=== PATIENT | male | born 1955 | race Caucasian/White ===

== ENCOUNTER 2020-03-11 09:17 | Emergency (ER) | payer BC ==
[~2020-03-11] VITALS: Ht 177.8 cm; Wt 127.3 kg
[2020-03-11 09:44] VITALS: Ht 177.8 cm; Wt 127.3 kg
[2020-03-11 10:59] LABS: BASOPHILS 0.1 % (0-2); EOSINOPHILS 0 % (0-7); HEMATOCRIT 41.7 % (42.0-54.0); HEMOGLOBIN 13.4 g/dL (13.5-17.5); IMMATURE GRANULOCYTES 0.3 % (0-5); LYMPHOCYTES 4.1 % (15-50); MCH 26.8 pg (26.0-34.0); MCHC 32.1 g/dL (31.0-37.0); MCV 83.4 fL (80.0-100.0); MEAN PLATELET VOLUME 9.3 fL (7.4-10.4); MONOCYTES 2.6 % (2-11); NEUTROPHILS 92.9 % (40-80); PLATELET COUNT 146 10x3/uL (130-400); RDW 14.4 % (11.5-14.5); WBC 13.6 10x3/uL (4.8-10.8)
[2020-03-11 11:09] LABS: CALC OSMOLALITY 263 mosm/kg (275-300); CALCIUM 8.7 mg/dL (8.5-10.1); CHLORIDE - SERUM 93 mmol/L (98-107); CREATININE - SERUM 0.8 mg/dL (0.6-1.3); GLUCOSE 125 mg/dL (74-106); POTASSIUM - SERUM 3.8 mmol/L (3.5-5.1); SODIUM 130 mmol/L (136-145); UREA NITROGEN 19 mg/dL (7-18); eGFR NON AFRICAN AMERICAN > 90 mL/min (90-120)
[2020-03-11 11:17] LABS: ALBUMIN 3.4 g/dL (3.4-5.0); ALKALINE PHOSPHATASE 66 U/L (30-120); ALT (SGPT) 30 U/L (10-68); BILIRUBIN - TOTAL 2.09 mg/dL (0.2-1.3)
[2020-03-11 11:42] LABS: BILIRUBIN NEGATIVE (NEGATIVE); GLUCOSE NEGATIVE (NEGATIVE); KETONE NEGATIVE (NEGATIVE); NITRITE NEGATIVE (NEGATIVE); UROBILINOGEN NORMAL (NORMAL)
[2020-03-11 11:44] LABS: BACTERIA FEW /hpf (NEGATIVE); RED CELLS - URINE 0-5 /hpf (0-5); WHITE CELLS - URINE 0-5 /hpf (NEGATIVE)
[2020-03-11] MEDS ORDERED: NAPROSYN500 MG PO (12:47)
[2020-03-11] MEDS ORDERED: BACLOFEN20 M1 PO (12:47)
[2020-03-11] MEDS ORDERED: VIBRAMYCIN 100100 MG PO (12:47)
[2020-03-11 13:17] VITALS: BP 138/52
== END 2020-03-11 13:17 | disposition home or self-care (01) ==
LOC: D.ER 09:17
PROVIDERS: Family Medicine
DX: M54.5 Low back pain (principal); I88.9 Nonspecific lymphadenitis, unspecified; E11.40 Type 2 diabetes mellitus with diabetic neuropathy, unspecified; M79.605 Pain in left leg

== ENCOUNTER 2020-03-14 15:58 | Inpatient (IN) | payer BC ==
[~2020-03-14] VITALS: Ht 177.8 cm; Wt 128.8 kg
[~2020-03-14 15:58] MED LIST: BACLOFEN20 M1 PO; NAPROSYN500 MG PO; VIBRAMYCIN 100100 MG PO
[2020-03-14 16:55] LABS: BASOPHILS 0.1 % (0-2); EOSINOPHILS 0.4 % (0-7); HEMATOCRIT 40.8 % (42.0-54.0); HEMOGLOBIN 12.8 g/dL (13.5-17.5); IMMATURE GRANULOCYTES 2.9 % (0-5); MCH 26.4 pg (26.0-34.0); MCHC 31.4 g/dL (31.0-37.0); MCV 84.1 fL (80.0-100.0); MEAN PLATELET VOLUME 9.3 fL (7.4-10.4); MONOCYTES 3.7 % (2-11); NEUTROPHILS 87.9 % (40-80); PLATELET COUNT 155 10x3/uL (130-400); RBC 4.85 10x6/uL (4.20-6.10); RDW 14.5 % (11.5-14.5); WBC 17.1 10x3/uL (4.8-10.8)
[2020-03-14 17:06] VITALS: BP 151/77
[2020-03-14 17:26] VITALS: BP 151/77; BMI 40.8
[2020-03-14 17:26] LABS: ALKALINE PHOSPHATASE 294 U/L (30-120); ALT (SGPT) 23 U/L (10-68); BILIRUBIN - TOTAL 2.59 mg/dL (0.2-1.3); CALC OSMOLALITY 273 mosm/kg (275-300); CALCIUM 8.5 mg/dL (8.5-10.1); CARBON DIOXIDE 32.7 mmol/L (21.0-32.0); CHLORIDE - SERUM 95 mmol/L (98-107); CREATININE - SERUM 0.6 mg/dL (0.6-1.3); GLUCOSE 140 mg/dL (74-106); PRO BNP 537 pg/mL (0-125); PROTEIN - SERUM 6.4 g/dL (6.4-8.2); SODIUM 136 mmol/L (136-145); UREA NITROGEN 13 mg/dL (7-18); eGFR NON AFRICAN AMERICAN > 90 mL/min (90-120)
[2020-03-14 20:00] VITALS: BP 119/65
--- NOTE | 2020-03-14 20:00 | NUR ---
SITTING UP IN BED. ALERT AND ORIENTED X4. SAO2 IN THE 80S ON ROOM AIR. O2 @ 3L/NC APPLIED AT THIS TIME. DENIES SOB. EMPTIED URINAL AT THIS TIME. EDEMA NOTED TO BLE. BLE ARE RED. LARGE FLUID FILLED BLISTERS NOTED TO LLE. RATES PAIN IN BACK AND LEGS 8. NS @ KVO INFUSING IN LT FOREARM. TALKATIVE WITH STAFF. SR ELEVATED X2. CL IN REACH. REQUESTS PAIN MED WITH PM MEDS.
--- NOTE | 2020-03-14 21:20 | NUR ---
MEDICATED WITH MORPHINE FOR C/O LEG AND BACK PAIN. CL IN REACH.
--- NOTE | 2020-03-14 22:30 | NUR ---
LYING IN BED WITH EYES CLOSED. RESP NONLABORED. NO DISTRESS. CL IN REACH.
[2020-03-15] VITALS: BP 96/62
--- NOTE | 2020-03-15 02:23 | NUR ---
HAS RESTED WELL TONIGHT. NO DISTRESS. RESP NONLABORED. O2 @ 3L/NC. CL IN REACH.
[2020-03-15 04:00] VITALS: BP 119/69
[2020-03-15 04:33] LABS: BASOPHILS 0.1 % (0-2); EOSINOPHILS 0.4 % (0-7); HEMATOCRIT 38.5 % (42.0-54.0); HEMOGLOBIN 12.1 g/dL (13.5-17.5); IMMATURE GRANULOCYTES 3.4 % (0-5); LYMPHOCYTES 5.1 % (15-50); MCH 26.8 pg (26.0-34.0); MCHC 31.4 g/dL (31.0-37.0); MCV 85.4 fL (80.0-100.0); MEAN PLATELET VOLUME 9.6 fL (7.4-10.4); MONOCYTES 5.4 % (2-11); NEUTROPHILS 85.6 % (40-80); PLATELET COUNT 167 10x3/uL (130-400); RBC 4.51 10x6/uL (4.20-6.10); RDW 14.9 % (11.5-14.5); WBC 15.7 10x3/uL (4.8-10.8)
[2020-03-15 04:45] LABS: CALC OSMOLALITY 271 mosm/kg (275-300); CALCIUM 8.2 mg/dL (8.5-10.1); CHLORIDE - SERUM 96 mmol/L (98-107); GLUCOSE 116 mg/dL (74-106); MAGNESIUM - SERUM 1.8 mg/dL (1.8-2.4); PHOSPHOROUS 5.2 mg/dL (2.5-4.9); POTASSIUM - SERUM 4.3 mmol/L (3.5-5.1); SODIUM 135 mmol/L (136-145); UREA NITROGEN 15 mg/dL (7-18); eGFR NON AFRICAN AMERICAN 90 mL/min (90-120)
[2020-03-15 04:56] LABS: CREATININE - SERUM 0.9 mg/dL (0.6-1.3)
[2020-03-15 04:58] LABS: INR 1.17 (0.85-1.17); PROTIME 14.8 SECONDS (11.6-15.0)
--- NOTE | 2020-03-15 07:52 | NUR ---
PT SITTING UP IN BED. RESP EVEN AND UNLABORED. O2 @ 3L NC IN PLACE. PT REPORTS PAIN 2/10 AT HTIS TIME. IV TO LEFT FOREARM WITH NS @ KVO INFUSING VIA PUMP. SITE WITHOUT REDNESS OR EDEMA. LEFT LOWER EXTREMITY, REDDENED WITH TWO LARGE BLISTERS INTACT, ONE RUPTURED BLISTER TO BACK OF KNEE AND DRAINING YELLOW DRAINAGE. PROVIDED URINE SPECIMEN CUP AND EDUCATED PT REGARDING NEED FOR URINE SAMPLE. PT VOICES UNDERSTANDING AT THIS TIME. DENIES FURTHER NEEDS AT THIS TIME. CL WITHIN REACH. ENCOURAGED TO CALL WITH NEEDS. CONTINUE POC
[2020-03-15 08:02] VITALS: BP 119/76
[2020-03-15 10:31] LABS: BILIRUBIN NEGATIVE (NEGATIVE); GLUCOSE NEGATIVE (NEGATIVE); KETONE NEGATIVE (NEGATIVE); NITRITE NEGATIVE (NEGATIVE); SPECIFIC GRAVITY 1.015 (1.005-1.020); UROBILINOGEN NORMAL (NORMAL)
[2020-03-15 10:42] LABS: BACTERIA FEW /hpf (NEGATIVE); EPITHELIAL CELLS OCC /hpf (0-5); RED CELLS - URINE 0-5 /hpf (0-5); WHITE CELLS - URINE NSEEN /hpf (NEGATIVE)
[2020-03-15 11:24] VITALS: BMI 40.7
[2020-03-15 12:06] VITALS: BP 103/69
[2020-03-15 16:46] VITALS: BP 96/55
[2020-03-15 20:00] VITALS: BP 92/50
--- NOTE | 2020-03-15 20:00 | NUR ---
PATIENT SITTING UP IN BED AND TALKING TO HIMSELF. PATIENT IS A&O X3, DISORIENTATED TO SITUATION. NO S/S OF DISTRESS. NO C/O AT THIS TIME. PATIENT IS ON 3L NASAL CANNULA OF 02. PATIENT HAS IV IN LEFT FOREARM, NORMAL SALINE @ KVO. IV IS PATENT WITHOUT REDNESS, SWELLING, OR TENDERNESS. PATIENT HAS TELEMETRY: 104 SINUS TACH, BBB. PATIENT HAS 5 BLISTERS ON LEFT LEG, 3 OF WHICH ARE OPEN AND DRAINING. PATIENT RIGHT LEG IS BRIGHT RED, AND VERY SWOLLEN. PATIENT LEFT LEG IS SLIGHTLY SWOLLEN, AND HAS PATCHES OF REDNESS. CALL LIGHT WITHIN REACH. WILL CONTINUE TO MONITOR.
[2020-03-16] VITALS (7 sets, daily range): BP systolic 81–109; BP diastolic 52–99
--- NOTE | 2020-03-16 04:19 | NUR ---
I have reviewed this patient and I concur with the Shift Assessment completed by the Licensed Practical Nurse today this shift.
[2020-03-16 06:12] LABS: BASOPHILS 0.1 % (0-2); EOSINOPHILS 0.6 % (0-7); HEMATOCRIT 38.5 % (42.0-54.0); HEMOGLOBIN 11.9 g/dL (13.5-17.5); IMMATURE GRANULOCYTES 1.7 % (0-5); LYMPHOCYTES 5.7 % (15-50); MCH 26.7 pg (26.0-34.0); MCHC 30.9 g/dL (31.0-37.0); MCV 86.5 fL (80.0-100.0); MEAN PLATELET VOLUME 9.5 fL (7.4-10.4); MONOCYTES 6.6 % (2-11); NEUTROPHILS 85.3 % (40-80); RBC 4.45 10x6/uL (4.20-6.10); RDW 15.1 % (11.5-14.5); WBC 15.2 10x3/uL (4.8-10.8)
[2020-03-16 06:19] LABS: PLATELET COUNT 206 10x3/uL (130-400)
[2020-03-16 06:26] LABS: ANION GAP 12.1 mmol/L (8-16); CALCIUM 7.8 mg/dL (8.5-10.1); CARBON DIOXIDE 31.4 mmol/L (21.0-32.0); CREATININE - SERUM 2.7 mg/dL (0.6-1.3); POTASSIUM - SERUM 4.5 mmol/L (3.5-5.1)
--- NOTE | 2020-03-16 07:16 | NUR ---
PT SITTING UP IN BED WATCHING TV. RESP EVEN AND UNLABORED AT THIS TIME. O2 @ 3L NC IN PLACE. PT DENIES PAIN AT THIS TIME. IV TO LEFT FOREARM WITH NS @ KVO INFUSING VIA PUMP. SITE WITHOUT REDNESS OR EDEMA. PT DENIES FURTHER NEEDS AT THIS TIME. CL WITHIN REACH. ENCOURAGED TO CALL WITH NEEDS. CONTINUE POC
--- NOTE | 2020-03-16 12:30 | NUR ---
PT RESTING IN BED. BLADDER SCAN PERFORMED AT THIS TIME. 87 ML SCANNED AT THIS TIME. PT DENIES FEELINGS OF NEEDING TO URINATE AT THIS TIME. WILL CONTINUE TO MONITOR.
--- NOTE | 2020-03-16 14:24 | NUR ---
LEFT LEG IS EDEMATOUS, DISCOLORED AND WEEPING LARGE AMOUNTS OF SEROUS DRAINAGE. THE SKIN HAS A COBBLESTONE APPEARANCE AND HAS SEVERAL RUPTURED BLISTERS. THERE WAS NO ODOR NOTED. COVERED OPEN AREAS WITH XEROFORM GAUZE- THEN ABD PADS -THEN WRAPPED WITH KERLIX. RECOMMENDED DAILY DRESSING CHANGES - UNLESS THE DRESSING BECOMES SATURATED - THEN IT WILL BE NECESSARY TO CHANGE IT NEEDED. INSTRUCTED PT TO KEEP LEGS ELEVATED. HE VOICED HIS UNDERSTANDING. WOUND CARE WILL MONITOR.
--- NOTE | 2020-03-16 20:00 | NUR ---
PATIENT RESTING IN BED WITH EYES CLOSED. NO S/S OF ACUTE DISTRESS. NO C/O AT THIS TIME. PATIENT IS ON 3L NASAL CANNULA O2. PATIENT HAS IV IN LEFT FOREARM NORMAL SALINE @ KVO. IV IS PATENT WITHOUT REDNESS, SWELLING, OR TENDERNESS. PATIENT HAS TELEMETRY: 101 SINUS TACH, BBB. PATIENT HAS DRESSING ON LEFT FOOT/LEG. DRESSING IS CLEAN AND INTACT, BUT DRAINAGE HAS STARTED TO SEEP THROUGH. WILL CHANGE DRESSING. PATIENT RIGHT LEG HAS RED PATCHES, BUT IS BETTER THAN THE LEFT LEG. CALL LIGHT WITHIN REACH. WILL CONTINUE TO MONITOR.
--- NOTE | 2020-03-16 22:20 | NUR ---
PATIENT LEFT LEG DRESSING CHANGED. XERO FORM APLIED TO BLISTERS AND OPEN AREAS, COVERED WITH ABDOMNIAL PADS, AND WRAPPED IN CURLEX. DRESSING IS C/D/I. CALL LIGHT WITHIN REACH. WILL CONTINUE TO MONITOR.
[2020-03-17] VITALS: BP 104/57
--- NOTE | 2020-03-17 00:28 | NUR ---
I have reviewed this patient and I concur with the Shift Assessment completed by the Licensed Practical Nurse today this shift.
[2020-03-17 04:00] VITALS: BP 112/64
--- NOTE | 2020-03-17 04:29 | NUR ---
PATIENT DRESSING WAS SATURATED. DRESSING CHANGED AND NOW C/D/I. CALL LIGHT WITHIN REACH. WILL CONTINUE TO MONITOR.
[2020-03-17 05:55] LABS: BASOPHILS 0.1 % (0-2); EOSINOPHILS 1.4 % (0-7); HEMATOCRIT 38.7 % (42.0-54.0); HEMOGLOBIN 12.1 g/dL (13.5-17.5); IMMATURE GRANULOCYTES 2.2 % (0-5); LYMPHOCYTES 4.8 % (15-50); MCH 26.6 pg (26.0-34.0); MCHC 31.3 g/dL (31.0-37.0); MCV 85.1 fL (80.0-100.0); MEAN PLATELET VOLUME 9.3 fL (7.4-10.4); MONOCYTES 5.7 % (2-11); NEUTROPHILS 85.8 % (40-80); PLATELET COUNT 247 10x3/uL (130-400); RBC 4.55 10x6/uL (4.20-6.10); RDW 15.2 % (11.5-14.5)
[2020-03-17 06:05] LABS: ANION GAP 12.8 mmol/L (8-16); CALCIUM 8.5 mg/dL (8.5-10.1); CARBON DIOXIDE 28.6 mmol/L (21.0-32.0); POTASSIUM - SERUM 4.4 mmol/L (3.5-5.1)
[2020-03-17 06:06] LABS: CREATININE - SERUM 4.2 mg/dL (0.6-1.3)
--- NOTE | 2020-03-17 07:47 | NUR ---
AWAKE AND ALERT. ORIENTED X3. NO C/O AT THIS TIME. LUNGS ARE CLEAR BILATERALLY, OCCASSIONAL DRY COUGH REPORTED. WILL MONITOR. SKIN IS INTACT WTIHOUT REDNESS EXCEPT WOUNDS TO LEFT LEG WHICH HAVE A DRESSING IN PLACE. THIS IS SATURATED WITH SEROUS DRAINAGE. WILL CHANGE AFTER BREAKFAST. IV TO LEFT FOREARM IS PATENT WITHOUT REDNESS AT INSERTION SITE. DENIES NEEDS.
[2020-03-17 08:02] VITALS: BP 98/63
--- NOTE | 2020-03-17 09:30 | NUR ---
UP TO CHAIR AT BEDSIDE PER PT. GIVEN BATH WHILE UP AND LINENS CHANGED. DRESSING TO LEFT LEG CHANGED WELL. IS STILL OOZING SEROUS FLUIDS. WILL CONTINUE TO MONITOR.
--- NOTE | 2020-03-17 12:45 | NUR ---
ATE ALL OF LUNCH. DENIES NEEDS. NO CHANGES NOTED.
[2020-03-17 13:58] VITALS: BP 108/70
--- NOTE | 2020-03-17 14:00 | NUR ---
DR JOHNSON HERE AND CHANGED DRESSING TO LEFT LEG.
[2020-03-17 14:38] VITALS: Ht 177.8 cm; Wt 128.8 kg
[2020-03-17 18:13] VITALS: BP 112/61
--- NOTE | 2020-03-17 19:25 | NUR ---
IN AND OUT CATH. REMOVED 100 ML. STERILE TECHNIQUE MAINTAINED. POST VOID RESIDUAL CHECKED WAS 0 ML. CL IN REACH. NO FURTHER NEEDS AT THIS TIME. WCTM
--- NOTE | 2020-03-17 20:36 | NUR ---
IV TO LFA INFILTRATED.DC'D WITH TIP INTACT. RESITED TO RFA WITH 20 G X 1 STICK PER JONATHAN SPOOLER OPERATOR. TOLERATED WELL. DRESSING TO LLE INTACT WITH YELLOW DRAINAGE NOTED. CL IN REACH
--- NOTE | 2020-03-17 22:30 | NUR ---
PATIENT HAS PULLED IV OUT. STANDING UP AT BEDSIDE. APPEARS DISORIENTED TO SURROUNDINS. LINENS CHANGED. ASSISTED PATIENT BACK TO BED. ANSWERS QUESTIONS APPROPRIATLEY AT THIS TIME.IV RESITED TO RFA. CL IN REACH. BED ALARM ON.
[2020-03-18] VITALS: BP 151/74
--- NOTE | 2020-03-18 02:30 | NUR ---
PATIENT WALKING TO NURSES STATION.NO CLOTHES ON. HAS PULLED IV OUT AGAIN.BED ALARM DID NOT SOUND. PATIENT ASSISTED BACK TO ROOM. LINENS CHANGED.PATIENT CLEANED. IV RESITED TO LFA. O2 @ 3L PER NC ON.
[2020-03-18 04:00] VITALS: BP 167/70
--- NOTE | 2020-03-18 04:20 | NUR ---
PATIENT UP IN BATHROOM.IV OUT. HAS DIARRHEA FROM BED TO BATHROOM. LINENS CHANGED. PATIENT CLEANED AND ASSISTED BACK TO BED.BED ALARM DID NOT SOUND. NING STACY PLACE ON BED. CL IN REACH. SR UP X2.IV NOT RESTARTED AT THIS TIME PER PATIENT REQUEST. ANSWERING QUESTIONS APPROPRIATELY.
--- NOTE | 2020-03-18 04:28 | NUR ---
I have reviewed this patient and I concur with the Shift Assessment completed by the Licensed Practical Nurse today this shift.
[2020-03-18 05:49] LABS: BASOPHILS 0.1 % (0-2); EOSINOPHILS 1.6 % (0-7); HEMATOCRIT 35.9 % (42.0-54.0); HEMOGLOBIN 11.3 g/dL (13.5-17.5); LYMPHOCYTES 5.6 % (15-50); MCHC 31.5 g/dL (31.0-37.0); MEAN PLATELET VOLUME 8.8 fL (7.4-10.4); MONOCYTES 7.9 % (2-11); NEUTROPHILS 79.8 % (40-80); PLATELET COUNT 233 10x3/uL (130-400); RBC 4.34 10x6/uL (4.20-6.10); RDW 14.9 % (11.5-14.5); WBC 14.8 10x3/uL (4.8-10.8)
[2020-03-18 05:50] LABS: MCV 82.7 fL (80.0-100.0)
[2020-03-18 06:24] LABS: ANION GAP 13.9 mmol/L (8-16); CALCIUM 8.2 mg/dL (8.5-10.1); CARBON DIOXIDE 27.5 mmol/L (21.0-32.0); CREATININE - SERUM 5.2 mg/dL (0.6-1.3); POTASSIUM - SERUM 4.4 mmol/L (3.5-5.1); VANCOMYCIN - RANDOM 27.9 ug/mL (10.0-20.0)
--- NOTE | 2020-03-18 08:00 | NUR ---
ASSESSMENT PER FLOW SHEET, PATIENT IS WITHOUT DISTRESS.ASSISTED UP TO BEDSIDE COMMODE AND BACK TO BED.FALL PREVENTION IN PLACE WITH NING MAT.
[2020-03-18 09:50] VITALS: BP 115/72
--- NOTE | 2020-03-18 09:50 | NUR ---
SPOKE WITH ALLAN HOU RE..INCREASED BUN,CREAT,LOVENOX AND RED RASH TO BODY.
[2020-03-18 13:40] VITALS: BP 115/78
--- NOTE | 2020-03-18 13:50 | MORECARE ---
CASE MANAGEMENT DISCHARGE SUMMARY PATIENT: CURLY CROWLEY UNIT: [id number] ADM DATE: 03/14/20 AGE: 64 : 53 SEX: M ROOM/BED: D.2205 AUTHOR: JAY RIVERO PHYSICIAN: REFERRING PHYSICIAN: EDDA ARIAS MD DATE OF SERVICE: 03/18/20 Discharge Plan Patient Name: CURLY CROWLEY Facility: [facility]:[place] : 1955 Planned Disposition: Anticipated Discharge Date: Discharge Date: Expected LOS: Initial Reviewer: [email or web address] Initial Review Date: 03/14/2020 Generated: 03/18/20 2:49 pm Patient Name: CURLY CROWLEY Page [phone] at 1350 All edits/amendments must be made on the electronic document DICTATION DATE: 03/18/20 1349 WIRE REPAIRER: GARY 03/18/20 1349 RPT#: [id number] DC DATE: STATUS: ADM IN [facility] [address] [place] [address] END OF REPORT
[2020-03-18 16:00] VITALS: BP 113/62
--- NOTE | 2020-03-18 16:15 | NUR ---
IV SITED TO LEFT HAND X1 STICK USING ASEPTIC TECH,20G.
--- NOTE | 2020-03-18 19:32 | NUR ---
PATIENT RESTING IN BED WITH NO S/S OF DISTRESS. PATIENT HAD LARGE BM. CHANGE MANAGEMENT FACILITATOR ASSISTED PATIENT CLEANING UP AND COMPLETED BED CHANGE. PATIENT DENIES OTHER NEEDS AT THIS TIME. BED IN LOWEST POSITION AND CALL LIGHT WITHIN REACH. ENCOURAGED THE PATIENT TO CALL IF HE HAS NEEDS. WILL CONTINUE TO MONITOR.
[2020-03-18 20:00] VITALS: BP 148/73
[2020-03-19] VITALS: BP 118/60
[2020-03-19 04:00] VITALS: BP 139/82
[2020-03-19 04:38] LABS: BASOPHILS 0.2 % (0-2); EOSINOPHILS 0.8 % (0-7); HEMATOCRIT 36.3 % (42.0-54.0); HEMOGLOBIN 11.5 g/dL (13.5-17.5); IMMATURE GRANULOCYTES 6.5 % (0-5); LYMPHOCYTES 6.6 % (15-50); MCH 26.1 pg (26.0-34.0); MCHC 31.7 g/dL (31.0-37.0); MCV 82.3 fL (80.0-100.0); MEAN PLATELET VOLUME 8.9 fL (7.4-10.4); MONOCYTES 7.2 % (2-11); NEUTROPHILS 78.7 % (40-80); RBC 4.41 10x6/uL (4.20-6.10); RDW 15.1 % (11.5-14.5); WBC 15.5 10x3/uL (4.8-10.8)
[2020-03-19 04:49] LABS: PLATELET COUNT 284 10x3/uL (130-400)
[2020-03-19 04:57] LABS: ANION GAP 14.6 mmol/L (8-16); CALCIUM 8.4 mg/dL (8.5-10.1); CARBON DIOXIDE 26.3 mmol/L (21.0-32.0); POTASSIUM - SERUM 4.9 mmol/L (3.5-5.1); VANCOMYCIN - RANDOM 24.7 ug/mL (10.0-20.0)
--- NOTE | 2020-03-19 06:29 | NUR ---
BLADDER SCAN REVEALED 217 ML
--- NOTE | 2020-03-19 06:41 | NUR ---
PATIENT VOIDED 175 ML POST BLADDER SCAN
[2020-03-19 07:41] LABS: APTT 46.1 SECONDS (22.8-39.4); INR 1.05 (0.85-1.17); PROTIME 13.6 SECONDS (11.6-15.0)
[2020-03-19 07:53] LABS: COMPLEMENT C4 31.5 mg/dL (17.4-52.2)
[2020-03-19 07:59] LABS: ALBUMIN 2.1 g/dL (3.4-5.0); ANION GAP 16.7 mmol/L (8-16); BILIRUBIN - TOTAL 1.37 mg/dL (0.2-1.3); CALCIUM 8.5 mg/dL (8.5-10.1); CARBON DIOXIDE 26.3 mmol/L (21.0-32.0); CREATININE - SERUM 6.2 mg/dL (0.6-1.3); MAGNESIUM - SERUM 3.1 mg/dL (1.8-2.4); PHOSPHOROUS 8.4 mg/dL (2.5-4.9); PROTEIN - SERUM 6.7 g/dL (6.4-8.2); THYROID STIMULATING HORMONE 2.17 uIU/mL (0.36-3.74)
[2020-03-19 08:04] LABS: C-REACTIVE PROTEIN 35.9 mg/dL (0.0-0.9)
[2020-03-19 08:37] LABS: ERYTHROCYTE SEDIMENTATION RATE 58 mm/hr (0-20)
[2020-03-19 09:05] VITALS: BP 140/77
--- NOTE | 2020-03-19 10:20 | NUR ---
PT RESTING QUIETLY IN BED WITH HOB ELEVATED. O2 @ [address]. PT DENIES PAIN AT THIS TIME. NO IV ACCESS AT THIS TIME. DRESSING NOTED TO LLE. CL WITHIN REACH. ENCOURAGED TO CALL WITH NEEDS. CL WITHIN REACH. CONTINUE POC.
[2020-03-19 12:54] VITALS: BP 150/73
--- NOTE | 2020-03-19 14:03 | NUR ---
Nutrition follow-up: Diet: ADA consistent CHO PO intake ~75% of meals Rash worse since admit Wt: 283# Labs reviewed; glucose under better control RDN following.
--- NOTE | 2020-03-19 14:31 | MORECARE ---
CASE MANAGEMENT DISCHARGE SUMMARY PATIENT: CURLY CROWLEY UNIT: [id number] ADM DATE: 03/14/20 AGE: 64 : 53 SEX: M ROOM/BED: D.2205 AUTHOR: JAY RIVERO PHYSICIAN: REFERRING PHYSICIAN: EDDA ARIAS MD DATE OF SERVICE: 03/19/20 Discharge Plan Patient Name: CURLY CROWLEY Facility: [facility]:[place] : 1955 Planned Disposition: Inpatient Rehab Anticipated Discharge Date: Discharge Date: Expected LOS: Initial Reviewer: [id number] Initial Review Date: 03/14/2020 Generated: 03/19/20 3:30 pm Comments DCP- Discharge Planning Updated by [id number]: Mildred Gauthier on 03/19/20 1:[address] Patient Name: CURLY CROWLEY Admission Status: Urgent Accout number: [id number] Admission Date: 03-14-2020 : 1955 Admission Diagnosis:CELLULITIS OF LEFT LOWER LIMB Attending: EDDA ARIAS Current LOS: 5 Anticipated DC Date: Planned Disposition: Inpatient Rehab Primary Insurance: [employer] [employer] TRUE BLUE PPO Discharge Planning Comments: CM met with patient to complete initial dc planning assessment. CM educated patient on the CM role and verbal consent given by patient to complete assessment. Patient lives at home with his spouse where he was independent with his care. At discharge patient plans to return home and feels this is a safe discharge. CM discussed availability of home health, rehab services, and medical equipment. He has a walker that he uses and a lift chair. He thinks he will need rehab when he is discharged and would like to stay here for inpatient rehab. DL signed and placed in chart. If he needs home health he does not care what company as long as they take his insurance. Patient denied known discharge needs at this time. CM will continue to follow and will assist as needed with dc plans/needs. Supervisor [employer]: Mildred Gauthier DCPIA - Discharge Planning Initial Assessment Updated by [id number]: Mildred Gauthier on 03/19/20 2:25 pm * Is the patient Alert and Oriented? Yes * How many steps to enter\exit or inside your home? * PCP [facility] * Pharmacy [facility] [address] * Preadmission Environment Home with Family * ADLs Independent * Equipment Walker * Other Equipment LIFT CHAIR * List name and contact numbers for known caregivers / representatives who currently or will assist patient after discharge: KIM () [phone] * Verbal permission to speak to the caregivers and representatives has been obtained from the patient. N/A * Community resources currently utilized None * Additional services required to return to the preadmission environment? Yes * Can the patient safely return to the preadmission environment? No * Has this patient been hospitalized within the prior 30 days at any hospital? No Coverage Notice Reviewer: [id number] Jass Gauthier Notice Issued Date-Time: 03/19/2020 14:20 Notice Type: IM Discharge Notice Notice Delivered To: Patient Relationship to Patient: Parking Meter Collector Name: Delivery Method: HAND - Hand Delivered Gabrielle Days: Prior Verbal Notification: Recipient Understood Notice: Yes Recipient Signature: Yes Med Rec Note Co-signed by Attending: Coverage Notice Comment: dl with inpatient rehab at [facility] Last DP export: 03/18/20 12:50 p Patient Name: CURLY CROWLEY Page [phone] at 1431 All edits/amendments must be made on the electronic document DICTATION DATE: 03/19/20 143 DIRECTOR OF STUDENT SERVICES: GARY 03/19/201429 RPT#: [id number] DC DATE: STATUS: ADM IN [facility] [address] [place] [address] END OF REPORT
[2020-03-19 16:36] VITALS: BP 145/77
--- NOTE | 2020-03-19 20:20 | NUR ---
SITTING UP IN BED. ALERT AND ORIENTED BUT CONFUSED. ABD IS DISTENDED AND FIRM. USES URINAL. EDEMA NOTED TO BLE. DRSG NOTED TO LLE BUT REDNESS NOTED TO BE STREAKING UP THIGH AND WEAPING. GAIT IS UNSTEADY. SALINE LOCK NOTED TO RT FOREARM. TRIALYSIS NOTED TO LT CHESTWALL WAS PLACED TODAY. BED ALARM ON. O2 @ 3L/NC. RESP IRREG. TAKES O2 OFF FREQUENTLY. SR ELEVATED X2. CL IN REACH. DENIES PAIN.
[2020-03-19 20:34] VITALS: BP 140/69
--- NOTE | 2020-03-20 00:33 | NUR ---
URINATED IN BED. COMPLETE LINEN CHANGE PERFORMED AT THIS TIME.
[2020-03-20 00:45] VITALS: BP 145/69
--- NOTE | 2020-03-20 02:59 | NUR ---
LYING IN BED WITH EYES CLOSED. HOB ELEVATED. O2 IN USE. NO DISTRESS. BED ALARM ON. CL IN REACH.
--- NOTE | 2020-03-20 04:09 | NUR ---
GOT OOB AND UP TO BSC CAUSING BED ALARM TO ACTIVATE. PT INCONT OF BOWELS ON FLOOR AND ALL OVER TOILET. PERICARE PERFORMED. COMPLETE LINEN CHANGE DONE AT THIS TIME AND ASSISTED BACK TO BED. CL IN REACH. BED ALARM ON
[2020-03-20 05:33] LABS: HEMATOCRIT 35.6 % (42.0-54.0); HEMOGLOBIN 11.6 g/dL (13.5-17.5); MCH 26.4 pg (26.0-34.0); MCHC 32.6 g/dL (31.0-37.0); MCV 80.9 fL (80.0-100.0); MEAN PLATELET VOLUME 8.6 fL (7.4-10.4); PLATELET COUNT 288 10x3/uL (130-400); RDW 15.1 % (11.5-14.5)
[2020-03-20 05:57] VITALS: BP 139/72
[2020-03-20 06:03] LABS: ANION GAP 16.6 mmol/L (8-16); BILIRUBIN - TOTAL 1.13 mg/dL (0.2-1.3); CALCIUM 8.5 mg/dL (8.5-10.1); CARBON DIOXIDE 25.6 mmol/L (21.0-32.0); MAGNESIUM - SERUM 3.1 mg/dL (1.8-2.4); POTASSIUM - SERUM 5.2 mmol/L (3.5-5.1); PROTEIN - SERUM 6.8 g/dL (6.4-8.2); VANCOMYCIN - RANDOM 21.9 ug/mL (10.0-20.0)
[2020-03-20 07:11] LABS: RAPID PLASMA REAGIN Non Reactive (Non Reactive)
--- NOTE | 2020-03-20 07:15 | NUR ---
REC'D IN WALKING ROUNDS RESTING WITH EYES CLOSED. RESP EVEN AND UNLABORED WITH NO DISTRESS NOTED. CAN EXPRESS NEEDS AND WANTS. NO C/O NOTED OR VOICED. DRESSING NOTED TO LLE AND CHANGED DAILY AND PRN. ASSESSMENT COMPLETED. C/L IN REACH AT BEDSIDE.
[2020-03-20 08:31] LABS: LYMPHOCYTES 16 % (15-50); MONOCYTES 16 % (2-11); NEUTROPHILS 66 % (40-80); PLATELET ESTIMATE NORMAL
[2020-03-20 08:32] LABS: ROULEAUX OCC
[2020-03-20 09:18] VITALS: BP 140/81
--- NOTE | 2020-03-20 11:37 | NUR ---
I have reviewed this patient and I concur with the Shift Assessment completed by the Licensed Practical Nurse today this shift.
[2020-03-20 13:21] VITALS: BP 149/66
--- NOTE | 2020-03-20 15:11 | NUR ---
Rehab Note- Acute Inpatient Rehab prescreen order received. The patient has BC insurance and will require a PreAuth. Has a pending OT Eval and has been unable to participate in PT on both 03/19 & 03/20 due to increased confusion per PT note. Also question whether will be in need of HD access per Nephrology note. Will continue to follow at this time. Thank you for this referral! Tamara Mena RN Clinical Liaison, [facility]
[2020-03-20 16:44] VITALS: BP 152/82
--- NOTE | 2020-03-20 19:35 | NUR ---
CONFUSED. TALKS TO SELF LOUDLY. LYING IN BED. RESP IRREG, SOB WITH MIN EXERTION BUT HAS O2 OFF. O2 @ 3L/NC PLACED ON PT. PT REFUSES TO KEEP GOWN ON. LAYS IN BED NAKED WITH SHEET BARELY ON. DRSG NOTED TO LLE. LLE IS RED AND STREAKS UP HIS THIGH. SKIN IS MOTTLED RED. ABD IS GROSSLY DISTENDED AND TIGHT. EDEMA NOTED TO BLE. NS @ 75 ML/HR INFUSING IN RT FOREARM. ORIENTED X3 BUT TALKS INCOHERENTLY AT TIMES. SEEMS TO BE WORSE DURING NIGHT DAY SHIFT REPORTS THAT HE IS COMPLETELY ORIENTED. SR ELEVATED X2. CL IN REACH. BED ALARM IN USE FOR PT SAFETY.
[2020-03-20 20:54] VITALS: BP 133/67
[2020-03-21 00:02] VITALS: BP 145/75
--- NOTE | 2020-03-21 02:49 | NUR ---
HASNT SLEPT ALL NIGHT. TALKS TO SELF. ATTEMPTING TO GET OOB WITHOUT HELP. ASSISTED UP TO BSC WITH STAFF X2. VERY WEAK AND UNSTEADY. SOFT BM NOTED. ASSISTED BACK TO BED. PLACED ON O2. CONFUSED. BED ALARM ON. CL IN REACH.
--- NOTE | 2020-03-21 04:35 | NUR ---
EATING DARLIN CRACKERS AND DRINKING MILK. NO DISTRESS. CL IN REACH.
[2020-03-21 04:45] VITALS: BP 129/67
[2020-03-21 05:03] LABS: BASOPHILS 0.2 % (0-2); EOSINOPHILS 1.7 % (0-7); HEMATOCRIT 34.1 % (42.0-54.0); HEMOGLOBIN 10.8 g/dL (13.5-17.5); IMMATURE GRANULOCYTES 9.1 % (0-5); LYMPHOCYTES 6.8 % (15-50); MCH 26.2 pg (26.0-34.0); MCHC 31.7 g/dL (31.0-37.0); MCV 82.6 fL (80.0-100.0); MEAN PLATELET VOLUME 8.6 fL (7.4-10.4); MONOCYTES 11.5 % (2-11); NEUTROPHILS 70.7 % (40-80); PLATELET COUNT 262 10x3/uL (130-400); RBC 4.13 10x6/uL (4.20-6.10); RDW 15.4 % (11.5-14.5); WBC 10.9 10x3/uL (4.8-10.8)
[2020-03-21 05:38] LABS: ALBUMIN 1.9 g/dL (3.4-5.0); ANION GAP 12.4 mmol/L (8-16); BILIRUBIN - TOTAL 0.8 mg/dL (0.2-1.3); CALCIUM 8.2 mg/dL (8.5-10.1); CREATININE - SERUM 5.7 mg/dL (0.6-1.3); MAGNESIUM - SERUM 3.1 mg/dL (1.8-2.4); POTASSIUM - SERUM 5.4 mmol/L (3.5-5.1); PROTEIN - SERUM 6.6 g/dL (6.4-8.2); VANCOMYCIN - RANDOM 18.4 ug/mL (10.0-20.0)
--- NOTE | 2020-03-21 08:31 | NUR ---
PATIENT A/O. CL IN REACH. QUESTIONS ANSWERED TO KIDNEY FUNCTION LAB VALUES. NO NEEDS AT THIS TIME. WCTM
[2020-03-21 08:54] VITALS: BP 139/67
[2020-03-21 13:48] VITALS: BP 153/79
--- NOTE | 2020-03-21 13:58 | NUR ---
OT NOTE: PT DOING BETTER TODAY. CONT TO REPORTS SIGNIFICANT LE PAIN WITH WT BEARING. TOILETING WITH MIN ASSIST; BED MOB WITH MOD ASSIST; TRANSFER WITH USE OF WALKER WITH MIN ASSIST; AMB IN ROOM WITH WALKER AND MIN ASSIST. MIN ASSIST WITH DONNING GOWN AND SIMPLE GROOMING.. SET UP WITH FEEDING. LESS CONFUSION NOTED TODAY. TOLERATED SITTING UP IN CHAIR APPROX 2 HRS TODAY. ANNA LOUIS, OTR/L [phone]
--- NOTE | 2020-03-21 14:27 | NUR ---
OT NOTE: PT COMPLETED BED MOB WITH MOD/MAX A. PT COMPLETED BED TO CHAIR TSF WITH MOD A. PT COMPLETED UE AROM AXS WITH WALKER MANAGEMENT. PT COMPLETED FACE HYGIENE WITH SETUP. [phone] THANK YOU,VALERIO SAINI
--- NOTE | 2020-03-21 15:41 | NUR ---
DRESSING CHANGE TO LEFT CHEST TIALYSIS CATH. BIOPATCH IN PLACE NOW. DRESSING CDI. CL IN REACH. SPOKE WITH DAUGHTER EMILY ON PHONE. HAD SECURITY CODE. QUESTIONS ANSWERED. THEY WERE WORRIED BECAUSE THEIR MOTHER WASN'T ABLE TO GET IN TOUCH WITH PATIENT. WCTM
[2020-03-21 17:28] VITALS: BP 171/82
[2020-03-21 20:00] VITALS: BP 141/74
[2020-03-22 04:00] VITALS: BP 121/61
[2020-03-22 04:33] LABS: BASOPHILS 0.1 % (0-2); EOSINOPHILS 1.8 % (0-7); HEMATOCRIT 35.8 % (42.0-54.0); HEMOGLOBIN 11.3 g/dL (13.5-17.5); IMMATURE GRANULOCYTES 10.6 % (0-5); LYMPHOCYTES 10.7 % (15-50); MCH 26.5 pg (26.0-34.0); MCHC 31.6 g/dL (31.0-37.0); MEAN PLATELET VOLUME 8.5 fL (7.4-10.4); MONOCYTES 8.3 % (2-11); NEUTROPHILS 68.5 % (40-80); PLATELET COUNT 274 10x3/uL (130-400); RBC 4.26 10x6/uL (4.20-6.10); RDW 15.5 % (11.5-14.5); WBC 10.2 10x3/uL (4.8-10.8)
[2020-03-22 05:17] LABS: ALBUMIN 1.9 g/dL (3.4-5.0); ANION GAP 10.6 mmol/L (8-16); BILIRUBIN - TOTAL 0.59 mg/dL (0.2-1.3); CALCIUM 8.4 mg/dL (8.5-10.1); CARBON DIOXIDE 30.8 mmol/L (21.0-32.0); CREATININE - SERUM 5.2 mg/dL (0.6-1.3); MAGNESIUM - SERUM 2.8 mg/dL (1.8-2.4); POTASSIUM - SERUM 5.4 mmol/L (3.5-5.1); VANCOMYCIN - RANDOM 23.7 ug/mL (10.0-20.0)
[2020-03-22 08:47] LABS: CREATININE - URINE 65.1 mg/dL (30-125); PRO/CRE RATIO URINE 0.2 mg/g; PROTEIN - URINE 15.9 mg/dL (0.0-11.9)
[2020-03-22 09:31] VITALS: BP 146/75
[2020-03-22 10:09] LABS: ANTI-GLOMERULAR BASMENT MEMBRN 5 units (0-20)
--- NOTE | 2020-03-22 12:47 | NUR ---
OT NOTE: BED MOB WITH MIN/MOD ASSIST; LESS PAIN IN L LEG DURING MOVEMENT TODAY; SIT TO STAND WITH MIN ASSIST , HOWEVER, EXT CUES FOR WALKER MGMT TODAY. UNSURE TO WHY THIS WAS HARDER.. DECREASED SAFETY AWARENESS DURING IN ROOM AMBULATION. ABLE TO PERFORM SIMPLE GROOMING TASKS WITH SET UP. PT WOULD BENEFIT FROM SHOWER, HOWEVER, UNSURE ABOUT L LE GETTING WET. ABLE TO PERFORM FEEDING AND ABLE TO CLIFFORD GOWN WITH SET UP ANNA LOUIS, OTR/L [phone]
[2020-03-22 13:29] VITALS: BP 168/85
[2020-03-22 15:09] LABS: ANCA - ANTIMYELOPEROXIDASE <9.0 U/mL (0.0-9.0); ANCA - ANTIPROTEINASE 3 <3.5 U/mL (0.0-3.5); ANCA - ATYPICAL <1:20 titer (Neg:<1:20); ANCA - CYTOPLASMIC <1:20 titer (Neg:<1:20); ANCA - PERINUCLEAR <1:20 titer (Neg:<1:20)
[2020-03-22 17:50] VITALS: BP 139/79
[2020-03-22 20:00] VITALS: BP 122/75
[2020-03-23] VITALS: BP 138/71
[2020-03-23 04:00] VITALS: BP 146/86
[2020-03-23 04:34] LABS: BASOPHILS 0.3 % (0-2); EOSINOPHILS 2.5 % (0-7); HEMATOCRIT 36.1 % (42.0-54.0); HEMOGLOBIN 11.1 g/dL (13.5-17.5); IMMATURE GRANULOCYTES 7.8 % (0-5); MCH 25.9 pg (26.0-34.0); MCHC 30.7 g/dL (31.0-37.0); MCV 84.3 fL (80.0-100.0); MEAN PLATELET VOLUME 8.9 fL (7.4-10.4); MONOCYTES 10.3 % (2-11); NEUTROPHILS 70.1 % (40-80); PLATELET COUNT 295 10x3/uL (130-400); RBC 4.28 10x6/uL (4.20-6.10); RDW 15.4 % (11.5-14.5); WBC 11.5 10x3/uL (4.8-10.8)
[2020-03-23 05:07] LABS: BILIRUBIN - TOTAL 0.63 mg/dL (0.2-1.3); CALCIUM 8.7 mg/dL (8.5-10.1); CARBON DIOXIDE 30.9 mmol/L (21.0-32.0); CREATININE - SERUM 4.8 mg/dL (0.6-1.3); MAGNESIUM - SERUM 2.6 mg/dL (1.8-2.4); POTASSIUM - SERUM 5.9 mmol/L (3.5-5.1); PROTEIN - SERUM 7.2 g/dL (6.4-8.2); VANCOMYCIN - RANDOM 27.8 ug/mL (10.0-20.0)
--- NOTE | 2020-03-23 07:46 | NUR ---
PT RESTING IN BED, RESTLESS. RESP EVEN AND UNLABORED. O2 @ 3L NC IN PLACE. DENIES PAIN AT THIS TIME. TRIALYSIS TO LEFT CHEST IN PLACE. SITE WITHOUT REDNESS OR EDEMA. DENIES FURTHER NEEDS AT THIS TIME. CL WITHIN REACH. ENCOURAGED TO CALL WITH NEEDS. NIKA POC
[2020-03-23 07:59] VITALS: BP 174/85
--- NOTE | 2020-03-23 10:51 | NUR ---
SPOKE WITH DR. MONO REGARDING UTILIZING TRALYSIS FOR IV USE. HE VOICES THAT USE OF TRIALYSIS IS OK FOR IV USE
[2020-03-23 12:02] VITALS: BP 144/80
--- NOTE | 2020-03-23 14:25 | NUR ---
OT NOTE:(AM) PT COMPLETED SUPINE TO SIT WITH SBA. PT COMPLETED SIT TO STAND WITH SBA. PT COMPLETED BED TO CHAIR TRANSFER WITH CGA. PT COMPLETED TOILETING TASK WITH SET UP. (PM) PT COMPLETED BED MOB WITH SBA. PT COMPLETED FACE HYGIENE WITH SET UP. [phone] THANK YOU,VALERIO SAINI
[2020-03-23 15:39] VITALS: BP 167/96
--- NOTE | 2020-03-23 19:20 | NUR ---
CONFUSED. ORIENTED TO SELF ONLY. RESTLESS, TALKING LOUDLY TO SELF. DIFF TO REDIRECT. TRIES TO GET OOB WITHOUT HELP. NING AND BED ALARM ON. DRSG NOTED TO LLE. LLE IS SWOLLEN, RED, SCALY AND REDNESS STREAKS UP TO LT THIGH. ABD IS DISTENDED. INCONT OF BLADDER AT TIMES. USES URINAL AND ALSO SPILLS IT IN THE BED. BOTTLED RED RASH NOTED TO TRUNK. BRUISES NOTED TO BUE. SCAB NOTED TO LT FOREHEAD IS BLEEDING. RESP IRREG AND NOT KEEPING O2 ON. O2 @ 3L/NC ORDERED. EDEMA NOTED T BLE. NS @ KVO INFUSING IN LT CHEST WALL TRIALYSIS BUT DISCONNECTED IN ATTEMPT TO KEEP PT FROM PULLING OUT WHILE TRYING TO GET OOB WITHOUT HELP. SR ELEVATED X2. CL IN REACH.
[2020-03-23 20:00] VITALS: BP 159/93
--- NOTE | 2020-03-23 21:17 | NUR ---
MEDICATED WITH ZOFRAN FOR C/O NAUSEA
--- NOTE | 2020-03-23 22:00 | NUR ---
SPILLED URINAL IN BED. COMPLETE LINEN CHANGE PERFORMED.
--- NOTE | 2020-03-23 23:00 | NUR ---
HAS BEEN TRYING TO GET OOB EVERY FEW MINUTES. VERY CONFUSED, TALKING INCOHERENTLY. UNABLE TO REORIENT OR REDIRECT. NING AND BED ALARM ON.
[2020-03-24] VITALS: BP 138/71
--- NOTE | 2020-03-24 00:15 | NUR ---
QUIET AT THIS TIME. LYING IN BED WITH EYES CLOSED. NING ALARM AND BED ALARM ON.
--- NOTE | 2020-03-24 01:35 | NUR ---
TALKING TO SELF. VERY CONFUSED. NING AND BED ALARM ON. ORIENTED TO SELF ONLY. ENCOURAGED TO GET SOME REST. CL IN REACH.
[2020-03-24 04:00] VITALS: BP 115/73
[2020-03-24 05:33] LABS: BASOPHILS 0.1 % (0-2); EOSINOPHILS 1.2 % (0-7); HEMOGLOBIN 10.8 g/dL (13.5-17.5); IMMATURE GRANULOCYTES 4.8 % (0-5); MCH 26.4 pg (26.0-34.0); MCHC 30.9 g/dL (31.0-37.0); MCV 85.6 fL (80.0-100.0); MEAN PLATELET VOLUME 8.6 fL (7.4-10.4); MONOCYTES 8.4 % (2-11); NEUTROPHILS 78.5 % (40-80); PLATELET COUNT 283 10x3/uL (130-400); RBC 4.09 10x6/uL (4.20-6.10); RDW 15.5 % (11.5-14.5); WBC 12.2 10x3/uL (4.8-10.8)
[2020-03-24 05:46] LABS: ALBUMIN 2.1 g/dL (3.4-5.0); BILIRUBIN - TOTAL 0.77 mg/dL (0.2-1.3); CALCIUM 8.7 mg/dL (8.5-10.1); CARBON DIOXIDE 31.3 mmol/L (21.0-32.0); CREATININE - SERUM 4.2 mg/dL (0.6-1.3); MAGNESIUM - SERUM 2.4 mg/dL (1.8-2.4); PROTEIN - SERUM 7.6 g/dL (6.4-8.2); VANCOMYCIN - RANDOM 22.1 ug/mL (10.0-20.0)
[2020-03-24 05:47] LABS: ANION GAP 11.9 mmol/L (8-16); POTASSIUM - SERUM 6.2 mmol/L (3.5-5.1)
[2020-03-24 08:00] VITALS: BP 114/67
[2020-03-24 12:05] VITALS: BP 129/68
[2020-03-24 16:00] VITALS: BP 124/74
[2020-03-24 16:51] LABS: ANION GAP 11.9 mmol/L (8-16); CARBON DIOXIDE 32.9 mmol/L (21.0-32.0); CREATININE - SERUM 4.1 mg/dL (0.6-1.3); POTASSIUM - SERUM 5.8 mmol/L (3.5-5.1)
--- NOTE | 2020-03-24 19:00 | NUR ---
BEDSIDE REPORT RECEIVED AND CARE OF PT ASSUMED. PT AMBULATING TO RESTROOM AT THIS TIME...ASSISTED AND POSITIONED BACK IN BED FOR COMFORT.
[2020-03-24 19:43] VITALS: BP 125/65
--- NOTE | 2020-03-24 20:56 | NUR ---
HS MEDICATIONS GIVEN TO INCLUDE TYLENOL AND ZOFRAN PER REQUEST FOR ABDOMINAL PAIN, PER PRN ORDER. WILL CONTINUE TO MONITOR FOR NEEDS.
[2020-03-25 04:00] VITALS: BP 146/81
--- NOTE | 2020-03-25 04:00 | NUR ---
BED ALARM SOUNDING....ARRIVED IN ROOM WITH PT STANDING BESIDE BED...HE HAD BM ALL OVER BED AND ON FLOOR. PT CLEANED UP AND ALL BEDDING CHANGED.
--- NOTE | 2020-03-25 04:38 | NUR ---
GAVE TYLENOL PER REQUEST FOR GENERALIZED PAIN, PER PRN ORDER. WILL MONITOR FOR EFFECTIVENESS.
[2020-03-25 06:33] LABS: BASOPHILS 0.2 % (0-2); EOSINOPHILS 1.5 % (0-7); HEMATOCRIT 35.3 % (42.0-54.0); HEMOGLOBIN 10.6 g/dL (13.5-17.5); IMMATURE GRANULOCYTES 2.1 % (0-5); LYMPHOCYTES 8.1 % (15-50); MCH 26.5 pg (26.0-34.0); MEAN PLATELET VOLUME 8.6 fL (7.4-10.4); MONOCYTES 8.2 % (2-11); NEUTROPHILS 79.9 % (40-80); PLATELET COUNT 237 10x3/uL (130-400); RDW 15.7 % (11.5-14.5); WBC 11.5 10x3/uL (4.8-10.8)
[2020-03-25 06:35] LABS: MCV 88.3 fL (80.0-100.0)
[2020-03-25 07:02] LABS: ALBUMIN 2.1 g/dL (3.4-5.0); ANION GAP 10.4 mmol/L (8-16); BILIRUBIN - TOTAL 0.74 mg/dL (0.2-1.3); CALCIUM 8.7 mg/dL (8.5-10.1); CARBON DIOXIDE 33.2 mmol/L (21.0-32.0); CREATININE - SERUM 3.9 mg/dL (0.6-1.3); PROTEIN - SERUM 7.7 g/dL (6.4-8.2)
[2020-03-25 07:07] LABS: POTASSIUM - SERUM 6.6 mmol/L (3.5-5.1)
[2020-03-25 08:03] VITALS: BP 104/64
--- NOTE | 2020-03-25 08:19 | NUR ---
DR. MOON PAGED REGARDING ELEVATED POTASSIUM
--- NOTE | 2020-03-25 10:15 | NUR ---
BLADDER SCAN PERFORMED POST URINATION OF 250ML. SCANNED 40ML IN BLADDER
--- NOTE | 2020-03-25 10:49 | NUR ---
PT INCONTINENT OF BOWEL. PROVIDED PERSONAL CARE AND BED LINENS CHANGED. PT PRESENT, AMBULATED PT TO BEDSIDE CHAIR. PT MARIZA WELL. O2 IN PLACE. CHAIR NING ALARM IN PLACE AND ON. CL WITHIN REACH.
--- NOTE | 2020-03-25 11:02 | NUR ---
PT VOIDED 300ML CLEAR YELLOW URINE.
--- NOTE | 2020-03-25 12:55 | NUR ---
ASSISTED PT TO BSC FROM CHAIR AT BEDSIDE. MEDIUM LIGHT BROWN BM NOTED. ASSISTED PT BACK TO CHAIR AT BEDSIDE. PT MARIZA WELL. AT TIMES HAS DIFFICULTIES FOLLOWING DIRECTIONS. CONTINUED PROVIDE RE-EDUCATION REGARDING PT SAFETY.
[2020-03-25 13:03] VITALS: BP 106/63
--- NOTE | 2020-03-25 14:50 | NUR ---
PT RESTING QUIETLY IN BED. RESP EVEN AND UNLABORED. O2 @ 3L IN PLACE. CL WITHIN REACH.
[2020-03-25 17:32] VITALS: BP 150/78
--- NOTE | 2020-03-25 19:00 | NUR ---
BEDSIDE REPORT RECEIVED AND CARE OF PT ASSUMED. PT LYING IN LOW SHIELDS'S POSITION WATCHING TV. ALERT, BUT NOT ORIENTED TO SITUATION. LEFT CHEST TRIALYSIS PATENT WITH NS INFUSING AT 75 ML/HR. DRESSING ON LEFT FOOT CLEAN AND DRY. WLL MONITOR FOR NEEDS.
[2020-03-25 20:00] VITALS: BP 118/80
--- NOTE | 2020-03-25 20:15 | NUR ---
HS SNACK GIVEN: MILK AND DARLIN CRACKERS, PER DIET ORDER.
--- NOTE | 2020-03-25 20:28 | NUR ---
HS MEDICATIONS GIVEN TO INCLUDE TYLENOL PO PER REQUEST FOR PAIN. FSBS 131 THIS CHECK REQUIRING NO COVERAGE PER SLIDING SCALE. O2 IN USE VIA NC AT 3L. WILL CONTINUE TO MONITOR FOR NEEDS.
--- NOTE | 2020-03-25 22:00 | NUR ---
ASSISTED PT UP TO USE BSC TO HAVE LARGE, LOOSE BM. CHANGED BEDPADS, CLEANSED PT WELL AND POSITIONED BACK IN BED. SIDE RAILS UP X1 AND BED ALARM IN USE FOR SAFETY.
--- NOTE | 2020-03-25 22:15 | NUR ---
DRESSING COMING OFF TRIALYSIS....CHANGED DRESSING USING STERILE TECHNIQUE.
--- NOTE | 2020-03-25 23:15 | NUR ---
PT PICKING AT SORE ON LEFT FOREHEAD AND NOW BLEEDING. CLEANSED WOUND WITH SALINE AND PLACED LARGE BANDAID OVER WOUND.
[2020-03-26] VITALS: BP 108/80
--- NOTE | 2020-03-26 00:34 | NUR ---
GAVE ZOFRAN IVP PER PT C/O NAUSEA, PER PRN ORDER. WILL MONITOR FOR EFFECTIVENESS.
--- NOTE | 2020-03-26 00:45 | NUR ---
ALARM SOUNDING...PT UP TO RESTROOM...DESPITE BEING ASKED TO USE BSC FOR SAFETY. UNSTEADY ON FEET. POSITIONED BACK IN BED...PT REFUSES TO WEAR GOWN AND WILL NOT COVER HIMSELF IN BED.
--- NOTE | 2020-03-26 01:21 | NUR ---
ALARM SOUNDING...PT UP TO BSC...INCONTINENT OF BOWELS WITH STOOL ON FLOOR, ALL OVER BSC AND ON WALL. PT CLEANED UP AND POSITIONED BACK IN BED FOR COMFORT. PT DISORIENTED TO SITUATION.
--- NOTE | 2020-03-26 03:42 | NUR ---
ALARM SOUNDING...PT UP PEEING ALL OVER THE FLOOR. DIRECTED HIM TO THE BSC AND CLEANED ROOM AND CHANGED BEDDING. POSITIONED BACK IN BED FOR COMFORT.
[2020-03-26 04:00] VITALS: BP 110/71
--- NOTE | 2020-03-26 04:48 | NUR ---
ALARM SOUNDING...PT BANGING WALKER INTO BATHROOM DOOR...REFUSING TO USE BSC. ASSISTED TO VOID AND POSITIONED BACK IN BED FOR COMFORT.
[2020-03-26 05:25] LABS: ALBUMIN 2.1 g/dL (3.4-5.0); ANION GAP 9.8 mmol/L (8-16); BILIRUBIN - TOTAL 0.64 mg/dL (0.2-1.3); CALCIUM 8.3 mg/dL (8.5-10.1); CARBON DIOXIDE 34.3 mmol/L (21.0-32.0); CREATININE - SERUM 3.6 mg/dL (0.6-1.3); PROTEIN - SERUM 7.5 g/dL (6.4-8.2)
[2020-03-26 05:28] LABS: POTASSIUM - SERUM 5.1 mmol/L (3.5-5.1)
[2020-03-26 05:32] LABS: HEMATOCRIT 34.5 % (42.0-54.0); HEMOGLOBIN 10.5 g/dL (13.5-17.5); LYMPHOCYTES 11.3 % (15-50); MCH 26.5 pg (26.0-34.0); MCHC 30.4 g/dL (31.0-37.0); MCV 87.1 fL (80.0-100.0); MEAN PLATELET VOLUME 8.4 fL (7.4-10.4); NEUTROPHILS 78.5 % (40-80); RBC 3.96 10x6/uL (4.20-6.10); RDW 14.8 % (11.5-14.5); WBC 12.2 10x3/uL (4.8-10.8)
[2020-03-26 05:42] LABS: PLATELET COUNT 355 10x3/uL (130-400)
[2020-03-26 08:02] VITALS: BP 121/67
--- NOTE | 2020-03-26 09:56 | NUR ---
HE IS A LITTLE CONFUSED, STATES IT'S "1959". THE BED ALARM IS ON, THE CALL LIGHT AND URNIAL IS WITHIN REACH. THE LEFT LEG IS WRAPPED WITH AN EUSEBIO, REDNESS FROM THE KNEE DOWN.
[2020-03-26 11:45] VITALS: BP 116/75
--- NOTE | 2020-03-26 14:22 | NUR ---
Nutrition follow-up: Visited with pt during lunch. Pt at 100% of meal No c/o at this time Diet: renal ADA PO intake 100% of most meals Labs reviewed Wt: 283# RDN following.
--- NOTE | 2020-03-26 14:43 | NUR ---
OT NOTE: PT IN BED.. WANTING TO GET UP TO BATHROOM.. PERFORMED BED MOB WITH MIN ASSIST; AMB WITH WALKER TO BATHROOM AND ABLE TO MAINTAIN GOOD BALANCE IN STANDING WHILE URINATING. REFUSED TO PUT ON GOWN AT THIS TIME. AMB IN ROOM WITH WALKER AND CGA; TRANSFER TO CHAIR WITH MIN ASSIST; ABLE TO TRANSFER FROM CHAIR TO BED WITH MOD ASSIST FOR SIT TO STAND AND MIN ASSIST TO TRANSFER BACK TO BED. REFUSES TO WEAR SOCKS, BUT DID FINALLY AGREE TO CLIFFORD GOWN WITH MIN ASSIST. ANNA LOUIS, OTR/L [id number]
--- NOTE | 2020-03-26 15:19 | NUR ---
OT NOTE: PT COMPLETED SUPINE TO SIT WITH SBA. PT COMPLETED ADL MOB TO BATHROOM WITH SBA USING RW. PT COMPLETED TOILETING WITH SPV. PT COMPLETED LB HYGIENE TASKS IN STANDING WITH SBA/CGA. PT REQUIRED VERBAL CUES FOR INCREASED SAFETY. [phone] THANK YOU,VALERIO SAINI
[2020-03-26 16:49] VITALS: BP 120/66
--- NOTE | 2020-03-26 19:00 | NUR ---
BEDSIDE REPORT RECEIVED AND CARE OF PT ASSUMED. PT LYING IN HIGH SHIELDS'S POSITION WATCHING TV....ORIENTED TO SELF AND TIME ONLY...NOT TO PLACE OR SITUATION. LEFT CHEST TRIALYSIS PATENT WITH NS INFUSING AT 75 ML/HR. WILL MONITOR FOR NEEDS.
--- NOTE | 2020-03-26 20:16 | NUR ---
HS MEDICATIONS GIVEN. FSBS 179 THIS CHECK...PT DECLINED TO TAKE INSULIN PER SLIDING SCALE.
--- NOTE | 2020-03-26 20:30 | NUR ---
GAVE DARLIN CRACKERS, VANILLA WAFERS, AND MILK FOR HS SNACK PER DIET ORDERS. WILL CONTINUE TO MONITOR FOR NEEDS.
[2020-03-26 21:50] VITALS: BP 134/71
[2020-03-27 00:03] VITALS: BP 137/80
--- NOTE | 2020-03-27 00:05 | NUR ---
ASSISTED PT UP TP BSC FOR BM. POSITIONED BACK IN BED FOR COMFORT.
--- NOTE | 2020-03-27 01:10 | NUR ---
ASSISTED PT UP TO USE BSC FOR BM. CHANGED ALL BEDDING DUE TO INCONTINENCE. POSITIONED BACK IN BED FOR COMFORT. CALL LIGHT WITHIN REACH.
[2020-03-27 04:55] LABS: BASOPHILS 0.2 % (0-2); EOSINOPHILS 2.5 % (0-7); HEMATOCRIT 33.1 % (42.0-54.0); HEMOGLOBIN 9.5 g/dL (13.5-17.5); LYMPHOCYTES 9.3 % (15-50); MCH 25.5 pg (26.0-34.0); MCHC 28.7 g/dL (31.0-37.0); MONOCYTES 8.9 % (2-11); NEUTROPHILS 78.1 % (40-80); PLATELET COUNT 295 10x3/uL (130-400); RBC 3.72 10x6/uL (4.20-6.10); RDW 15.1 % (11.5-14.5); WBC 9.3 10x3/uL (4.8-10.8)
[2020-03-27 05:17] LABS: ANION GAP 5.4 mmol/L (8-16); BILIRUBIN - TOTAL 0.55 mg/dL (0.2-1.3); CALCIUM 8.5 mg/dL (8.5-10.1); CARBON DIOXIDE 35.5 mmol/L (21.0-32.0); CREATININE - SERUM 3.3 mg/dL (0.6-1.3); POTASSIUM - SERUM 4.9 mmol/L (3.5-5.1); PROTEIN - SERUM 7.6 g/dL (6.4-8.2)
[2020-03-27 05:24] VITALS: BP 165/77
[2020-03-27 09:07] VITALS: BP 165/77
--- NOTE | 2020-03-27 10:02 | NUR ---
HE IS HAPPY, BUT STILL CONFUSED AT TIMES.
[2020-03-27 12:45] VITALS: BP 150/75
--- NOTE | 2020-03-27 14:01 | NUR ---
Rehab Note- Spoke with Jennifer, Clinical Reviewer with [facility] and stated that the patient was SNF appropriate and not for an inpatient acute rehab stay. SPoke with AARON Christopher to inform her. Thank you for this referral! Tamara Mena RN Clinical Liaison, [facility]
--- NOTE | 2020-03-27 14:57 | MORECARE ---
CASE MANAGEMENT DISCHARGE SUMMARY PATIENT: CURLY CROWLEY UNIT: [id number] ADM DATE: 03/14/20 AGE: 64 : 53 SEX: M ROOM/BED: D.2205 AUTHOR: JAY RIVERO PHYSICIAN: REFERRING PHYSICIAN: EDDA ARIAS MD DATE OF SERVICE: 03/27/20 Discharge Plan Patient Name: CURLY CROWLEY Facility: [facility]:[place] : 1955 Planned Disposition: Inpatient Rehab Anticipated Discharge Date: Discharge Date: Expected LOS: Initial Reviewer: [id number] Initial Review Date: 03/14/2020 Generated: 03/27/20 3:56 pm Comments DCP- Discharge Planning Updated by [email or web address]: Mildred Gauthier on 03/27/20 1:[address] PATIENT WAS DENIED INPATIENT REHAB, WILL NEED TO SPEAK WITH HIM ABOUT HIS SECOND CHOICE DCP- Discharge Planning Updated by [email or web address]: Mildred Gauthier on 03/19/20 1:[address] Patient Name: CURLY CROWLEY Admission Status: Urgent Accout number: [id number] Admission Date: 03-14-2020 : 1955 Admission Diagnosis:CELLULITIS OF LEFT LOWER LIMB Attending: EDDA ARIAS Current LOS: 5 Anticipated DC Date: Planned Disposition: Inpatient Rehab Primary Insurance: [employer] TRUE BLUE PPO Discharge Planning Comments: CM met with patient to complete initial dc planning assessment. CM educated patient on the CM role and verbal consent given by patient to complete assessment. Patient lives at home with his spouse where he was independent with his care. At discharge patient plans to return home and feels this is a safe discharge. CM discussed availability of home health, rehab services, and medical equipment. He has a walker that he uses and a lift chair. He thinks he will need rehab when he is discharged and would like to stay here for inpatient rehab. DL signed and placed in chart. If he needs home health he does not care what company as long as they take his insurance. Patient denied known discharge needs at this time. CM will continue to follow and will assist as needed with dc plans/needs. Benefits Officer: Mildred Gauthier DCPIA - Discharge Planning Initial Assessment Updated by [email or web address]: Mildred Gauthier on 03/19/20 2:25 pm * Is the patient Alert and Oriented? Yes * How many steps to enter\exit or inside your home? * PCP ARIAS * Pharmacy [facility] [address] * Preadmission Environment Home with Family * ADLs Independent * Equipment Walker * Other Equipment LIFT CHAIR * List name and contact numbers for known caregivers / representatives who currently or will assist patient after discharge: KIM () [phone] * Verbal permission to speak to the caregivers and representatives has been obtained from the patient. N/A * Community resources currently utilized None * Additional services required to return to the preadmission environment? Yes * Can the patient safely return to the preadmission environment? No * Has this patient been hospitalized within the prior 30 days at any hospital? No Coverage Notice Reviewer: [id number] - Mildred Gauthier Notice Issued Date-Time: 03/19/2020 14:20 Notice Type: IM Discharge Notice Notice Delivered To: Patient Relationship to Patient: Soil Fertility Extension Specialist Name: Delivery Method: HAND - Hand Delivered Gabrielle Days: Prior Verbal Notification: Recipient Understood Notice: Yes Recipient Signature: Yes Med Rec Note Co-signed by Attending: Coverage Notice Comment: dl with inpatient rehab at [facility] Last DP export: 03/19/20 1:31 p Patient Name: CURLY CROWLEY Page [id number] at 1457 All edits/amendments must be made on the electronic document DICTATION DATE: 03/27/201456 TROUBLE DISPATCHER: GARY 03/27/201456 RPT#: [id number] DC DATE: STATUS: ADM IN [facility] [address] [place] [address] END OF REPORT
--- NOTE | 2020-03-27 15:17 | NUR ---
OT NOTE: PT REQUIRED CGA FOR SIT TO STAND. PT COMPLETED STANDING BALANCE WHILE USING TOILET WITH RW AND SBA. PT COMPLETED HAND HYGIENE WITH SETUP. PT COMPLETED BUE AROM EXS. PT NOTED THAT RLE IS BURNING. LUO NOTIFIED NURSE. [phone] THANK YOU,VALERIO SAINI
--- NOTE | 2020-03-27 15:30 | NUR ---
OT NOTE: PT REPORTS FEELING BETTER TODAY. REPORTS LESS PAIN IN LEG WITH MOVEMENT. BED MOB WITH MIN ASSIST; ABLE TO AMB TO BATHROOM WITH WALKER AND CGA.. OCCASSIONAL CUES FOR SAFETY AWARENESS; ABLE TO AMB TO SINK AND PERFORM SINK HYGIENE WITH CGA; TRANSFERS FROM CHAIR TO BED TO CHAIR WITH VERBAL INSTRUCTION FOR SIT TO STAND AND IMPROVEMENT NOTED AFTER SEVERAL TRIALS. ANNA LOUIS, OTR/L [phone]
[2020-03-27 17:47] VITALS: BP 171/92
--- NOTE | 2020-03-27 20:09 | NUR ---
BED ALRAM SOUNDING. PT STANDING UP ON SIDE OF BED. STATING THAT HE WANTS TO GO TO THE RESTROOM. HE IS AWARE THAT HE SHOULD CALL FOR HELP WHEN GETTING IN AND OUT OF BED. ASSISTED PT WITH URINAL AND BACK TO BED. PT HAS NO COMPLINTS AT THIS TIME. PT ENCOURAGED TO CALL FOR HELP WHEN GEETING IN AND OUT OF BED AND EDUCATED ON HOW IMPORTANT THIS IS. PT STATES THAT HE UNDERSTANDS. CALL LIGHT AND OTHER PERSONAL ITEMS WITH IN REACH. BED IS IN LOWEST POSITION. BED NING ALARM ON AND ACTIVE. SIDERAILS x2. WILL CONTINUE TO MONITOR.
[2020-03-27 21:42] VITALS: BP 152/85
[2020-03-28 00:23] VITALS: BP 151/88
--- NOTE | 2020-03-28 01:52 | NUR ---
ASSIST PT AND FAMILY PARTNER WITH BED BATH AND LINEN CHANGE. PT TOLERATED WELL. NO SIGNS OF DISTRESS NOTED. RESPIRATIONS EVEN AND UNLABORED. PT CO PAIN TO FEET AMEYA JOHNSON NOTIFIED AND NEW MEDICATION ORDER. PT STATES THAT HE IS PLEASED WITH HIS BATH AND IS VERY APPRICIATIVE. PT ENCOUARAGED TO CALL FOR HELP WHEN GETTING IN AND OUT OF BED. CALL LIGHT, URINAL AND OTHER PERSONAL ITEMS WITH INREACH. BED ALARM IS ON AND ACTIVE. WILL CONTINUE TO MONITOR
--- NOTE | 2020-03-28 03:15 | NUR ---
I have reviewed this patient and I concur with the Shift Assessment completed by the Licensed Practical Nurse today this shift.
[2020-03-28 04:31] LABS: BASOPHILS 0.3 % (0-2); EOSINOPHILS 4.2 % (0-7); HEMATOCRIT 32.4 % (42.0-54.0); HEMOGLOBIN 9.5 g/dL (13.5-17.5); IMMATURE GRANULOCYTES 0.4 % (0-5); LYMPHOCYTES 14.1 % (15-50); MCH 25.8 pg (26.0-34.0); MCHC 29.3 g/dL (31.0-37.0); MEAN PLATELET VOLUME 8.7 fL (7.4-10.4); MONOCYTES 8.2 % (2-11); NEUTROPHILS 72.8 % (40-80); PLATELET COUNT 278 10x3/uL (130-400); RBC 3.68 10x6/uL (4.20-6.10); RDW 14.8 % (11.5-14.5)
[2020-03-28 04:43] LABS: WBC 6.7 10x3/uL (4.8-10.8)
[2020-03-28 04:56] LABS: BILIRUBIN - TOTAL 0.78 mg/dL (0.2-1.3); CALCIUM 8.4 mg/dL (8.5-10.1); CARBON DIOXIDE 36.6 mmol/L (21.0-32.0); CREATININE - SERUM 2.9 mg/dL (0.6-1.3); POTASSIUM - SERUM 4.6 mmol/L (3.5-5.1); PROTEIN - SERUM 7.5 g/dL (6.4-8.2)
[2020-03-28 06:04] VITALS: BP 160/90
--- NOTE | 2020-03-28 07:12 | NUR ---
BLADDER SCANNED PT 34MLS IN BLADDER. NO SIGNS OF DISTRESS. CALL LIGHT WITH IN REACH.
--- NOTE | 2020-03-28 09:12 | MORECARE ---
CASE MANAGEMENT DISCHARGE SUMMARY PATIENT: CURLY CROWLEY UNIT: [id number] ADM DATE: 03/14/20 AGE: 64 : 53 SEX: M ROOM/BED: D.2205 AUTHOR: MATDOC PHYSICIAN: REFERRING PHYSICIAN: EDDA ARIAS MD DATE OF SERVICE: 03/28/20 Discharge Plan Patient Name: CURLY CROWLEY Facility: [facility]:[place] : 1955 Planned Disposition: Inpatient Rehab Anticipated Discharge Date: Discharge Date: Expected LOS: Initial Reviewer: [email or web address] Initial Review Date: 03/14/2020 Generated: 03/28/20 10:11 am Comments DCP- Discharge Planning Updated by [email or web address]: Jeanna Ding on 03/28/20 8:[address] Patient Name: CURLY CROWLEY Admission Status: Urgent Accout number: [id number] Admission Date: 03-14-2020 : 1955 Admission Diagnosis:CELLULITIS OF LEFT LOWER LIMB Attending: EDDA ARIAS Current LOS: 14 Anticipated DC Date: Planned Disposition: Inpatient Rehab Primary Insurance: [employer] TRUE BLUE PPO Discharge Planning Comments: CM MET WITH PATIENT ABOUT DC PLANNING/NEEDS. PATIENT IS REFUSING SNF, STATES WOULD DO HH. DL SIGNED FOR [facility]. IMM SIGNED. CM WILL FOLLOW AND ASSIST NEEDED. Order To Delivery Supervisor: Jeanna Ding DCP- Discharge Planning Updated by [email or web address]: Mildred Gauthier on 03/27/20 1:[address] PATIENT WAS DENIED INPATIENT REHAB, WILL NEED TO SPEAK WITH HIM ABOUT HIS SECOND CHOICE DCP- Discharge Planning Updated by [email or web address]: Mildred Gauthier on 03/19/20 1:[address] Patient Name: CURLY CROWLEY Admission Status: Urgent Accout number: [id number] Admission Date: 03-14-2020 : 1955 Admission Diagnosis:CELLULITIS OF LEFT LOWER LIMB Attending: EDDA ARIAS Current LOS: 5 Anticipated DC Date: Planned Disposition: Inpatient Rehab Primary Insurance: [employer] TRUE BLUE PPO Discharge Planning Comments: CM met with patient to complete initial dc planning assessment. CM educated patient on the CM role and verbal consent given by patient to complete assessment. Patient lives at home with his spouse where he was independent with his care. At discharge patient plans to return home and feels this is a safe discharge. CM discussed availability of home health, rehab services, and medical equipment. He has a walker that he uses and a lift chair. He thinks he will need rehab when he is discharged and would like to stay here for inpatient rehab. DL signed and placed in chart. If he needs home health he does not care what company as long as they take his insurance. Patient denied known discharge needs at this time. CM will continue to follow and will assist as needed with dc plans/needs. Order To Delivery Supervisor: Mildred Gauthier DCPIA - Discharge Planning Initial Assessment Updated by [id number]: Mildred Gauthier on 03/19/20 2:25 pm * Is the patient Alert and Oriented? Yes * How many steps to enter\exit or inside your home? * PCP HUGO * Pharmacy [facility] [address] * Preadmission Environment Home with Family * ADLs Independent * Equipment Walker * Other Equipment LIFT CHAIR * List name and contact numbers for known caregivers / representatives who currently or will assist patient after discharge: KIM () [phone] * Verbal permission to speak to the caregivers and representatives has been obtained from the patient. N/A * Community resources currently utilized None * Additional services required to return to the preadmission environment? Yes * Can the patient safely return to the preadmission environment? No * Has this patient been hospitalized within the prior 30 days at any hospital? No Coverage Notice Reviewer: [id number] - Mildred Gauthier Notice Issued Date-Time: 03/19/2020 14:20 Notice Type: IM Discharge Notice Notice Delivered To: Patient Relationship to Patient: Cradle Placer Name: Delivery Method: HAND - Hand Delivered Gabrielle Days: Prior Verbal Notification: Recipient Understood Notice: Yes Recipient Signature: Yes Med Rec Note Co-signed by Attending: Coverage Notice Comment: dl with inpatient rehab at [facility] Reviewer: [id number] Jass Ding Notice Issued Date-Time: 03/28/2020 9:09 Notice Type: IM Discharge Notice Notice Delivered To: Patient Relationship to Patient: Cradle Placer Name: Delivery Method: HAND - Hand Delivered Gabrielle Days: Prior Verbal Notification: Recipient Understood Notice: Yes Recipient Signature: Yes Med Rec Note Co-signed by Attending: Coverage Notice Comment: Reviewer: [id number] T Ding Notice Issued Date-Time: 03/28/2020 9:09 Notice Type: Patient Choice Letter Notice Delivered To: Patient Relationship to Patient: Cradle Placer Name: Delivery Method: HAND - Hand Delivered Gabrielle Days: Prior Verbal Notification: Recipient Understood Notice: Yes Recipient Signature: Yes Med Rec Note Co-signed by Attending: Coverage Notice Comment: GRA[facility]E [facility]CADO OR [facility] Last DP export: 03/27/20 1:57 pm Patient Name: CURLY CROWLEY Page [phone] at 0912 All edits/amendments must be made on the electronic document DICTATION DATE: 03/28/20910 SHRIMP TRAWLER CAPTAIN: GARY 03/28/20910 RPT#: [id number] DC DATE: STATUS: ADM IN [facility] [address] [place] [address] END OF REPORT
--- NOTE | 2020-03-28 09:41 | NUR ---
ADMINISTERED MORNING MEDICATION AT THIS TIME, DIFFICULTY. HUNG IV ANTIBIOTICS. PT IS SITTING IN BED SIDE CHAIR. PHYSICAL THERAPY WILL BE BACK TO HELP PT WALK AND AMBULATE. DENIES ANY NEEDS AT THIS TIME. COMFORTABLE IN CHAIR. DENIES ANY NEEDS AT THIS TIME. WILL CONTINUE TO MONITOR.
[2020-03-28 09:47] VITALS: BP 127/71
--- NOTE | 2020-03-28 10:21 | MORECARE ---
CASE MANAGEMENT DISCHARGE SUMMARY PATIENT: CURLY CROWLEY UNIT: [id number] ADM DATE: 03/14/20 AGE: 64 : 53 SEX: M ROOM/BED: D.2205 AUTHOR: MATDOC PHYSICIAN: REFERRING PHYSICIAN: EDDA ARIAS MD DATE OF SERVICE: 03/28/20 Discharge Plan Patient Name: CURLY CROWLEY Facility: [facility]:[place] : 1955 Planned Disposition: Inpatient Rehab Anticipated Discharge Date: Discharge Date: Expected LOS: Initial Reviewer: [id number] Initial Review Date: 03/14/2020 Generated: 03/28/20 11:21 am Comments DCP- Discharge Planning Updated by [id number]: Jeanna Ding on 03/28/20 8:[address] Patient Name: CURLY CROWLEY Admission Status: Urgent Accout number: [id number] Admission Date: 03-14-2020 : 1955 Admission Diagnosis:CELLULITIS OF LEFT LOWER LIMB Attending: EDDA ARIAS Current LOS: 14 Anticipated DC Date: Planned Disposition: Inpatient Rehab Primary Insurance: [employer] TRUE BLUE PPO Discharge Planning Comments: CM MET WITH PATIENT ABOUT DC PLANNING/NEEDS. PATIENT IS REFUSING SNF, STATES WOULD DO HH. DL SIGNED FOR [facility]. IMM SIGNED. CM WILL FOLLOW AND ASSIST NEEDED. Classified Ad Taker: Jeanna Ding DCP- Discharge Planning Updated by [id number]: Mildred Gauthier on 03/27/20 1:[address] PATIENT WAS DENIED INPATIENT REHAB, WILL NEED TO SPEAK WITH HIM ABOUT HIS SECOND CHOICE DCP- Discharge Planning Updated by [id number]: Mildred Gauthier on 03/19/20 1:[address] Patient Name: CURLY CROWLEY Admission Status: Urgent Accout number: [id number] Admission Date: 03-14-2020 : 1955 Admission Diagnosis:CELLULITIS OF LEFT LOWER LIMB Attending: EDDA ARIAS Current LOS: 5 Anticipated DC Date: Planned Disposition: Inpatient Rehab Primary Insurance: [employer] TRUE BLUE PPO Discharge Planning Comments: CM met with patient to complete initial dc planning assessment. CM educated patient on the CM role and verbal consent given by patient to complete assessment. Patient lives at home with his spouse where he was independent with his care. At discharge patient plans to return home and feels this is a safe discharge. CM discussed availability of home health, rehab services, and medical equipment. He has a walker that he uses and a lift chair. He thinks he will need rehab when he is discharged and would like to stay here for inpatient rehab. DL signed and placed in chart. If he needs home health he does not care what company as long as they take his insurance. Patient denied known discharge needs at this time. CM will continue to follow and will assist as needed with dc plans/needs. Classified Ad Taker: Mildred Gauthier DCPIA - Discharge Planning Initial Assessment Updated by [id number]: Mildred Gauthier on 03/19/20 2:25 pm * Is the patient Alert and Oriented? Yes * How many steps to enter\exit or inside your home? * PCP HUGO * Pharmacy [facility] [address] * Preadmission Environment Home with Family * ADLs Independent * Equipment Walker * Other Equipment LIFT CHAIR * List name and contact numbers for known caregivers / representatives who currently or will assist patient after discharge: KIM () [phone] * Verbal permission to speak to the caregivers and representatives has been obtained from the patient. N/A * Community resources currently utilized None * Additional services required to return to the preadmission environment? Yes * Can the patient safely return to the preadmission environment? No * Has this patient been hospitalized within the prior 30 days at any hospital? No External Providers External Provider: [facility] Next Contact Date: Service Request Date: Service Type: Resolution: Reviewer: Comments: Coverage Notice Reviewer: [id number] - Mildred Gauthier Notice Issued Date-Time: 03/19/2020 14:20 Notice Type: IM Discharge Notice Notice Delivered To: Patient Relationship to Patient: Home Energy Inspector Name: Delivery Method: HAND - Hand Delivered Gabrielle Days: Prior Verbal Notification: Recipient Understood Notice: Yes Recipient Signature: Yes Med Rec Note Co-signed by Attending: Coverage Notice Comment: dl with inpatient rehab at [facility] Reviewer: [id number] Jass Ding Notice Issued Date-Time: 03/28/2020 9:09 Notice Type: IM Discharge Notice Notice Delivered To: Patient Relationship to Patient: Home Energy Inspector Name: Delivery Method: HAND - Hand Delivered Gabrielle Days: Prior Verbal Notification: Recipient Understood Notice: Yes Recipient Signature: Yes Med Rec Note Co-signed by Attending: Coverage Notice Comment: Reviewer: [id number] Jass Ding Notice Issued Date-Time: 03/28/2020 9:09 Notice Type: Patient Choice Letter Notice Delivered To: Patient Relationship to Patient: Home Energy Inspector Name: Delivery Method: HAND - Hand Delivered Gabrielle Days: Prior Verbal Notification: Recipient Understood Notice: Yes Recipient Signature: Yes Med Rec Note Co-signed by Attending: Coverage Notice Comment: GRAEME MERCADO OR ANGE Last DP export: 03/28/20 8:12 am Patient Name: CURLY CROWLEY Page [id number] at 1021 All edits/amendments must be made on the electronic document DICTATION DATE: 03/28/20 1021 FRAME NAILER: GARY 03/28/20 1021 RPT#: [id number] DC DATE: STATUS: ADM IN [facility] [address] [place] [address] END OF REPORT
--- NOTE | 2020-03-28 10:29 | MORECARE ---
CASE MANAGEMENT DISCHARGE SUMMARY PATIENT: CURLY CROWLEY UNIT: [id number] ADM DATE: 03/14/20 AGE: 64 : 51 SEX: M ROOM/BED: D.2205 AUTHOR: MATDOC PHYSICIAN: REFERRING PHYSICIAN: EDDA ARIAS MD DATE OF SERVICE: 03/28/20 Discharge Plan Patient Name: CURLY CROWLEY Facility: [facility]:[place] : 1955 Planned Disposition: Inpatient Rehab Anticipated Discharge Date: Discharge Date: Expected LOS: Initial Reviewer: [email or web address] Initial Review Date: 03/14/2020 Generated: 03/28/20 11:29 am Comments DCP- Discharge Planning Updated by [email or web address]: Jeanna Ding on 03/28/20 9:[address] Patient Name: CURLY CROWLEY Admission Status: Urgent Accout number: [id number] Admission Date: 03-14-2020 : 1955 Admission Diagnosis:CELLULITIS OF LEFT LOWER LIMB Attending: EDDA ARIAS Current LOS: 14 Anticipated DC Date: Planned Disposition: Inpatient Rehab Primary Insurance: [employer] TRUE BLUE PPO Discharge Planning Comments: CM MET WITH PATIENT ABOUT DC PLANNING/NEEDS. PATIENT IS REFUSING SNF, STATES WOULD DO HH. DL SIGNED FOR [facility]. IMM SIGNED. CM WILL FOLLOW AND ASSIST NEEDED. Cloth Winder: Jeanna Ding Appended by Jeanna Ding on 03/28/2020 10:27 CDT: DOCUMENTS FAXED TO [facility] . DCP- Discharge Planning Updated by [id number]: Mildred Gauthier on 03/27/20 1:[address] PATIENT WAS DENIED INPATIENT REHAB, WILL NEED TO SPEAK WITH HIM ABOUT HIS SECOND CHOICE DCP- Discharge Planning Updated by [email or web address]: Mildred Gauthier on 03/19/20 1:[address] Patient Name: CURLY CROWLEY Admission Status: Urgent Accout number: [id number] Admission Date: 03-14-2020 : 1955 Admission Diagnosis:CELLULITIS OF LEFT LOWER LIMB Attending: EDDA ARIAS Current LOS: 5 Anticipated DC Date: Planned Disposition: Inpatient Rehab Primary Insurance: [employer] TRUE BLUE PPO Discharge Planning Comments: CM met with patient to complete initial dc planning assessment. CM educated patient on the CM role and verbal consent given by patient to complete assessment. Patient lives at home with his spouse where he was independent with his care. At discharge patient plans to return home and feels this is a safe discharge. CM discussed availability of home health, rehab services, and medical equipment. He has a walker that he uses and a lift chair. He thinks he will need rehab when he is discharged and would like to stay here for inpatient rehab. DL signed and placed in chart. If he needs home health he does not care what company as long as they take his insurance. Patient denied known discharge needs at this time. CM will continue to follow and will assist as needed with dc plans/needs. Cloth Winder: Mildred Gauthier DCPIA - Discharge Planning Initial Assessment Updated by [id number]: Mildred Gauthier on 03/19/20 2:25 pm * Is the patient Alert and Oriented? Yes * How many steps to enter\exit or inside your home? * PCP ARIAS * Pharmacy [facility] [address] * Preadmission Environment Home with Family * ADLs Independent * Equipment Walker * Other Equipment LIFT CHAIR * List name and contact numbers for known caregivers / representatives who currently or will assist patient after discharge: KIM () [phone] * Verbal permission to speak to the caregivers and representatives has been obtained from the patient. N/A * Community resources currently utilized None * Additional services required to return to the preadmission environment? Yes * Can the patient safely return to the preadmission environment? No * Has this patient been hospitalized within the prior 30 days at any hospital? No Coverage Notice Reviewer: [id number] Jass Ding Notice Issued Date-Time: 03/28/2020 9:09 Notice Type: Patient Choice Letter Notice Delivered To: Patient Relationship to Patient: Spinner Fixer Name: Delivery Method: HAND - Hand Delivered Gabrielle Days: Prior Verbal Notification: Recipient Understood Notice: Yes Recipient Signature: Yes Med Rec Note Co-signed by Attending: Coverage Notice Comment: GRAEME MERCADO OR ANGE Reviewer: [id number] Jass Ding Notice Issued Date-Time: 03/28/2020 9:09 Notice Type: IM Discharge Notice Notice Delivered To: Patient Relationship to Patient: Spinner Fixer Name: Delivery Method: HAND - Hand Delivered Gabrielle Days: Prior Verbal Notification: Recipient Understood Notice: Yes Recipient Signature: Yes Med Rec Note Co-signed by Attending: Coverage Notice Comment: Reviewer: [id number] - Mildred Gauthier Notice Issued Date-Time: 03/19/2020 14:20 Notice Type: IM Discharge Notice Notice Delivered To: Patient Relationship to Patient: Spinner Fixer Name: Delivery Method: HAND - Hand Delivered Gabrielle Days: Prior Verbal Notification: Recipient Understood Notice: Yes Recipient Signature: Yes Med Rec Note Co-signed by Attending: Coverage Notice Comment: dl with inpatient rehab at [facility] Last DP export: 03/28/20 9:21 am Patient Name: CURLY CROWLEY Page [id number] at 1029 All edits/amendments must be made on the electronic document DICTATION DATE: 03/28/20 1029 BOX TRUCK WASHER: GARY 03/28/20 1029 RPT#: [id number] DC DATE: STATUS: ADM IN [facility] [address] [place] [address] END OF REPORT
[2020-03-28] MEDS ORDERED: MONODOX100 MG PO (11:38)
[2020-03-28] MEDS ORDERED: KEFLEX500 MG PO (11:38)
--- NOTE | 2020-03-28 12:21 | NUR ---
ADMINISTERED MEDICATION AT THIS TIME. ASSESSED BLOOD SUGAR, 108. DOES NOT REQUIRE INSULIN COVERAGE PER SLIDING SCALE. CHANGED DRESSING TO LEFT LOWER LEG. PT RESTING COMFORTABLY UP RIGHT IN BED. DENIES ANY NEEDS AT THIS TIME. WILL CONTINUE TO MONITOR.
[2020-03-28 13:17] VITALS: BP 134/72
--- NOTE | 2020-03-28 14:36 | NUR ---
OT NOTE: PT COMPLETED SUPINE TO SIT WITH SBA. PT COMPLETED ADL MOB WITH RW WITH CGA. PT COMPLETED TOILETING TASKS WITH CGA. PT COMPLETED HAND WASHING AT SINK LEVEL WITH SBA. [phone] THANK YOU,VALERIO SAINI
--- NOTE | 2020-03-28 14:49 | NUR ---
YURI DAVISON DC LEFT CHEST TRIALYSIS. PRESSURE HELD FOR 5 MINUTES, COVERED WITH 2X2'S AND PRESSURE TAPE. PT IS READY TO BE TAKEN DOWNSTAIRS, FAMILY WAITING. BRANCH OPERATIONS SPECIALIST WILL ESCORT PT VIA WHEELCHAIR.
--- NOTE | 2020-03-28 14:53 | NUR ---
TRIALYSIS DISCONTINUED FROM LEFT CHEST WALL. SUTURES REMOVED, CATH REMOVED AND INTACT PRESSURE HELD FOR 7 MINUTES. NO S/S OF BLEEDING AT THIS TIME. PRESSURE DRESSING APPLIED TO SITE.
--- NOTE | 2020-03-28 14:55 | NUR ---
NAIL KEGGER TOOK PT VIA WHEELCHAIR TO EXIT.
--- NOTE | 2020-03-28 17:14 | MORECARE ---
CASE MANAGEMENT DISCHARGE SUMMARY PATIENT: CURLY CROWLEY UNIT: [id number] ADM DATE: 03/14/20 AGE: 64 : 51 SEX: M ROOM/BED: D.2205 AUTHOR: JAY RIVERO PHYSICIAN: REFERRING PHYSICIAN: EDDA ARIAS MD DATE OF SERVICE: 03/28/20 Discharge Plan Patient Name: CURLY CROWLEY Facility: [facility]:[place] : 1955 Planned Disposition: Inpatient Rehab Anticipated Discharge Date: Discharge Date: 03/28/2020 Expected LOS: Initial Reviewer: [id number] Initial Review Date: 03/14/2020 Generated: 03/28/20 6:13 pm Comments DCP- Discharge Planning Updated by [email or web address]: Mildred Gauthier on 03/28/20 4:[address] YAYO WITH [facility] CALLED AND STATED THAT SHE HAS SPOKEN WITH THE CLINICAL SAFETY SPECIALIST AND HE IS APPROVED FOR INPATIENT REHAB FOR 7 DAYS HER NUMBER IS [phone] EXT [phone] I CALLED ROGE AT INPATIENT REHAB AND TOLD HER THE ABOVE AND EXPLAINED TO HER THAT SHE NEEDED TO CALL HER AND THEY WILL VERIFY THE AUTH. SHE WILL LET BHAVANI CALL TOMORROW ROGE STATED THAT SHE TRIED TO GET A HOLD OF HER BUT DID NOT GET AN ANSWER DCP- Discharge Planning Updated by [email or web address]: Jeanna Ding on 03/28/20 9:[address] Patient Name: CURLY CROWLEY Admission Status: Urgent Accout number: [id number] Admission Date: 03-14-2020 : 1955 Admission Diagnosis:CELLULITIS OF LEFT LOWER LIMB Attending: EDDA ARIAS Current LOS: 14 Anticipated DC Date: Planned Disposition: Inpatient Rehab Primary Insurance: BLUE CROSS TRUE BLUE PPO Discharge Planning Comments: CM MET WITH PATIENT ABOUT DC PLANNING/NEEDS. PATIENT IS REFUSING SNF, STATES WOULD DO HH. DL SIGNED FOR [facility]. [facility]MM SIGNED. CM WILL FOLLOW AND ASSIST NEEDED. Banking Consultant: Jeanna Ding Appended by Jeanna Ding on 03/28/2020 10:27 CDT: DOCUMENTS FAXED TO [facility] . DCP- Discharge Planning Updated by [email or web address]: Mildred Gauthier on 5/5/20 1:[address] PATIENT WAS DENIED INPATIENT REHAB, WILL NEED TO SPEAK WITH HIM ABOUT HIS SECOND CHOICE DCP- Discharge Planning Updated by [email or web address]: Mildred Gauthier on 03/19/20 1:[address] Patient Name: CURLY CROWLEY Admission Status: Urgent Accout number: [id number] Admission Date: 03-14-2020 : 1955 Admission Diagnosis:CELLULITIS OF LEFT LOWER LIMB Attending: EDDA ARIAS Current LOS: 5 Anticipated DC Date: Planned Disposition: Inpatient Rehab Primary Insurance: [employer] TRUE BLUE PPO Discharge Planning Comments: CM met with patient to complete initial dc planning assessment. CM educated patient on the CM role and verbal consent given by patient to complete assessment. Patient lives at home with his spouse where he was independent with his care. At discharge patient plans to return home and feels this is a safe discharge. CM discussed availability of home health, rehab services, and medical equipment. He has a walker that he uses and a lift chair. He thinks he will need rehab when he is discharged and would like to stay here for inpatient rehab. DL signed and placed in chart. If he needs home health he does not care what company as long as they take his insurance. Patient denied known discharge needs at this time. CM will continue to follow and will assist as needed with dc plans/needs. Banking Consultant: Mildred Gauthier DCPIA - Discharge Planning Initial Assessment Updated by [id number]: Mildred Gauthier on 03/19/20 2:25 pm * Is the patient Alert and Oriented? Yes * How many steps to enter\exit or inside your home? * PCP HUGO * Pharmacy [facility] * Preadmission Environment Home with Family * ADLs Independent * Equipment Walker * Other Equipment LIFT CHAIR * List name and contact numbers for known caregivers / representatives who currently or will assist patient after discharge: KIM () [phone] * Verbal permission to speak to the caregivers and representatives has been obtained from the patient. N/A * Community resources currently utilized None * Additional services required to return to the preadmission environment? Yes * Can the patient safely return to the preadmission environment? No * Has this patient been hospitalized within the prior 30 days at any hospital? No Coverage Notice Reviewer: [email or web address] - Mildred Gauthier Notice Issued Date-Time: 03/19/2020 14:20 Notice Type: IM Discharge Notice Notice Delivered To: Patient Relationship to Patient: Induction Machine Operator Name: Delivery Method: HAND - Hand Delivered Gabrielle Days: Prior Verbal Notification: Recipient Understood Notice: Yes Recipient Signature: Yes Med Rec Note Co-signed by Attending: Coverage Notice Comment: dl with inpatient rehab at [facility] Reviewer: [id number] Jass Ding Notice Issued Date-Time: 03/28/2020 9:09 Notice Type: IM Discharge Notice Notice Delivered To: Patient Relationship to Patient: Induction Machine Operator Name: Delivery Method: HAND - Hand Delivered Gabrielle Days: Prior Verbal Notification: Recipient Understood Notice: Yes Recipient Signature: Yes Med Rec Note Co-signed by Attending: Coverage Notice Comment: Reviewer: [id number] Jass Ding Notice Issued Date-Time: 03/28/2020 9:09 Notice Type: Patient Choice Letter Notice Delivered To: Patient Relationship to Patient: Induction Machine Operator Name: Delivery Method: HAND - Hand Delivered Gabrielle Days: Prior Verbal Notification: Recipient Understood Notice: Yes Recipient Signature: Yes Med Rec Note Co-signed by Attending: Coverage Notice Comment: [facility] Last DP export: 03/28/20 9:30 am Patient Name: CURLY CROWLEY Page [phone] at 1714 All edits/amendments must be made on the electronic document DICTATION DATE: 03/28/201712 PAINT ROLLER COVERS SUPERVISOR: GARY 03/28/201712 RPT#: [id number] DC DATE:03/28/20 STATUS: DIS IN [place] [place] [address] END OF REPORT
--- NOTE | 2020-03-28 23:55 | MORECARE ---
CASE MANAGEMENT DISCHARGE SUMMARY PATIENT: CURLY CROWLEY UNIT: [id number] ADM DATE: 03/14/20 AGE: 64 : 53 SEX: M ROOM/BED: D.2205 AUTHOR: JAY RIVERO PHYSICIAN: REFERRING PHYSICIAN: EDDA ARIAS MD DATE OF SERVICE: 03/28/20 Discharge Plan Patient Name: CURLY CROWLEY Facility: [facility]:[place] : 1955 Planned Disposition: Inpatient Rehab Anticipated Discharge Date: Discharge Date: 03/28/2020 Expected LOS: Initial Reviewer: [id number] Initial Review Date: 03/14/2020 Generated: 03/29/20 12:54 am Comments DCP- Discharge Planning Updated by [email or web address]: Mildred Gauthier on 03/28/20 4:[address] YAYO WITH [facility] CALLED AND STATED THAT SHE HAS SPOKEN WITH THE ORE PUNCHER AND HE IS APPROVED FOR INPATIENT REHAB FOR 7 DAYS HER NUMBER IS [phone] EXT [id number] I CALLED ROGE AT INPATIENT REHAB AND TOLD HER THE ABOVE AND EXPLAINED TO HER THAT SHE NEEDED TO CALL HER AND THEY WILL VERIFY THE AUTH. SHE WILL LET BHAVANI CALL TOMORROW ROGE STATED THAT SHE TRIED TO GET A HOLD OF HER BUT DID NOT GET AN ANSWER DCP- Discharge Planning Updated by [id number]: Jeanna Ding on 03/28/20 9:[address] Patient Name: CURLY CROWLEY Admission Status: Urgent Accout number: [id number] Admission Date: 03-14-2020 : 1955 Admission Diagnosis:CELLULITIS OF LEFT LOWER LIMB Attending: EDDA ARIAS Current LOS: 14 Anticipated DC Date: Planned Disposition: Inpatient Rehab Primary Insurance: BLUE CROSS TRUE BLUE PPO Discharge Planning Comments: CM MET WITH PATIENT ABOUT DC PLANNING/NEEDS. PATIENT IS REFUSING SNF, STATES WOULD DO HH. DL SIGNED FOR [facility]. [facility] SIGNED. CM WILL FOLLOW AND ASSIST NEEDED. Mill Representative: Jeanna Ding Appended by Jeanna Ding on 03/28/2020 10:27 CDT: DOCUMENTS FAXED TO [facility] . DCP- Discharge Planning Updated by [email or web address]: Mildred Gauthier on 5/5/20 1:[address] PATIENT WAS DENIED INPATIENT REHAB, WILL NEED TO SPEAK WITH HIM ABOUT HIS SECOND CHOICE DCP- Discharge Planning Updated by [id number]: Mildred Gauthier on 03/19/20 1:[address] Patient Name: CURLY CROWLEY Admission Status: Urgent Accout number: [id number] Admission Date: 03-14-2020 : 1955 Admission Diagnosis:CELLULITIS OF LEFT LOWER LIMB Attending: EDDA ARIAS Current LOS: 5 Anticipated DC Date: Planned Disposition: Inpatient Rehab Primary Insurance: [employer] BLUE PPO Discharge Planning Comments: CM met with patient to complete initial dc planning assessment. CM educated patient on the CM role and verbal consent given by patient to complete assessment. Patient lives at home with his spouse where he was independent with his care. At discharge patient plans to return home and feels this is a safe discharge. CM discussed availability of home health, rehab services, and medical equipment. He has a walker that he uses and a lift chair. He thinks he will need rehab when he is discharged and would like to stay here for inpatient rehab. DL signed and placed in chart. If he needs home health he does not care what company as long as they take his insurance. Patient denied known discharge needs at this time. CM will continue to follow and will assist as needed with dc plans/needs. Mill Representative: Mildred Gauthier DCPIA - Discharge Planning Initial Assessment Updated by [email or web address]: Mildred Gauthier on 03/19/20 2:25 pm * Is the patient Alert and Oriented? Yes * How many steps to enter\exit or inside your home? * PCP [facility] * Pharmacy [facility] * Preadmission Environment Home with Family * ADLs Independent * Equipment Walker * Other Equipment LIFT CHAIR * List name and contact numbers for known caregivers / representatives who currently or will assist patient after discharge: KIM () [phone] * Verbal permission to speak to the caregivers and representatives has been obtained from the patient. N/A * Community resources currently utilized None * Additional services required to return to the preadmission environment? Yes * Can the patient safely return to the preadmission environment? No * Has this patient been hospitalized within the prior 30 days at any hospital? No Coverage Notice Reviewer: [id number] Jass Ding Notice Issued Date-Time: 03/28/2020 9:09 Notice Type: Patient Choice Letter Notice Delivered To: Patient Relationship to Patient: Equipment Operation Instructor Name: Delivery Method: HAND - Hand Delivered Gabrielle Days: Prior Verbal Notification: Recipient Understood Notice: Yes Recipient Signature: Yes Med Rec Note Co-signed by Attending: Coverage Notice Comment: [facility] Reviewer: [email or web address] Jass Ding Notice Issued Date-Time: 03/28/2020 9:09 Notice Type: IM Discharge Notice Notice Delivered To: Patient Relationship to Patient: Equipment Operation Instructor Name: Delivery Method: HAND - Hand Delivered Gabrielle Days: Prior Verbal Notification: Recipient Understood Notice: Yes Recipient Signature: Yes Med Rec Note Co-signed by Attending: Coverage Notice Comment: Reviewer: [email or web address] Jass Gauthier Notice Issued Date-Time: 03/19/2020 14:20 Notice Type: IM Discharge Notice Notice Delivered To: Patient Relationship to Patient: Equipment Operation Instructor Name: Delivery Method: HAND - Hand Delivered Gabrielle Days: Prior Verbal Notification: Recipient Understood Notice: Yes Recipient Signature: Yes Med Rec Note Co-signed by Attending: Coverage Notice Comment: dl with inpatient rehab at [facility] Last DP export: 03/28/20 4:14 pm Patient Name: CURLY CROWLEY Page [phone] at 2355 All edits/amendments must be made on the electronic document DICTATION DATE: 03/28/202353 GLUELINE WORKER: GARY 03/28/202353 RPT#: [id number] DC DATE:03/28/20 STATUS: DIS IN [facility] [address] [place] [address] END OF REPORT
== END 2020-03-28 14:55 | disposition home health service (06) | DRG 638 ==
LOC: D.SDCHOLD 15:58 → D.MS 15:58
PROVIDERS: Family Medicine Adult Medicine; Internal Medicine Nephrology; ADMIT Emergency Medicine; ATTEND Emergency Medicine
DX: E11.628 Type 2 diabetes mellitus with other skin complications (principal); L03.116 Cellulitis of left lower limb; Z68.41 Body mass index [BMI] 40.0-44.9, adult; E87.1 Hypo-osmolality and hyponatremia; D64.9 Anemia, unspecified; E11.51 Type 2 diabetes mellitus with diabetic peripheral angiopathy without gangrene; E66.01 Morbid (severe) obesity due to excess calories; E78.5 Hyperlipidemia, unspecified; G89.29 Other chronic pain; M54.9 Dorsalgia, unspecified; N17.0 Acute kidney failure with tubular necrosis

== ENCOUNTER 2020-04-05 11:16 | Inpatient (IN) | payer MEDICARE ==
[~2020-04-05] VITALS: Ht 177.8 cm; Wt 111.1 kg
[~2020-04-05 11:16] MED LIST changes: +KEFLEX500 MG PO; +MONODOX100 MG PO
[2020-04-05 11:40] VITALS: BP 111/68
--- NOTE | 2020-04-05 11:40 | NUR ---
ABG'S DRAWN PER RT. O2 DECREASED TO 1 LPM PNC PER RESULTS
[2020-04-05 11:59] LABS: BASOPHILS 0.3 % (0-2); EOSINOPHILS 0.3 % (0-7); HEMATOCRIT 32.3 % (42.0-54.0); HEMOGLOBIN 9.5 g/dL (13.5-17.5); IMMATURE GRANULOCYTES 0.3 % (0-5); LYMPHOCYTES 14.8 % (15-50); MCHC 29.4 g/dL (31.0-37.0); MCV 88.3 fL (80.0-100.0); MEAN PLATELET VOLUME 9.4 fL (7.4-10.4); MONOCYTES 6.1 % (2-11); NEUTROPHILS 78.2 % (40-80); PLATELET COUNT 224 10x3/uL (130-400); RBC 3.66 10x6/uL (4.20-6.10); RDW 14.9 % (11.5-14.5); WBC 6.6 10x3/uL (4.8-10.8)
[2020-04-05 12:06] LABS: APTT 37.4 SECONDS (22.8-39.4)
[2020-04-05 12:22] LABS: INR 1.25 (0.85-1.17); PROTIME 15.6 SECONDS (11.6-15.0)
[2020-04-05 12:29] LABS: ALBUMIN 2.8 g/dL (3.4-5.0); ALKALINE PHOSPHATASE 226 U/L (30-120); ALT (SGPT) 176 U/L (10-68); BILIRUBIN - TOTAL 0.53 mg/dL (0.2-1.3); CALC OSMOLALITY 290 mosm/kg (275-300); CALCIUM 8.5 mg/dL (8.5-10.1); CHLORIDE - SERUM 96 mmol/L (98-107); CKMB 2.8 U/L (0.0-3.6); CREATINE KINASE 41 UL (21-232); CREATININE - SERUM 4.4 mg/dL (0.6-1.3); GLUCOSE 97 mg/dL (74-106); MAGNESIUM - SERUM 2.5 mg/dL (1.8-2.4); PROTEIN - SERUM 7.7 g/dL (6.4-8.2); SODIUM 131 mmol/L (136-145); UREA NITROGEN 91 mg/dL (7-18); eGFR NON AFRICAN AMERICAN 14 mL/min (90-120)
[2020-04-05 12:33] LABS: POTASSIUM - SERUM 6.4 mmol/L (3.5-5.1)
[2020-04-05 12:34] LABS: TROPONIN-I 0.171 ng/mL (0.000-0.060)
--- NOTE | 2020-04-05 12:34 | NUR ---
CRITICAL LABS: K+ 6.4 TROPONIN 0.171
[2020-04-05 12:51] VITALS: BP 101/60
--- NOTE | 2020-04-05 12:52 | NUR ---
URINE SPEC COLLECTED, LABELED AT BS AND SENT TO LAB
[2020-04-05 13:07] LABS: UDS - AMPHET NEGATIVE QUAL (NEGATIVE); UDS - BARB NEGATIVE QUAL (NEGATIVE); UDS - BENZO NEGATIVE QUAL (NEGATIVE); UDS - COCAINE NEGATIVE QUAL (NEGATIVE); UDS - OPIATE NEGATIVE QUAL (NEGATIVE); UDS - PCP NEGATIVE QUAL (NEGATIVE); UDS - THC NEGATIVE QUAL (NEGATIVE)
[2020-04-05 13:21] LABS: BILIRUBIN NEGATIVE (NEGATIVE); EPITHELIAL CELLS 0-5 /hpf (0-5); GLUCOSE NEGATIVE (NEGATIVE); KETONE SMALL mg/dL (NEGATIVE); NITRITE NEGATIVE (NEGATIVE); RED CELLS - URINE OCC /hpf (0-5); SPECIFIC GRAVITY 1.025 (1.005-1.020); UROBILINOGEN NORMAL (NORMAL); WHITE CELLS - URINE 0-5 /hpf (NEGATIVE)
[2020-04-05 13:22] LABS: BACTERIA MODERATE /hpf (NEGATIVE); CALCIUM OXALATE CRYSTALS OCC /hpf (NONE SEEN)
[2020-04-05 14:44] VITALS: BP 120/69
--- NOTE | 2020-04-05 15:00 | NUR ---
REPORT CALLED TO YURI NESS
--- NOTE | 2020-04-05 15:20 | NUR ---
TRANSPORTED/ADMITTED TO ROOM #2104, CONDITION STABLE. VANCOMYCIN 1.5 GM INFUSING @ 137 ML/HR
--- NOTE | 2020-04-05 15:40 | NUR ---
LEFT LEG HAS A WOUND THAT IS SCABBED ON MEDIAL CALF. BOTH LOWER LEGS ARE DRY, PEELING AND FLAKY. REDNESS AND WARMTH IS NOTED LEFT LEG FROM ANKLE TO GROIN. DR. JOHNSON HAS SEEN HIM IN THE PAST FOR TREATMENT OF HIS LEGS.
[2020-04-05 16:34] VITALS: BP 114/61
[2020-04-05 16:48] VITALS: BP 114/61; BMI 38.8
--- NOTE | 2020-04-05 19:11 | NUR ---
AT REST WITH EYES CLOSED BED LOW AND LOCKED RESP EVEN AND UNLABORED
--- NOTE | 2020-04-05 19:13 | NUR ---
ORDERS NOTED FOR TELEMETRY NONE AVAILABLE NONE TO COME OFF REFUSES SCD
[2020-04-05 20:00] VITALS: BP 106/66
--- NOTE | 2020-04-05 21:51 | NUR ---
HEARD NOUISE FROM ROOM AND FOUND PT IN [place] PT IS CONFIUSED BUT DENIES PAIN ABLE TO EXAMINE AND THEN STAND TO FEET ABULATED BACK TO BED NO SIGNS OF HEAD TRAUMA PT TO BED AND HS AND MD NOTIFIED
--- NOTE | 2020-04-05 22:15 | NUR ---
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
--- NOTE | 2020-04-05 22:50 | NUR ---
PT NOW CO PAIN IN RT HIP FEMER AREA CALLED AND ORDERS RECIEVED
[2020-04-06] VITALS: BP 118/68
--- NOTE | 2020-04-06 03:40 | NUR ---
FOUND IV TO LEFT AC TO BE REMOVED CATH INTACT AND RESTARTED WITH 20 GAUGE TO RT FA PT REACHED OVER AND REMOVED IT BEFORE I COULD EXIT ROOM AND SAID I WILL KEEP TAKING THOSE OUT
[2020-04-06 04:00] VITALS: BP 113/62
[2020-04-06 06:16] LABS: BASOPHILS 0.9 % (0-2); EOSINOPHILS 2.5 % (0-7); HEMATOCRIT 31.4 % (42.0-54.0); HEMOGLOBIN 9.5 g/dL (13.5-17.5); IMMATURE GRANULOCYTES 0.6 % (0-5); LYMPHOCYTES 12.2 % (15-50); MCH 26.1 pg (26.0-34.0); MCHC 30.3 g/dL (31.0-37.0); MEAN PLATELET VOLUME 9.3 fL (7.4-10.4); MONOCYTES 9.3 % (2-11); NEUTROPHILS 74.5 % (40-80); PLATELET COUNT 244 10x3/uL (130-400); RBC 3.64 10x6/uL (4.20-6.10); RDW 14.7 % (11.5-14.5); WBC 6.9 10x3/uL (4.8-10.8)
[2020-04-06 06:18] LABS: MCV 86.3 fL (80.0-100.0)
[2020-04-06 06:33] LABS: ALBUMIN 2.8 g/dL (3.4-5.0); ANION GAP 9.7 mmol/L (8-16); BILIRUBIN - TOTAL 0.46 mg/dL (0.2-1.3); CALCIUM 8.2 mg/dL (8.5-10.1); CARBON DIOXIDE 30.9 mmol/L (21.0-32.0); CREATININE - SERUM 3.5 mg/dL (0.6-1.3); MAGNESIUM - SERUM 2.3 mg/dL (1.8-2.4); POTASSIUM - SERUM 5.6 mmol/L (3.5-5.1); PROTEIN - SERUM 7.6 g/dL (6.4-8.2)
--- NOTE | 2020-04-06 07:30 | NUR ---
UPON ENTERING ROOM, PT LAYING SUPINE. PULLED UP IN BED. PT STATES HE " FEELS BETTER". ALERT AND ORIENTED TO SELF. WHEN ASKED IF HE WOULD ALLOW ME TO PLACE IV IN HE STATED HE WOULD. CALL LIGHT WITHIN REACH. BED IN LOWEST POSITION. BED ALARM IN PLACE AND FUNCTIONING PROPERLY. IV SITED TO RIGHT FOREARM, INFUSING ABX. WILL CONTINUE TO MONITOR.
[2020-04-06 08:24] VITALS: BP 123/71
--- NOTE | 2020-04-06 08:30 | NUR ---
PT SITTING UP, EATING BREAKFAST. ALERT AND ORIENTED TO SELF AND TIME. CALL LIGHT WITHIN REACH. BED IN LOWEST POSITION. DENIES NEEDS OR PAIN AT THIS TIME. WILL CONTINUE TO MONITOR.
[2020-04-06 10:44] VITALS: BMI 38.4
[2020-04-06 12:34] VITALS: BP 118/63
--- NOTE | 2020-04-06 13:41 | NUR ---
I have reviewed this patient and I concur with the Shift Assessment completed by the Licensed Practical Nurse today this shift.
[2020-04-06 16:22] VITALS: BP 86/59
--- NOTE | 2020-04-06 16:53 | NUR ---
OT NOTE: PT COMPLETED FACE AND HAND HYGIENE TASKS WITH SET UP. PT BED MOB AND POSITIONING WITH SBA USING SIDE RAILS. [phone] THANK YOU, VALERIO SAINI
--- NOTE | 2020-04-06 19:00 | NUR ---
REPORT RECEIVED. BEDSIDE SHIFT REPORT COMPLETE. PT RESTING IN BED, LETHARGIC BUT KEEPS TRYING TO PULL OFF HIS O2. PT SPO2 DECREASES TO THE LOW 60S WHEN NOT ON. PUT PT BACK ON O2 MULTIPLE TIMES. NO IMMEDIATE S/SX OF DISTRESS OBSERVED. CALL LIGHT IN REACH. BED ALARM ON. WILL CPOC.
[2020-04-06 20:30] VITALS: BP 114/48
--- NOTE | 2020-04-07 02:30 | NUR ---
PT HAS BECOME MORE AGGRESIVE DURING THE NIGHT. ALERT TO NAME ONLY. WHEN ATTEMPTING TO PLACE PT BACK ON O2 HE GRABBED THIS WRITERS ARM AGGRESIVELY. PT DOES NOT SEEM TO BE AWARE OF HIS ACTIONS. WILL STEVEN.
[2020-04-07 04:56] LABS: BASOPHILS 1.4 % (0-2); EOSINOPHILS 3.9 % (0-7); HEMATOCRIT 32.9 % (42.0-54.0); HEMOGLOBIN 9.3 g/dL (13.5-17.5); IMMATURE GRANULOCYTES 0.4 % (0-5); LYMPHOCYTES 18.3 % (15-50); MCH 25.3 pg (26.0-34.0); MCHC 28.3 g/dL (31.0-37.0); MEAN PLATELET VOLUME 9.3 fL (7.4-10.4); MONOCYTES 10.9 % (2-11); NEUTROPHILS 65.1 % (40-80); PLATELET COUNT 255 10x3/uL (130-400); RBC 3.68 10x6/uL (4.20-6.10); WBC 5.2 10x3/uL (4.8-10.8)
[2020-04-07 05:02] LABS: MCV 89.4 fL (80.0-100.0)
[2020-04-07 05:32] LABS: ALBUMIN 2.5 g/dL (3.4-5.0); ANION GAP 8.1 mmol/L (8-16); BILIRUBIN - TOTAL 0.46 mg/dL (0.2-1.3); CALCIUM 8.4 mg/dL (8.5-10.1); CARBON DIOXIDE 32.3 mmol/L (21.0-32.0); MAGNESIUM - SERUM 2.5 mg/dL (1.8-2.4); POTASSIUM - SERUM 5.4 mmol/L (3.5-5.1); PROTEIN - SERUM 7.8 g/dL (6.4-8.2); VANCOMYCIN - RANDOM 22.4 ug/mL (10.0-20.0)
--- NOTE | 2020-04-07 07:30 | NUR ---
PT SITTING UP IN BED, SOB ON 5L NC. REPOSITIONED IN BED TO COMFORT. PT URINATED IN BED. LINENS CHANGED, BATH RECIEVED. GOWN CHANGED. DENIES NEEDS OR PAIN AT THIS TIME. CALL LIGHT WITHIN REACH. BED IN LOWEST POSITION. ORIENTED TO SELF ONLY. BED ALARM ON AND FUNCTIONING PROPERLY. WILL CONTINUE TO MONITOR.
[2020-04-07 09:47] VITALS: BP 104/68
[2020-04-07 13:10] VITALS: BP 100/66
--- NOTE | 2020-04-07 15:56 | NUR ---
VOID X 1. LINENS AND GOWN CHANGED. REPOSITIONED TO COMFORT. CALL LIGHT WITHIN REACH. BED IN LOWEST POSITION. WILL CONTINUE TO MONITOR.
[2020-04-07 17:59] VITALS: BP 108/58
--- NOTE | 2020-04-07 19:00 | NUR ---
BEDSIDE REPORT RECEIVED, PT CARE ASSUMED. WROTE NAME ON BOARD AND INTRODUCED SELF. PT LYING IN BED, AAOX2, REORIENTED TO PLACE AND SITUATION. DENIES ANY NEEDS AT THIS TIME. BED IN LOWEST, SR X3, CALL LIGHT AND URINAL WITHIN REACH. BED ALARM ON AND FUNCTIONING. WILL CTM.
[2020-04-07 20:30] VITALS: BP 122/69
--- NOTE | 2020-04-08 02:30 | NUR ---
PIV FOUND IN FLOOR, NO S/S OF BLEEDING AT SITE, CATHETER TIP INTACT. PT DENIES KNOWING WHAT HAPPENED TO HIS IV. FOUND NC IN FLOOR, 80% O2 SAT, PLACED BACK ON PT AT 4L. O2 SAT 95%. DISORIENTED TO PLACE AND SITUATION, REORIENTED. REFUSING TO ALLOW PIV RESITE AT THIS TIME. DENIES ANY NEEDS, BED IN LOWEST, SRX3, CALL LIGHT AND URINAL WITHIN REACH. BED ALARM ON AND FUNCTIONING. WILL CTM.
[2020-04-08 04:25] VITALS: BP 138/86
[2020-04-08 05:01] LABS: BASOPHILS 0.6 % (0-2); EOSINOPHILS 7.8 % (0-7); HEMATOCRIT 32.8 % (42.0-54.0); HEMOGLOBIN 9.3 g/dL (13.5-17.5); IMMATURE GRANULOCYTES 0.3 % (0-5); LYMPHOCYTES 13.3 % (15-50); MCH 25.4 pg (26.0-34.0); MCHC 28.4 g/dL (31.0-37.0); MCV 89.6 fL (80.0-100.0); MEAN PLATELET VOLUME 9.3 fL (7.4-10.4); MONOCYTES 12.5 % (2-11); NEUTROPHILS 65.5 % (40-80); PLATELET COUNT 272 10x3/uL (130-400); RBC 3.66 10x6/uL (4.20-6.10); RDW 14.9 % (11.5-14.5); WBC 6.4 10x3/uL (4.8-10.8)
[2020-04-08 05:24] LABS: ALBUMIN 2.6 g/dL (3.4-5.0); ANION GAP 7.4 mmol/L (8-16); BILIRUBIN - TOTAL 0.54 mg/dL (0.2-1.3); CALCIUM 8.5 mg/dL (8.5-10.1); CARBON DIOXIDE 36.6 mmol/L (21.0-32.0); CREATININE - SERUM 2.4 mg/dL (0.6-1.3); MAGNESIUM - SERUM 2.2 mg/dL (1.8-2.4); PROTEIN - SERUM 7.8 g/dL (6.4-8.2); VANCOMYCIN - RANDOM 21.1 ug/mL (10.0-20.0)
--- NOTE | 2020-04-08 07:39 | NUR ---
PT SITTING UP IN BED. ORIENTED TO SELF ONLY. REPOSITIONED NC BACK ONTO PT. INSTRUCTED TO KEEP IT ON. CALL LIGHT WITHIN REACH. DENIES FURTHER NEEDS OR PAIN AT THIS TIME. BED ALARM ON AND FUNCTIONING PROPERLY. BED IN LOWEST POSITION. WILL CONTINUE TO MONITOR.
--- NOTE | 2020-04-08 08:01 | NUR ---
UPON WALKING IN, PT WAS SITTING UP ON SIDE OF BED. ASSISTED TO A CHAIR AND CHAIR ALARM IN PLACE AND FUNCTIONING PROPERLY. CALL LIGHT WITHIN REACH. WILL CONTINUE TO MONITOR.
--- NOTE | 2020-04-08 08:35 | NUR ---
ATTEMPTED X2 TO START IV. PT STARTED GETTING AGGITATED AND YELLING, STATING "WHY THE HELL ARE YOU DOING THAT TO ME?" REORIENTED PT AND EXPLAINED THE PROCEDURE 3 TIMES. PT IS STILL AGGITATED. WILL COME BACK AND TRY AGAIN.
[2020-04-08 09:24] VITALS: BP 161/96
[2020-04-08 12:10] VITALS: BP 157/82
--- NOTE | 2020-04-08 14:59 | NUR ---
I have reviewed this patient and I concur with the Shift Assessment completed by the Licensed Practical Nurse today this shift.
--- NOTE | 2020-04-08 16:45 | NUR ---
SPOKE WITH CRISTI AND UPDATED ON POC AFTER RECIEVING CODE. TRANSFERED CALL IN TO ROOM. PT SPOKE WITH DAUGHTER FOR APPROX. 10 MINUTES AND AFTER HANGING UP BECAME VERY AGGITATED AND STATED HE MISSED HIS AND HE KNOWS SHE IS HERE. PT REORIENTED. RECIEVED POPCICLE UPON REQUEST. AND ASSISTED WITH DINNER TRY. AFTER DINNER PT STARTED YELLING HE "WANTED EVERYONE TO BLEED". ATTEMPTED TO CALM PT WITH NO SUCCESS. SPOKE WITH AMEYA BORRERO. RECIEVED ORDERS FOR ATIVAN. ATIVAN RECIEVED PER ORDER. WILL CONTINUE TO MONITOR.
[2020-04-08 18:11] VITALS: BP 181/106
[2020-04-08 20:00] VITALS: BP 146/89
--- NOTE | 2020-04-08 20:03 | NUR ---
CHAIR ALARM GOING OFF, PT GETTING UP OUT OF THE CHAIR STATING ANGRILY "I'M LEAVING, I'M NOT STAYING HERE." ATTEMTPED TO ENTER ANOTHER PT'S ROOM, ATTEMPTED TO REORIENT X3, PT FINALLY AGREED TO GO BACK INTO HIS ROOM. STATES, "I MAY JUST STAY THE NIGHT HERE." MARIA ISABEL PRN ADMINISTERED, PER ORDER. FOUND IN PIV SITTING ON BEDSIDE TABLE, CATHETER TIP INTACT. NO S/S OF BLEEDING TO L FA SITE. REFUSING RESITE AT THIS TIME. PT SITTING UP IN CHAIR, URINAL AND CALL LIGHT WITHIN REACH. INSTRUCTED PT TO USE CALL LIGHT FOR ASSISTANCE. CHAIR ALARM ON AND FUNCITONING PROPERLY. WILL CTM.
--- NOTE | 2020-04-08 20:40 | NUR ---
ASSISTED PT BACK TO BED, POSITIONED FOR COMFORT. PLACED NC BACK ON PT AT 4L. DENIES ANY NEEDS AT THIS TIME. BED IN LOWEST, SR X3, CALL LIGHT AND URINAL WITHIN REACH. BED ALARM ON AND FUNCTIONING. WILL CTM.
--- NOTE | 2020-04-08 21:10 | NUR ---
PT BECOMING MORE AGITATED AND AGGRESSIVE WITH STAFF. CALLIE BORRERO, POLE INCISOR OPERATOR, REGARDING STATUS. RECEIVED TELEPHONE ORDERS FOR NING ARTIS AND DR. SOLIS CONSULT.
--- NOTE | 2020-04-08 22:16 | NUR ---
ATTEMPTED TO CALL TO UPDATE ON PT'S STATUS. NO ANSWER.
--- NOTE | 2020-04-09 | NUR ---
RESTRAINT EVAL COMPLETE, PER HOSPITAL POLICY. OFFERED WATER, REFUSED. OFFERED URINAL, REFUSED. NOTED PT HAD VOIDED IN THE BED, CLEANED UP, NEW LINENS AND GOWN PROVIDED. ATTEMPTED TO OBTAIN VS WITH FISHER CLAM, PT UNCOOPERATIVE AND CUSSING AT STAFF. ATTEMPTED TO REORIENT TO PLACE, TIME, SITUATION, UNSUCCESSFUL. CALLING OUT FOR "GONZÁLEZ TO GET IN HERE."
--- NOTE | 2020-04-09 04:00 | NUR ---
PT AA&OX1, ATTEMPTED TO REORIENT TO PLACE, TIME, SITUATION UNSUCCESSFULLY. RESTRAINT EVAL COMPLETE, RELEASE COMPLETE. ATTEMPTED VS WITH AMERICAN HISTORY PROFESSOR, PT UNCOOPERATIVE. OFFERED DRINK, SNACK, AND URINAL, PT REFUSED. VOID NOTED IN BED, CLEANED UP, GOWN AND LINENS CHANGED.
[2020-04-09 09:46] VITALS: BP 142/82
--- NOTE | 2020-04-09 11:07 | NUR ---
PT IN NING BED.PROVIDED DRY GOWN AND SHEETS AND BLANKET. MEDS GIVEN PER MAR WITH ASSISTANCE FROM CONSULTANT NURSE. PT VERBALLY AGGRESIVE STATING THAT WE ARE ALL AGIANST HIM AND HE WILL KILL US ALL
[2020-04-09 11:51] VITALS: BP 164/98
--- NOTE | 2020-04-09 12:00 | NUR ---
NO CHANGES IN LEGS. BOTH LOWER LEGS ARE DRY, PEELING AND FLAKING. SCABBED AREA NOTED ON LEFT MEDIAL CALF. WOUND CARE CONTINUES MONITORING.
--- NOTE | 2020-04-09 12:16 | NUR ---
Nutrition Follow-up: Pt confused. Staff helping pt set up breakfast tray at time of visit this AM. Diet: Renal ADA No new wt; last wt: 268# (04/06) Last BM: 04/07 per chart Labs reviewed Meds noted: Pepcid, Humalog, Veltassa, Protonix -Encourage PO intake and honor food preferences within diet restrictions. -Monitor wt; noted daily wts ordered. -RD following.
--- NOTE | 2020-04-09 15:37 | NUR ---
OT NOTE: PT IS CONFUSED. PT REQUIRED REDIRECTION WITH MOD VERBAL CUES. PT COMPLETED BED MOB TASKS WITH MIN A FOR INCREASED SAFETY. [phone] THANK YOU,VALERIO SAINI
[2020-04-09 17:02] VITALS: BP 166/86
--- NOTE | 2020-04-09 20:45 | NUR ---
PT CONFUSED, WOULD NOT LET THE SENIOR TAX ANALYST GET VITALS AND WOULD NOT LET ME CHECK HIS BLOOD SUGAR. HE TOOK HIS GOWN OFF. WOULD NOT LET US PUT IT BACK ON. KEPT SAYING LET ME OUT. HE DID TAKE HIS GEODON AND ATIVAN TABLETS WHOLE IN APPLE SAUCE. ATTEMPTED TO REORIENT HIM. HE WOULD SWING HIS ARMS AND PUSH ON US WHEN WE TRIED TO GET THE BLOOD PRESSURE CUFF ON. BED IS LOW. WILL CONTINUE TO MONITOR.
[2020-04-10] VITALS: BP 166/107
--- NOTE | 2020-04-10 01:22 | NUR ---
PT HAS URINATED AND HAD A BOWEL MOVEMENT. IT IS ALL OVER HIM. HE IS RESTING CALMLY AT THIS TIME. THE RESEARCH AND DEVELOPMENT RESEARCHER AND I WERE ABLE TO GET HIM CLEANED UP AND WE COVERED HIM WITH NEW LINENS. VSS. BED LOW.
[2020-04-10 04:00] VITALS: BP 190/100
[2020-04-10 05:44] LABS: BASOPHILS 0.5 % (0-2); EOSINOPHILS 8.4 % (0-7); HEMATOCRIT 38.1 % (42.0-54.0); HEMOGLOBIN 11.1 g/dL (13.5-17.5); IMMATURE GRANULOCYTES 0.2 % (0-5); LYMPHOCYTES 18.9 % (15-50); MCH 25.9 pg (26.0-34.0); MCHC 29.1 g/dL (31.0-37.0); MEAN PLATELET VOLUME 9.2 fL (7.4-10.4); MONOCYTES 8.5 % (2-11); NEUTROPHILS 63.5 % (40-80); PLATELET COUNT 251 10x3/uL (130-400); RBC 4.28 10x6/uL (4.20-6.10); RDW 15.4 % (11.5-14.5); WBC 5.6 10x3/uL (4.8-10.8)
[2020-04-10 06:07] VITALS: BP 168/87
[2020-04-10 06:25] LABS: ANION GAP 8.9 mmol/L (8-16); BILIRUBIN - TOTAL 1.3 mg/dL (0.2-1.3); CARBON DIOXIDE 37.2 mmol/L (21.0-32.0); CREATININE - SERUM 1.5 mg/dL (0.6-1.3); MAGNESIUM - SERUM 1.8 mg/dL (1.8-2.4); POTASSIUM - SERUM 4.1 mmol/L (3.5-5.1); PROTEIN - SERUM 7.8 g/dL (6.4-8.2); VANCOMYCIN - RANDOM 7.1 ug/mL (10.0-20.0)
--- NOTE | 2020-04-10 07:20 | NUR ---
RECIEVE REPORT. RESTING IN BED WITH EYES CLOSED. O2 @ 89% REFUSE OXYGEN. NING BED ZIPPED UP. CONTINUE PLAN OF CARE AND SAFETY PRECAUTIONS.
[2020-04-10 07:52] VITALS: BP 160/85
--- NOTE | 2020-04-10 10:38 | NUR ---
ALERT AND ORIENTED TO PERSON AND YEAR. BED BATH AND LINEN CHANGE COMPLETE. PHYSICAL THERAPY ASSIST OOB TO STANDING POSITION. CONTINUE PLAN OF CARE AND SAFETY PRECAUTIONS.
[2020-04-10 11:36] VITALS: BP 154/90
--- NOTE | 2020-04-10 13:18 | CN ---
PATIENT NAME:CURLY CROWLEY MEDICAL RECORD: [id number] : 51 LOCATION:. D.2104 ADMIT DATE: 04/05/20 ACCOUNT: [id number] CONSULTING PHYSICIAN: LAVERNE SOLIS MD REFERRING PHYSICIAN: CLAYTON FOWLER MD DATE OF CONSULTATION: 04/09/2020 PSYCHIATRIC CONSULTATION IDENTIFYING DATA: The patient is 64 years old and he was admitted to the hospital 4 days ago secondary to acute mental status changes along with an acute kidney injury and cellulitis. CHIEF COMPLAINT: Confusion. HISTORY OF PRESENT GENERAL: The patient is in a Jhony bed naked. He is rambling and incoherent. I spoke with his nurse, who says he is completely unmanageable. He would not cooperate and is pulling out his IV every time it is started. He has a history of obesity, chronic back pain, peptic ulcer disease, diabetes, edema, hypertension and hyperlipidemia. He is not able to provide much in the way of useful information. Much of what he says is contradictory and illogical. He clearly is quite confused. He strongly denies drug or alcohol abuse, which is high and my differential. His vital signs are stable. His labs do not have abnormalities that would readily identify underlying cause for his condition. Curiously, he was much more alert, cooperative and interactive when he first came to the hospital. ASSESSMENT: Delirium, factors and reasons unknown. PLAN: The patient is going to be treated supportively with antipsychotic and sedative medications. He may well need to be transferred to the behavioral unit for ongoing management and that is certainly possible and if he does not improve in the next day or two behaviorally. Despite his denials regarding substance abuse, I strongly suspect that this may be a withdrawal delirium, either from narcotics and/or sedatives or alcohol. TRANSINT:[id number] Voice Confirmation ID: [id number] DOCUMENT ID: [id number] LAVERNE SOLIS MD at 1318 CC: [id number] DICTATION DATE: 04/09/20 1513 STATISTICAL ASSISTANT: 04/09/20 1625 ADM IN [place] [id number] [place] [address]
--- NOTE | 2020-04-10 14:00 | NUR ---
OT NOTE: PT DOING BETTER TODAY. LESS CONFUSION AND MORE ATTENTIVE TODAY. PT ALERT TO NAME AND PLACE.. STATES THAT HE WAS "OUT OF IT " FOR A WHILE.. ABLE TO PERFORM BED MOB WITH MIN ASSIST FROM NING BED; GOOD STATIC SITTING BALANCE; FAIR STANDING BALANCE; PT INCONT OF URINE WITH ATTEMPT TO STAND. REQIRED MAX ASSIST TO CLEAN FEET AND DOFF/CLIFFODR SOCKS; MIN ASSIST WITH GOWN; PT ABLE TO WASH HANDS AND FACE WITH CLOTH AND SETUP; TRANSFERS WITH MIN ASSIST AND USE OF WALKER; ABLE TO AMB A FEW FT IN ROOM WITH MIN ASSIST, O2 AND USE OF WALKER. ANNA LOUIS, OTR/L [phone]
[2020-04-10 14:48] VITALS: BP 133/82
--- NOTE | 2020-04-10 16:54 | NUR ---
RESTING IN NING BED WITH EYES CLOSED. AROUSES EASILY. NO SIGNS OF DISTRESS. CONTINUE PLAN OF CARE AND SAFETY PRECAUTIONS.
[2020-04-11] VITALS (11 sets, daily range): BP systolic 100–115; BP diastolic 52–71
[2020-04-11 04:47] LABS: ALBUMIN 2.6 g/dL (3.4-5.0); BILIRUBIN - TOTAL 0.68 mg/dL (0.2-1.3); CALCIUM 8.4 mg/dL (8.5-10.1); CREATININE - SERUM 1.6 mg/dL (0.6-1.3); POTASSIUM - SERUM 4.3 mmol/L (3.5-5.1); PROTEIN - SERUM 7.9 g/dL (6.4-8.2); VANCOMYCIN - RANDOM 3.9 ug/mL (10.0-20.0)
[2020-04-11 05:02] LABS: BASOPHILS 0.5 % (0-2); HEMATOCRIT 39.6 % (42.0-54.0); HEMOGLOBIN 11.2 g/dL (13.5-17.5); IMMATURE GRANULOCYTES 0.3 % (0-5); LYMPHOCYTES 16.6 % (15-50); MCH 26.1 pg (26.0-34.0); MCHC 28.3 g/dL (31.0-37.0); MEAN PLATELET VOLUME 9.2 fL (7.4-10.4); MONOCYTES 9.7 % (2-11); NEUTROPHILS 61.9 % (40-80); PLATELET COUNT 211 10x3/uL (130-400); RBC 4.29 10x6/uL (4.20-6.10); RDW 15.8 % (11.5-14.5); WBC 6.2 10x3/uL (4.8-10.8)
[2020-04-11 05:07] LABS: ANION GAP 3.1 mmol/L (8-16); MCV 92.3 fL (80.0-100.0)
[2020-04-11 05:09] LABS: CARBON DIOXIDE 40.2 mmol/L (21.0-32.0)
--- NOTE | 2020-04-11 07:00 | NUR ---
REPORT RECEIVED. ASSESSMENT COMPLETE PER FLOW SHEET. VSS. PT LETHARGIC RESPONSIVE TO PAINFUL STIMULI. WILL REASSESS.
--- NOTE | 2020-04-11 08:19 | NUR ---
Nutrition follow-up: Pt now in ICU 2/2 breathing issues Diet: renal ADA PO intake 100% x 2 meals; 0 at dinner on 04/10 Labs reviewed Wt: 268# RDN following.
--- NOTE | 2020-04-11 09:20 | NUR ---
NO NEW CHANGES DR GRAY CONSULTED, ABG ORDERED.
--- NOTE | 2020-04-11 11:20 | NUR ---
REASSESSMENT COMPLETE PER FLOW SHEET. VSS. PT RESTING COMFORTABLY WILL CONTINUE TO MONTIOR
--- NOTE | 2020-04-11 13:35 | PN ---
PATIENT:CURLY CROWLEY MEDICAL RECORD: [id number] LOCATION:[facility].231 ADMISSION DATE: 04/05/20 PROGRESS NOTE DATE OF SERVICE: 04/10/2020 SUBJECTIVE: The patient's case was discussed with staff. He has no new complaint. OBJECTIVE: The patient denies intent to harm himself or others and generally is tolerating his medicines well. He is oriented to person and place, but not to time or situation. He is clearly calmer than he was yesterday, although he does look a little sedated. Interestingly, he also ate adequately today, which he did not do yesterday. ASSESSMENT: Delirium. PLAN: The patient probably has an underlying condition in addition to a delirium, but at this point, I think he is primarily delirious and I have been treating him with a scheduled dose of Ativan and Zyprexa. Once he is medically stabilized, he may be transitioned to the behavioral unit for ongoing care and evaluation. TRANSINT:[id number] Voice Confirmation ID: [id number] DOCUMENT ID: [id number] LAVERNE SOLIS MD at 1335 CC: [id number] DICTATION DATE: 04/10/20 1535 PHARMACOVIGILANCE SCIENTIST: 04/11/20 0046 ADM IN [facility] [address] [place] [address]
--- NOTE | 2020-04-11 15:00 | NUR ---
REASSESSMENT COMPLETE PER FLOW SHEET. VSS. PT RESTING COMFORTABLY WILL CONTINUE TO MONITOR
[2020-04-12] VITALS (24 sets, daily range): BP systolic 98–146; BP diastolic 58–97
[2020-04-12 04:14] LABS: BASOPHILS 0.3 % (0-2); EOSINOPHILS 6.4 % (0-7); HEMATOCRIT 34.6 % (42.0-54.0); HEMOGLOBIN 10.1 g/dL (13.5-17.5); IMMATURE GRANULOCYTES 0.2 % (0-5); LYMPHOCYTES 20.3 % (15-50); MCH 26.1 pg (26.0-34.0); MCHC 29.2 g/dL (31.0-37.0); MEAN PLATELET VOLUME 9.7 fL (7.4-10.4); MONOCYTES 6.8 % (2-11); PLATELET COUNT 215 10x3/uL (130-400); RBC 3.87 10x6/uL (4.20-6.10); RDW 15.3 % (11.5-14.5); WBC 6.1 10x3/uL (4.8-10.8)
[2020-04-12 04:35] LABS: MCV 89.4 fL (80.0-100.0)
[2020-04-12 04:49] LABS: ANION GAP 9.9 mmol/L (8-16); CALCIUM 8.3 mg/dL (8.5-10.1); CARBON DIOXIDE 33.7 mmol/L (21.0-32.0)
[2020-04-12 04:58] LABS: CREATININE - SERUM 2.2 mg/dL (0.6-1.3); POTASSIUM - SERUM 3.6 mmol/L (3.5-5.1)
--- NOTE | 2020-04-12 07:00 | NUR ---
REPORT RECEIVED. ASSESSMENT COMPLETE PER FLOW SHEET. VSS. PT RETING COMFORTABLY WILL CONTINUE TO MONITOR
--- NOTE | 2020-04-12 09:20 | NUR ---
PT ON CPAP TRIAL
--- NOTE | 2020-04-12 11:00 | NUR ---
REASSESSMENT COMPLETE PER FLOW SHEET. VSS. PT RESTING COMFORTABLY WILL CONTINUE TO MONITOR
--- NOTE | 2020-04-12 13:15 | NUR ---
AIXA AT BEDSIDE GIVEN UPDATE. VSS NO NEW CHANGES WILL CONTINUE TO MONITOR
--- NOTE | 2020-04-12 14:01 | PN ---
PATIENT:CURLY CROWLEY MEDICAL RECORD: [id number] LOCATION:.[facility] D.230 ADMISSION DATE: 04/05/20 PROGRESS NOTE DATE OF SERVICE: 04/11/2020 SUBJECTIVE: The patient's case was discussed with staff. OBJECTIVE: The patient became hypercapnic last night and is now on a ventilator. I have discussed the situation with the snow maker. He was only receiving 0.5 mg of Ativan 3 times a day and was easily arousable. The source of this may be sedation from the Ativan, but it seems unlikely given such a modest dose. ASSESSMENT: Delirium. PLAN: I am going to hold the patient's Ativan for the time being and we will reassess him tomorrow. He is doing reasonably well on the ventilator and may be extubated by then. TRANSINT:[id number] Voice Confirmation ID: [id number] DOCUMENT ID: [id number] LAVERNE SOLIS MD at 1401 CC: [id number] DICTATION DATE: 04/11/20 1517 HAND KISS SETTER: 04/12/20 0106 ADM IN [facility] [address] [place] [id number]
--- NOTE | 2020-04-12 15:00 | NUR ---
REASSESSMENT COMPLETE PER FLOW SHEET. VSS. PT RESTING COMFORTALBY WILL CONTINUE TOMONITOR
[2020-04-13] VITALS (9 sets, daily range): BP systolic 105–123; BP diastolic 62–82
[2020-04-13 03:45] LABS: BASOPHILS 0.4 % (0-2); EOSINOPHILS 8.3 % (0-7); HEMATOCRIT 34.6 % (42.0-54.0); HEMOGLOBIN 10.2 g/dL (13.5-17.5); IMMATURE GRANULOCYTES 0.1 % (0-5); LYMPHOCYTES 12.6 % (15-50); MCHC 29.5 g/dL (31.0-37.0); MCV 88.3 fL (80.0-100.0); MEAN PLATELET VOLUME 9.3 fL (7.4-10.4); MONOCYTES 10.4 % (2-11); NEUTROPHILS 68.2 % (40-80); PLATELET COUNT 173 10x3/uL (130-400); RBC 3.92 10x6/uL (4.20-6.10); RDW 15.6 % (11.5-14.5)
[2020-04-13 03:59] LABS: WBC 7.9 10x3/uL (4.8-10.8)
[2020-04-13 04:10] LABS: ANION GAP 5.6 mmol/L (8-16); CALCIUM 8.3 mg/dL (8.5-10.1); CARBON DIOXIDE 38.2 mmol/L (21.0-32.0); CREATININE - SERUM 1.9 mg/dL (0.6-1.3); POTASSIUM - SERUM 3.8 mmol/L (3.5-5.1); VANCOMYCIN - RANDOM 7.1 ug/mL (10.0-20.0)
--- NOTE | 2020-04-13 07:00 | NUR ---
REPORT RECEIVED. ASSESSMENT COMPLETE PER FLOW SHEET. VSS. PT RESTING COMFORTABLY WILL CONTINUE TO MONITOR
--- NOTE | 2020-04-13 09:27 | NUR ---
Nutrition follow-up: Pt sitting up to chair at time of RDN visit Diet: Renal ADA PO intake ~50% of meals Labs reviewed Wt: 268# RDN following.
--- NOTE | 2020-04-13 09:40 | NUR ---
PT ASSISTED UP TO BEDSIDE COMMODE. LARGE BM NOTED.
--- NOTE | 2020-04-13 11:00 | NUR ---
REASSESSMENT COMPLETE PER FLOW SHEET. VSS. PT RESTING COMFORTABLY WILL CONTINUE TO MONTIOR
--- NOTE | 2020-04-13 19:30 | NUR ---
PT IN BED, AAO X 3, RESP EVEN AND UNLABORED. NO DISTRESS NOTED, CL IN REACH, SR UP X 2.
[2020-04-14] VITALS: BP 113/61
[2020-04-14 05:17] VITALS: BP 105/61
[2020-04-14 05:31] LABS: BASOPHILS 0.3 % (0-2); EOSINOPHILS 8.8 % (0-7); HEMATOCRIT 33.9 % (42.0-54.0); HEMOGLOBIN 9.7 g/dL (13.5-17.5); IMMATURE GRANULOCYTES 0.3 % (0-5); LYMPHOCYTES 13.3 % (15-50); MCH 25.5 pg (26.0-34.0); MCHC 28.6 g/dL (31.0-37.0); MCV 89.2 fL (80.0-100.0); MEAN PLATELET VOLUME 9.1 fL (7.4-10.4); MONOCYTES 11.3 % (2-11); PLATELET COUNT 167 10x3/uL (130-400); RDW 15.6 % (11.5-14.5); WBC 7.8 10x3/uL (4.8-10.8)
[2020-04-14 06:01] LABS: ANION GAP 6.4 mmol/L (8-16); CALCIUM 8.4 mg/dL (8.5-10.1); CARBON DIOXIDE 36.5 mmol/L (21.0-32.0); CREATININE - SERUM 1.6 mg/dL (0.6-1.3); POTASSIUM - SERUM 3.9 mmol/L (3.5-5.1); VANCOMYCIN - RANDOM 11.2 ug/mL (10.0-20.0)
--- NOTE | 2020-04-14 07:00 | NUR ---
RECEIVED REPORT. ASSUMED CARE OF PATIENT. PATIENT IN BED WITH EYES OPEN, RESTING WELL, VERY PLEASANT. NO DISTRESS. DENIES NEEDS. CALL LIGHT WITHIN REACH. CELLULITIS TO LEFT LOWER EXTREMITIY NOTED.
[2020-04-14 09:49] VITALS: BP 125/67
--- NOTE | 2020-04-14 12:24 | NUR ---
fsbs 115. no insulin coverage required.
[2020-04-14 13:50] VITALS: BP 126/66
--- NOTE | 2020-04-14 14:17 | NUR ---
rehab prescreen: thank you for this referral, will need to see how pt progresses with pt to complete this eval. pt also has [employer] insurance and will need proir auth before able to admit, with it being holiday weekend will not be able to obtain at this date, but will monitor and notify when get an approval. thank you for this eval dipak elisabeth sullivan clinical liasion
--- NOTE | 2020-04-14 16:11 | NUR ---
FSBS 128. NO INSULIN PER SLIDING SCALE.
--- NOTE | 2020-04-14 17:34 | NUR ---
SPOKE WITH RENAL BUSINESS ANALYTICS SPECIALIST JOSE F ABOUT PATIENT RECEIVING PLASMALYTE 7.4 BUT ALSO RECEIVING VELTESSA. NEW ORDERS RECEIVED AND INITIATED AT THIS TIME.
[2020-04-14 18:45] VITALS: BP 118/76
--- NOTE | 2020-04-14 19:19 | NUR ---
RECEIVED REPORT, WILL ASSUME CARE OF PT, WATCHING TV, DENIES ANY NEEDS AT THIS TIME, BED IS LOW, SRX2, CALL LIGHT IN REACH, WILL CONTINUE PLAN OF CARE
[2020-04-14 20:00] VITALS: BP 124/76
--- NOTE | 2020-04-14 20:11 | NUR ---
COLLECT UA TOOK TO LAB
[2020-04-15] VITALS: BP 110/70
--- NOTE | 2020-04-15 01:48 | NUR ---
I have reviewed this patient and I concur with the Shift Assessment completed by the Licensed Practical Nurse today this shift.
[2020-04-15 03:52] LABS: BASOPHILS 0.3 % (0-2); EOSINOPHILS 8.1 % (0-7); HEMATOCRIT 33.7 % (42.0-54.0); HEMOGLOBIN 9.6 g/dL (13.5-17.5); IMMATURE GRANULOCYTES 0.2 % (0-5); LYMPHOCYTES 16.4 % (15-50); MCH 25.5 pg (26.0-34.0); MCHC 28.5 g/dL (31.0-37.0); MCV 89.4 fL (80.0-100.0); MEAN PLATELET VOLUME 10.1 fL (7.4-10.4); MONOCYTES 10.4 % (2-11); NEUTROPHILS 64.6 % (40-80); PLATELET COUNT 176 10x3/uL (130-400); RBC 3.77 10x6/uL (4.20-6.10); RDW 15.5 % (11.5-14.5)
[2020-04-15 03:53] LABS: ANION GAP 6.1 mmol/L (8-16); CALCIUM 8.7 mg/dL (8.5-10.1); CARBON DIOXIDE 35.8 mmol/L (21.0-32.0); CREATININE - SERUM 1.6 mg/dL (0.6-1.3); MAGNESIUM - SERUM 1.9 mg/dL (1.8-2.4); POTASSIUM - SERUM 3.9 mmol/L (3.5-5.1)
[2020-04-15 04:00] VITALS: BP 127/67
--- NOTE | 2020-04-15 07:00 | NUR ---
RECEIVED REPORT. ASSUMED CARE OF PATIENT. CALL LIGHT WITHIN REACH. RESP EVEN AND UNLABORED. NO DISTRESS.
--- NOTE | 2020-04-15 11:22 | NUR ---
FSBA 108. NO INSULIN PER SLIDING SCALE.
--- NOTE | 2020-04-15 11:53 | NUR ---
PATIENTS DAUGHTER AT BEDSIDE FOR VISIT. NO DISTRESS. PATIENT CONSUMING NOON MEAL.
[2020-04-15 13:04] VITALS: BP 145/78
--- NOTE | 2020-04-15 13:41 | NUR ---
MEDICATED FOR BACK PAIN AT THIS TIME. NO DISTRESS.
--- NOTE | 2020-04-15 16:25 | NUR ---
FSBS 113. NO INSULIN PER SLIDING SCALE.
[2020-04-15 17:12] VITALS: Ht 177.8 cm; Wt 111.1 kg
--- NOTE | 2020-04-15 17:18 | NUR ---
SPOKE WITH MANAGER OF REGULATORY AFFAIRS KYLE REGARDING PUNCH BIOPSY IN THE AM WITH . FAXED NURSING MESSAGE TO MANAGER OF REGULATORY AFFAIRS SO ALL REQUESTED ITEMS WOULD BE READY AT NURSES STATION FOR .
[2020-04-15 18:53] VITALS: BP 128/76
--- NOTE | 2020-04-15 18:53 | NUR ---
CONSENTS SIGNED FOR PUNCH BIOPSY IN AM.
--- NOTE | 2020-04-15 19:16 | NUR ---
RECIEVED BVEDSIDE SHIFT REPORT. ALERT AND ORIENTED X3. LEFT LOWER EXTREMITY IS RED, WARM AND SWOLLEN. SKIN IS SCALEY. O2@ 2 LITERS PER HF. IV TO LEFT HAND WITH NS AT 125CC/HR. NO REDNESS OR SWELLING TO SITE. DENIES ANY NEEDS AT THIS TIME.
[2020-04-15 20:30] VITALS: BP 142/79
[2020-04-16 00:30] VITALS: BP 136/74
[2020-04-16 04:30] VITALS: BP 146/82
[2020-04-16 05:17] LABS: BASOPHILS 0.2 % (0-2); HEMATOCRIT 35.2 % (42.0-54.0); HEMOGLOBIN 9.9 g/dL (13.5-17.5); IMMATURE GRANULOCYTES 0.2 % (0-5); LYMPHOCYTES 16.5 % (15-50); MCH 25.6 pg (26.0-34.0); MCHC 28.1 g/dL (31.0-37.0); MCV 91.2 fL (80.0-100.0); MEAN PLATELET VOLUME 9.8 fL (7.4-10.4); MONOCYTES 12.3 % (2-11); NEUTROPHILS 62.8 % (40-80); PLATELET COUNT 187 10x3/uL (130-400); RBC 3.86 10x6/uL (4.20-6.10); RDW 15.4 % (11.5-14.5); WBC 5.6 10x3/uL (4.8-10.8)
[2020-04-16 05:24] LABS: ANION GAP 4.1 mmol/L (8-16); CALCIUM 8.7 mg/dL (8.5-10.1); CARBON DIOXIDE 37.9 mmol/L (21.0-32.0); CREATININE - SERUM 1.4 mg/dL (0.6-1.3)
--- NOTE | 2020-04-16 07:30 | NUR ---
REPORT RECIEVED. PT SITTING SEMI FOWLERS IN BED. RR EVEN AND UNLABORED ON 2L NC. PT CURRENTLY NPO FOR A PROCEDURE WITH . PT HAS A L HAND PIV INFUSING NS @125. BED LOCKED AND IN LOWEST POSITION, CALL LIGHT WITHIN REACH. WILL CTM
[2020-04-16 10:37] VITALS: BP 167/99
--- NOTE | 2020-04-16 12:04 | PN ---
PATIENT:CURLY CROWLEY MEDICAL RECORD: [id number] LOCATION:[address] ADMISSION DATE: 04/05/20 PROGRESS NOTE DATE OF SERVICE: 04/12/2020 SUBJECTIVE: The patient's case was discussed with staff. He has no new complaint. OBJECTIVE: The patient has been extubated. He is somewhat sedated and poorly oriented. ASSESSMENT: Delirium. PLAN: The patient's mental status could not be fully assessed at this time. I would continue to hold his psychoactive medications pending the next 24 hours or so to see how his cognition has changed. TRANSINT:[id number] Voice Confirmation ID: [id number] DOCUMENT ID: [id number] LAVERNE SOLIS MD at 1204 CC: [id number] DICTATION DATE: 04/12/20 1555 PRODUCT SAFETY COORDINATOR: 04/12/20 1750 ADM IN [place] [id number] [place] [address]
--- NOTE | 2020-04-16 13:02 | NUR ---
OT NOTE: PT SEEN LATER IN AM.. REQUESTING TO AMBULATE.. MOD ASSIST FOR SIT TO STAND..VERY IMPULSIVE; ABLE TO AMB WITH MIN ASSIST X 2 WITH WALKER, GAIT BELT, AND 02 ( ASSISTANCE REQUIRED WITH EQUIP MGMT).. PT WAS ABLE TO AMB APPROX 85 FT.. VERY FATIGUED UPON RETURN TO ROOM; DTR IN ROOM; PT TRANSFERRED TO BED WITH MOD ASSIST..REQUESTED TO STAY SITTING ON EOB SO THAT DTR COULD HAVE HIS CHAIR. GOOD SITTING BALANCE NOTED. ANNA LOUIS, OTR/L [phone]
[2020-04-16 14:17] VITALS: BP 165/89
--- NOTE | 2020-04-16 16:40 | NUR ---
I have reviewed this patient and I concur with the Shift Assessment completed by the Licensed Practical Nurse today this shift.
[2020-04-16 19:47] VITALS: BP 149/83
--- NOTE | 2020-04-16 19:54 | NUR ---
REPORT RECEIVED AND ROUNDING COMPLETE. PATIENT LAYING IN BED IN LOW FOWLERS, ASSISTED PATIENT INTO A MORE COMFORTABLE POSITION. PATIENT ASKED FOR 2 ICE CREAMS AND I ASKED HIM TO WAIT UNTIL I CHECK HIS FSBS. PAITNET IS WEARING NASAL CANNULA WITH 02 AT 3L, PATIENT IS CONFUSED X3. PATIENT HAS A LEFT HAND PIV WITH NORMAL SALINE RUNNING AT THIS TIME, PIV SHOWS NO S/SX OF INFILTRATION. PATIENT SHOWS NO S/SX OF DISTRESS AT THIS TIME. CALL LIGHT WITHIN REACH AND BED IN LOWEST LOCKED POSITION. ASSESSMENT DONE AT THIS TIME.
--- NOTE | 2020-04-16 22:47 | NUR ---
PATIENT WAS IN ROOM YELLING, WHEN I ENTERED PATIENT'S ROOM THERE WAS BLOOD ALL OVER ROOM. FRANCIS HAD PULLED OUT HIS PIV FROM LEFT HAND. HE STATED HE HAD TO PULL IT OUT IN ORDER TO USE THE REST ROOM. CLEANED PATIENT'S ROOM UP AND PATIENT THEN PUT PATIENT BACK TO BED. CATH INTACT ON PIV, WILL PLACE ANOTHER PIV.
[2020-04-17] VITALS (15 sets, daily range): BP systolic 138–179; BP diastolic 77–100
[2020-04-17 04:42] LABS: BASOPHILS 0.1 % (0-2); EOSINOPHILS 4.2 % (0-7); HEMATOCRIT 35.9 % (42.0-54.0); HEMOGLOBIN 10.2 g/dL (13.5-17.5); IMMATURE GRANULOCYTES 0.3 % (0-5); LYMPHOCYTES 12.8 % (15-50); MCH 25.6 pg (26.0-34.0); MCHC 28.4 g/dL (31.0-37.0); MCV 90.2 fL (80.0-100.0); MEAN PLATELET VOLUME 9.5 fL (7.4-10.4); MONOCYTES 9.2 % (2-11); NEUTROPHILS 73.4 % (40-80); PLATELET COUNT 204 10x3/uL (130-400); RBC 3.98 10x6/uL (4.20-6.10); RDW 14.8 % (11.5-14.5)
[2020-04-17 05:05] LABS: ANION GAP 9.2 mmol/L (8-16); CALCIUM 9.1 mg/dL (8.5-10.1); CARBON DIOXIDE 35.9 mmol/L (21.0-32.0); CREATININE - SERUM 1.2 mg/dL (0.6-1.3); POTASSIUM - SERUM 4.1 mmol/L (3.5-5.1)
[2020-04-17 05:09] LABS: WBC 7.2 10x3/uL (4.8-10.8)
--- NOTE | 2020-04-17 07:50 | NUR ---
PT RECEIVED LAYING IN BED. AROUSED TO VOICE. SOMEWHAT CONFUSED, LETHARGIC. ORIENTED TO PERSON, PLACE, . PULSE OX 83% ON 3L. TITRATED UP TO 8 LITERS HIGH FLOW FOR PULSE OX 95%. TOMMY HOU IN ROOM, ORDERED ABG'S, RT NOTIFIED. IV STARTED, PT PULLED OUT IN NIGHT. ABDOMEN WITH MOTTLED APPEARANCE THAT PRIOR NURSE STATES IS GETTING WORSE.
--- NOTE | 2020-04-17 09:07 | NUR ---
ABG'S CALLED INTO DR MCKEON. ORDER TO PLACE ON BIPAP FOR NOW. RT NOTIFIED.
--- NOTE | 2020-04-17 10:10 | NUR ---
Nutrition Follow-up: Pt remains confused. On bipap this AM. Eating well overall. Diet: Renal ADA PO intake: 75-100% Wt: 281.9# (04/17) Last BM: 04/17 Labs noted: Glu 130, K+ 4.1, BUN 15, Cre 1.2, GFR 64 Meds noted: Protonix, Pepcid, Humalog, electrolyte protocol -Monitor wt; noted daily wts ordered. -RD following.
--- NOTE | 2020-04-17 10:44 | NUR ---
PT WITH TRANSFER ORDER FOR ICU ROOM 2308. ROOM GETTING READY. IN ROOM NOW SO UPDATED. RT FOLLOWING.
[2020-04-17 14:22] LABS: PRO BNP 5721 pg/mL (0-125); TROPONIN-I < 0.017 ng/mL (0.000-0.060)
--- NOTE | 2020-04-17 15:00 | PN ---
PATIENT:CURLY CROWLEY MEDICAL RECORD: [id number] LOCATION:[facility] ADMISSION DATE: 04/05/20 PROGRESS NOTE DATE OF SERVICE: 04/16/2020 SUBJECTIVE: The patient's case was discussed with staff. He has no new complaint. OBJECTIVE: The patient denies intent to harm himself or others. He is fully oriented. His mood is euthymic. ASSESSMENT: Delirium, resolved. PLAN: The patient is appropriate for transfer to rehabilitation. I am at a loss to explain his agitation and delirium that was present a week ago. There is likely some underlying cognitive deficits present, but that is difficult to say. At this point, it is clear he is not showing evidence of a delirium and I do not think additional psychiatric followup is necessary at this point. TRANSINT:[id number] Voice Confirmation ID: [id number] DOCUMENT ID: [id number] LAVERNE SOLIS MD at 1500 CC: [id number] DICTATION DATE: 04/16/20 1508 CERTIFIED MASTER SAFE TECHNICIAN: 04/16/20 2205 ADM IN [place] [id number] [place] [id number]
--- NOTE | 2020-04-17 15:26 | NUR ---
PT'S TAKING CELL PHONE AND GLASSES HOME SINCE PT MOVING TO ICU.
--- NOTE | 2020-04-17 16:00 | NUR ---
CALLED AND INSERT COLLIER ORDER RECIEVED. COLLIER INSERTED CHG BATH GIVEN PT POSITIONED FOR COMFORT WILL CONTINUE TO MONITOR.
--- NOTE | 2020-04-17 16:31 | NUR ---
Rehab Note- The patient has been moved to CVICU due to respiratory distress. Will continue to follow at this time. Thank you for this referral! Tamara Mena RN Clinical Liaison, [facility] Rehab
--- NOTE | 2020-04-17 19:30 | NUR ---
PT CONFUSED ATTEMPTING TO GET UP OUT OF BED, REORIENTATED TO SITUATION, CALL LIGHT IN REACH, BED ALARM ON, WILL CONTINUE TO MONITOR
--- NOTE | 2020-04-17 19:40 | NUR ---
PT PLACED ON BIPAP PER ORDERS, REVIEWED USE AND TEACHING WITH PT
--- NOTE | 2020-04-17 20:00 | NUR ---
PT ATTEMPTING TO GET OUT OF BED, BULLED OFF AND BROKE BIPAP MASK, BED ALARM SOUNDING, ATTEMPTED TO REORIENT PT, PT BECAME VERBALLY AGGRESIVE SWEARING AT RN x2, PT CALMED AND REORIENTED TO SITUATION, CALL LIGHT IN REACH, REVIEWED ALL TEACHING, BED ALARM ON, WILL CONTINUE TO MONITOR
--- NOTE | 2020-04-17 22:30 | NUR ---
REMOVED BIPAP PLACED ON HFNC, LARGE CUP ICE WATER GIVEN, NO DIFFICULTY SWALLOWING NOTED, BIPAP REPLACED ON PT, VSS, WILL CONTINUE TO MONITOR
--- NOTE | 2020-04-17 23:36 | NUR ---
PT CONFUSED PULLING BIPAP OFF FACE, NEW BIPAP PLACED ON PT D/T PT BREAKING OLD MASK, REPOSITIONED FOR COMFORT, REORIENTED PT TO SITUATION, VSS, WILL CONTINUE TO MONITOR
[2020-04-18] VITALS (23 sets, daily range): BP systolic 115–156; BP diastolic 68–91
--- NOTE | 2020-04-18 03:00 | NUR ---
REASSESMENT COMPLTED. SEE FLOW SHEET. PT RESTING WITH NO ISSUES. VSS. WILL CONT POC.
--- NOTE | 2020-04-18 06:18 | NUR ---
TRAFFIC ATTENDANT ASKED FOR MY ASSISTANCE WHENEVER DRAWING FOR BLOOD. PT BEING UNCOOPERATIVE AND UNABLE TO OBTAIN A BLOOD SAMPLE DUE TO HIM INTENTIONALLY MOVING HIS ARMS AROUND SAYING "YOUR NOT GONNA GET ANY BLOOD FROM ME. YOU ARE MAKING DEALS WITH THE DOCTOR." PT REMAINS CONFUSED. REATTEMPTED TO REORIENT WITH NO LUCK. PT ALSO REFUSED PO MEDICATION.
--- NOTE | 2020-04-18 07:00 | NUR ---
AWAKE AND TALKATIVE. SEEMS FAIRLY COOPERATIVE. NO DISTRESS. IV LEFT AC OFF. NO SWELLING OR REDNESS. MONITOR SR. COLLIER CATH PATENT DRAINING CLEAR VENKAT URINE. LOWER LEGS DEEP RED DRY FLAKY SKIN SCALPED OVER AREA LEFT INNER ANKLE. NO DRAINAGE NOTED. HEAD OF BED ELEVATED 30 DEGREES. OXYGEN 6 LITERS HIGH FLOW.
--- NOTE | 2020-04-18 08:00 | NUR ---
BREAKFAST SERVED ATE 90%. FEEDS SELF. TALKS ALOT WHILE EATING.
--- NOTE | 2020-04-18 08:15 | NUR ---
PER BLOOD GAS, BIPAP REAPPLIED PER PHYSICAL THERAPY. DEEP EDUCATION TO PATIENT WHY HE NEEDS BIPAP, PER NURSE AND RESP. THERAPY. PATIENT VERBALIZED UNDERSTANIND.
--- NOTE | 2020-04-18 09:30 | NUR ---
PATIENT PULLING MASK OFF FROM BIPAP, SCREAMING THAT THE WELDING MACHINE OPERATOR [employer] DID IT WHEN PATIENT STILL HAS HIS HANDS ON THE MASK. PATIENT FIGHTING NURSE AND SCREAMING WITH ASSISTANCES OF OTHER NURSE RESTRAINTS APPLIED. PATIENT CONFUSED. EXPLAINED TO PATIENT BY SEVERAL NURSE WHY HE NEEDS BIPAP AND WHY HE IS CONFUSED.
--- NOTE | 2020-04-18 09:39 | NUR ---
Nutrition Follow-up: Now in CVICU 2/2 respiratory distress. On bipap this AM. Pt uncooperative with lab draw. Diet: Renal ADA PO intake: 92% avg x 6 meals Wt: 281.9# (04/17) Last BM: 04/17 Meds noted: NS @ 50, Lasix, Protonix, Pepcid, Humalog, electrolyte protocol -Monitor wt. -RD following.
--- NOTE | 2020-04-18 09:48 | NUR ---
LAB DRAWN, PATIENT TOLERATED WELL. MALE NURSE AT [facility] EXPLAINING AND TALKING TO PATIENT.
[2020-04-18 09:50] LABS: BASOPHILS 0.2 % (0-2); EOSINOPHILS 4.2 % (0-7); HEMATOCRIT 35.5 % (42.0-54.0); HEMOGLOBIN 10.4 g/dL (13.5-17.5); IMMATURE GRANULOCYTES 0.2 % (0-5); LYMPHOCYTES 12.8 % (15-50); MCH 25.9 pg (26.0-34.0); MCHC 29.3 g/dL (31.0-37.0); MCV 88.5 fL (80.0-100.0); MEAN PLATELET VOLUME 9.2 fL (7.4-10.4); MONOCYTES 8.2 % (2-11); NEUTROPHILS 74.4 % (40-80); PLATELET COUNT 209 10x3/uL (130-400); RBC 4.01 10x6/uL (4.20-6.10); RDW 14.6 % (11.5-14.5); WBC 5.9 10x3/uL (4.8-10.8)
[2020-04-18 10:29] LABS: ALBUMIN 2.7 g/dL (3.4-5.0); BILIRUBIN - TOTAL 0.82 mg/dL (0.2-1.3); CREATININE - SERUM 1.3 mg/dL (0.6-1.3); MAGNESIUM - SERUM 1.5 mg/dL (1.8-2.4); PHOSPHOROUS 3.3 mg/dL (2.5-4.9); PROTEIN - SERUM 7.2 g/dL (6.4-8.2)
--- NOTE | 2020-04-18 10:30 | NUR ---
PATIENT CALM, ABLE TO TALK TO HIM, VOICES UNDERSTANDING, STATES HE NEEDS TO APPOLIGIZE TO MALE NURSES, STATES HE DID NOT UNDERSTAND. COMPLETE BED BATH GIVEN WITH LINE CHANGE. PATIENT ABLE TO TURN SELF FROM SIDE. TO SIDE. PULSE OX DID DROP WHEN PATIENT WAS LYIG FLAT INTO UPPER 80'S. PATIENT ADMITS HE IS A LITTLE SHORT OF BREATH. NOT TRYING TO TAKE BIPAP OFF.
[2020-04-18 10:39] LABS: ANION GAP 4.3 mmol/L (8-16); POTASSIUM - SERUM 3.4 mmol/L (3.5-5.1)
[2020-04-18 10:41] LABS: CARBON DIOXIDE 44.1 mmol/L (21.0-32.0)
--- NOTE | 2020-04-18 12:00 | NUR ---
BI PAP OFF, ON 6 LITERS HIGH FLOW OXYGEN. LUNCH TRAY SERVED. ATE WELL. FEEDS SELF. GOOD APPETITE. PO FLUIDS TAKEN WITHOUT DIFFICULTY. NO PROBLEM SWALLOWING PILLS.
--- NOTE | 2020-04-18 12:40 | NUR ---
BI PAP REAPPLIED. PATIENT VERBALIZED UNDERSTANDING OF NEED FOR BIPAP.
--- NOTE | 2020-04-18 15:40 | NUR ---
BI PAP REMOVED. IV RESTARTED LEFT FOREARM, INFUSING WITH NS AT 50 ML HOUR. IV LEFT AC SALINE LOCKED. ON 6 LITERS PER HIGH FLOW OX. STILL VERY CONFUSED, THINKS SOMEONE TOLD HIM HE WAS GOING HOME TOMORROW. TRIED TO DO INCENTIVE SPIROMETRY WITH PATIENT VERY HARD FOR HIM TO UNDERSTAND, FINALLY TOOK A FEW BREATH UP TO 750 ML
--- NOTE | 2020-04-18 15:54 | NUR ---
RESTING COMFORTABLY ON BIPAP NO DISTRESS. EYES CLOSED. RESP DEEP AND REGULAR. WHEN AWAKE MORE CALM AND COOPERATIVE. BUT STILL VERY CONFUSED. CONVERSATIONS DO NOT MAKE ANY SENSE
--- NOTE | 2020-04-18 16:38 | NUR ---
PATIENT REMOVED OXYGEN PULSE 77% WITH GOOD WAVE FORM, OXYGEN REPLACE UP TO 82%. BIPAP PLACED. PATIENT PULSE OX UP TO 98%. PATIENT COOPERATIVE WITH APPLICATION BI PAP
--- NOTE | 2020-04-18 16:54 | MORECARE ---
CASE MANAGEMENT DISCHARGE SUMMARY PATIENT: CURLY CROWLEY UNIT: [id number] ADM DATE: 04/05/20 AGE: 64 : 51 SEX: M ROOM/BED: D[facility] AUTHOR: MATDOC PHYSICIAN: REFERRING PHYSICIAN: CLAYTON FOWLER MD DATE OF SERVICE: 04/18/20 Discharge Plan Patient Name: CURLY CROWLEY Facility: [facility]:[place] : 1955 Planned Disposition: Anticipated Discharge Date: Discharge Date: Expected LOS: Initial Reviewer: [email or web address] Initial Review Date: 04/05/2020 Generated: 04/18/20 5:54 pm Comments DCP- Discharge Planning Updated by [id number]: Carmella Ramos on 04/18/20 3:[address] Patient Name: CURLY CROWLEY Admission Status: ER Accout number: [id number] Admission Date: 04-05-2020 : 1955 Admission Diagnosis:ALTERED MENTAL STATUS, UNSPECIFIED Attending: CLAYTON FOWLER Current LOS: 13 Anticipated DC Date: Planned Disposition: Primary Insurance: [employer] Discharge Planning Comments: CM called and spoke with patient's spouse Slime to complete initial dc planning assessment. CM educated Slime on the CM role and verbal consent given by patient to complete assessment. Patient lives at home with family. Patient is independent. At discharge patient plans to return home and feels this is a safe discharge. CM discussed availability of home health, rehab services, and medical equipment. Patient has [facility] and they plan to resume care when discharged. SALLY signed. Slime would like [facility] IP rehab if patient will qualify. No preference in DME if patient requires 02 @ discharge. Patient will have family to transport home. Patient denied known discharge needs at this time. CM will continue to follow and will assist as needed with dc plans/needs. Roller Coaster Designer: Carmella Ramos DCP- Discharge Planning Updated by [email or web address]: Rhonda Colon on 04/17/20 8:[address] CM called patient's at [phone] to discuss discharge planning/needs. I reached a voice mail and left a message to return my call. DCP- Discharge Planning Updated by [email or web address]: Carmella Ramos on 04/11/20 7:[address] CM RECIEVED A MESSAGE FROM YAYO BURNETT CM WITH [employer] CALLED AND LEFT HER INFORMATION IF PATIENT NEEDS ANY HELP WITH DISCHARGE PLANS [phone]. DCPIA - Discharge Planning Initial Assessment Updated by [email or web address]: Carmella Ramos on 04/18/20 4:33 pm * Is the patient Alert and Oriented? Yes * How many steps to enter\exit or inside your home? * PCP ARIAS * Pharmacy [facility] * Preadmission Environment Home with Family * ADLs Independent * Equipment Walker * Other Equipment LIFT CHAIR * List name and contact numbers for known caregivers / representatives who currently or will assist patient after discharge: SLIME CROWLEY - [facility] - [phone] * Verbal permission to speak to the caregivers and representatives has been obtained from the patient. Yes * Community resources currently utilized Home Health * Please name any agencies selected above. [facility] * Additional services required to return to the preadmission environment? Yes * Can the patient safely return to the preadmission environment? No * Has this patient been hospitalized within the prior 30 days at any hospital? Yes Patient Name: CURLY CROWLEY Page [phone] at 1654 All edits/amendments must be made on the electronic document DICTATION DATE: 04/18/201653 LITHARGE MILL OPERATOR: GARY 04/18/201653 RPT#: [id number] DC DATE: STATUS: ADM IN [facility] [address] [place] [address] END OF REPORT
--- NOTE | 2020-04-18 17:00 | NUR ---
PATIENT BROKE BIPAP MASK, WHILE HE WAS RESTRAINTS, STATES HE WILL TEAR IT ALL UP. PLACED ON 6 LITERS NC. AT PATIENT REQUEST. STILL CONFUSED KEEPS SAYING HE IS GOING USE THE ONE OVER THERE. NOT MAKING ANY SENSE WITH CONVERSATION.
--- NOTE | 2020-04-18 17:43 | NUR ---
CALLED AIXA REGARDING PATIENT GLASSES AND CELL PHONE, SHE STATES THAT SHE HAS THEM BOTH, SHE BROUGHT THEM HOME YESTERDAY. SHE WILL BRING THEM TO HIM TOMORROW.
--- NOTE | 2020-04-18 18:15 | NUR ---
PT NON COMPLIANT WITH BILEVEL NURSE REMOVED RESTRAINTS INCREASED LITER FLOW TO 1O HFNC SPO2 93% AND HOLDING AT THIS TIME
--- NOTE | 2020-04-18 18:30 | NUR ---
PATIENT PULLED EVERYTHING OFF, CLOTHES, EKG, PULSE OX, BP CUFF. REORIENTATED. EVERYTHING REPLACE. NOT COMBATIVE, JUST CONFUSED.
--- NOTE | 2020-04-18 19:00 | NUR ---
SHIFT ASSESSMENT COMPLETED. PT CARE ASSUMED, MONITORS ON AND WORKING, VITALS STABLE, CALL LIGHT WITHIN REACH, PT AWAKE, CONFUSED TO TIME PLACE AND SITUATION. SEE FLOW SHEET FOR FURTHER DETAILS. WILL CONTINUE TO OBSERVE.
--- NOTE | 2020-04-18 21:00 | NUR ---
PT RIPPED OFF BIPAP, ICE CHIPS GIVEN PER PTS REQUEST, PT TURNED AND REPOSITIONED FOR COMFORT, NEW BIPAP REPLACED AND PLACED ON PT AT THIS TIME, PT STATES UNDERSTANDING OF BIPAP BEING LEFT ON. MONITORS ON AND WORKING, VITALS STABLE, CALL LIGHT WITHIN REACH, WILL CONTINUE TO OBSERVE.
--- NOTE | 2020-04-18 23:00 | NUR ---
PT REPOSITIONED IN BED AND GIVEN WATER AND ICE CHIPS PER PTS REQUEST. BIPAP PLACED BACK ON PT AT THIS TIME, SEE FLOW SHEET FOR FURTHER DETAILS, WILL CONTINUE TO OBSERVE.
[2020-04-19] VITALS (25 sets, daily range): BP systolic 99–148; BP diastolic 57–88
--- NOTE | 2020-04-19 01:00 | NUR ---
PT TURNED AND REPOSITIONED FOR COMFORT, MONITORS ON AND WORKING, VITALS STABLE, BIPAP MASK REPLACED AGAIN FOR PT BREAKING IT. CALL LIGHT WITHIN REACH, WILL CONTINUE TO OBSERVE.
--- NOTE | 2020-04-19 03:00 | NUR ---
PT LYING IN BED RESTING, MONITORS ON AND WORKNG, VITALS STABLE, CALL LIGHT WITHIN REACH, SEE FLOW SHEET FOR FURTHER DETAILS. WILL CONTINUE TO OBSERVE.
--- NOTE | 2020-04-19 05:00 | NUR ---
K+ COVERED. PT LYING IN BED, NC ON 10LPM. CALL LIGHT WITHIN REACH. WILL CONTINUE TO OBSERVE.
[2020-04-19 06:17] LABS: BASOPHILS 0.2 % (0-2); EOSINOPHILS 4.8 % (0-7); HEMOGLOBIN 10.6 g/dL (13.5-17.5); IMMATURE GRANULOCYTES 0.2 % (0-5); LYMPHOCYTES 17.6 % (15-50); MCH 25.4 pg (26.0-34.0); MCHC 28.6 g/dL (31.0-37.0); MCV 88.7 fL (80.0-100.0); MEAN PLATELET VOLUME 9.3 fL (7.4-10.4); MONOCYTES 13.2 % (2-11); PLATELET COUNT 205 10x3/uL (130-400); RBC 4.17 10x6/uL (4.20-6.10); RDW 14.7 % (11.5-14.5); WBC 5.2 10x3/uL (4.8-10.8)
[2020-04-19 06:27] LABS: ANION GAP 2.7 mmol/L (8-16); CALCIUM 9.3 mg/dL (8.5-10.1); CREATININE - SERUM 1.5 mg/dL (0.6-1.3); POTASSIUM - SERUM 3.3 mmol/L (3.5-5.1)
[2020-04-19 06:41] LABS: CARBON DIOXIDE 45.6 mmol/L (21.0-32.0)
--- NOTE | 2020-04-19 09:59 | NUR ---
PLACED ON BIPAP BY RESPERITORY THERAPIST AT THIS TIME.
--- NOTE | 2020-04-19 10:03 | NUR ---
PLACED ON BIPAP AT 45% AT THIS TIME.
--- NOTE | 2020-04-19 10:45 | NUR ---
22G PIV PLACED ON RIGHT HAND. 22G PIV PLACED ON RIGHT AC.
--- NOTE | 2020-04-19 10:50 | NUR ---
PIV ON LEFT FOREARM DC'D. NOT WORKING PROPERLY. PT REPORTED DISCOMFORT WHEN FLUSHING WITH NS.
--- NOTE | 2020-04-19 11:30 | NUR ---
OFF BIPAP AT THIS TIME. PULLED UP AND REPOSITIONED FOR COMFORT.
--- NOTE | 2020-04-19 12:45 | NUR ---
PLACED ON BIPAP 45% AT THIS TIME.
--- NOTE | 2020-04-19 13:32 | OP ---
PATIENT NAME: CURLY CROWLEY MEDICAL RECORD: [id number] :[birth year] [facility] ADMISSION DATE:04/05/20 SURGEON: TIM HAYNES MD DATE OF OPERATION: 04/16/2020 PREOPERATIVE DIAGNOSIS: Left temporal skin lesion suspicious for melanoma. POSTOPERATIVE DIAGNOSIS: Left temporal skin lesion suspicious for melanoma. PROCEDURE: Skin punch biopsies times 2, each 4 mms in diameter. SURGEON: Tim Haynes MD AEROSPACE PROJECT MANAGER: None. BLOOD LOSS: 5 cc. ANESTHESIA: Local. COMPLICATIONS: None. The risks, possible complications and alternatives to the procedure were explained to the patient. He elects to proceed. OPERATIVE COURSE: The patient was seen in his bed. The head was sterilely prepped and draped. A local anesthetic consisting of 1% lidocaine without epinephrine was used in infiltrate the skin of the pigmented skin lesion. This skin lesion is 2.4 cm in greatest dimension. Two 4 mm punch biopsies were performed. These were placed in formalin. I then closed the biopsy sites with 3-0 Vicryl sutures. A sterile dressing was applied. TRANSINT:[id number] Voice Confirmation ID: [id number] DOCUMENT ID: [id number] TIM HAYNES MD at 1332 CC: [id number] DICTATION DATE: 04/16/20825 INSTITUTIONAL COMMODITY ANALYST: 04/16/20 0845 ADM IN [place] [id number]
--- NOTE | 2020-04-19 14:20 | NUR ---
PULLED PIV OUT FROM RIGHT AC. RESTRAINTS ON BILATERAL WRISTS SECURED. NO IV ACCESS AT THIS TIME. WILL CONTINUE TO MONITOR.
--- NOTE | 2020-04-19 14:50 | NUR ---
OFF BIPAP AT THIS TIME. PT KEPT PULLING AT BIPAP EVEN WITH WRIST RESTRAINT ON. PLACED ON 6L HIGH FLOW NC. WILL CONTINUE TO MONITOR.
--- NOTE | 2020-04-19 15:09 | NUR ---
PHONE CALL RECEIVED FROM MRS. CROWLEY. VERIFIED PT'S FULL NAME AND DATE OF . GAVE UPDATE ON PT STATUS. SHE WILL TRY TO COME UP TO SEE PT TOMORROW.
--- NOTE | 2020-04-19 16:00 | NUR ---
22G PIV PLACED ON RIGHT FOREARM.
--- NOTE | 2020-04-19 16:33 | NUR ---
OT NOTE: PT REQUIRED MAX A WITH POSITIONING TASK. PT COMPLETED UE AAROM. PT REQUIRED MIN/MOD A WITH UE HYGIENE. [phone] THEE ALMONTE COTA
--- NOTE | 2020-04-19 16:40 | NUR ---
DINNER TRAY SET UP. O2 DECREASED TO 4L VIA HIGH FLOW NC.
--- NOTE | 2020-04-19 17:30 | NUR ---
PLACED ON BIPAP AT 40%. WRIST RESTRAINTS IN PLACE. WILL CONTINUE TO MONITOR.
--- NOTE | 2020-04-19 19:00 | NUR ---
SHIFT ASSESSMENT COMPLETED. PT CARE ASSUMED, MONITORS ON AND WORKING, VITALS STABLE. SEE FLOW SHEET FOR FURTHER DETAILS, WILL CONTINUE TO OBSERVE.
--- NOTE | 2020-04-19 21:00 | NUR ---
PT LYING IN BED RESTING. MONITORS ON AND WORKING, BIPAP OFF AT THIS TIME, NC ON 10LPM, WILL CONTINUE TO OBSERVE.
--- NOTE | 2020-04-19 23:00 | NUR ---
PT TURNED AND REPOSITIONED FOR COMFORT. MONITORS ON AND WORKING, VSS, CALL LIGHT WITHIN REACH, WILL CONTINUE TO OBSERVE.
[2020-04-20] VITALS (25 sets, daily range): BP systolic 96–139; BP diastolic 51–84
--- NOTE | 2020-04-20 01:00 | NUR ---
BIPAP ON, PT TOLERATING WELL AT THIS TIME, VSS WILL CONTINUE TO OBSERVE.
--- NOTE | 2020-04-20 03:00 | NUR ---
CHG BED BATH AND COMPLETE LINEN CHANGE DONE AT THIS TIME, PT TOLERATED WELL. MONITORS ON AND WORKING, VSS, CALL LIGHT WITHIN REACH, SEE FLOW SHEET FOR FURTHER DETIALS. WILL CONTINUE TO OBSERVE.
--- NOTE | 2020-04-20 05:00 | NUR ---
CHG BATH AND COMPLETE LINEN CHANGE DONE AT THIS TIME, PT TOLERATED WELL, MONITORS ON AND WORKING, VSS. CALL LIGHT WITHIN REACH, WILL CONTINUE TO OBSERVE.
[2020-04-20 06:06] LABS: BASOPHILS 0.2 % (0-2); EOSINOPHILS 5.2 % (0-7); HEMATOCRIT 37.2 % (42.0-54.0); HEMOGLOBIN 10.7 g/dL (13.5-17.5); IMMATURE GRANULOCYTES 0.2 % (0-5); LYMPHOCYTES 18.5 % (15-50); MCH 25.7 pg (26.0-34.0); MCHC 28.8 g/dL (31.0-37.0); MCV 89.4 fL (80.0-100.0); MEAN PLATELET VOLUME 9.2 fL (7.4-10.4); MONOCYTES 10.7 % (2-11); NEUTROPHILS 65.2 % (40-80); PLATELET COUNT 203 10x3/uL (130-400); RBC 4.16 10x6/uL (4.20-6.10); RDW 14.7 % (11.5-14.5); WBC 6.6 10x3/uL (4.8-10.8)
[2020-04-20 06:20] LABS: ANION GAP 2.9 mmol/L (8-16); CALCIUM 9.3 mg/dL (8.5-10.1); CREATININE - SERUM 1.7 mg/dL (0.6-1.3); POTASSIUM - SERUM 3.5 mmol/L (3.5-5.1)
[2020-04-20 06:25] LABS: CARBON DIOXIDE 43.6 mmol/L (21.0-32.0)
--- NOTE | 2020-04-20 09:12 | NUR ---
PO MEDS GIVEN. PT PULLED IV EARLY THIS MORNING. IV ON RIGHT HAND NOT WORKING PROPERLY. ATTEMPTED TO START NEW IV WITH NO SUCCESS. UNABLE TO GIVE LASIX. DR. LINDA LEDESMA. WILL SEE IF IV LASIX CAN BE CHANGED TO PO.
--- NOTE | 2020-04-20 09:50 | NUR ---
Nutrition Follow-up: Eating well overall. Ate 100% x 3 meals yesterday. Diet: Renal ADA PO intake: 88% avg x 5 meals WT: 281.9# (04/17) Last BM: 04/17 per chart Labs noted: K+ 3.5 Meds noted: Pepcid, Lasix, KDur, Protonix, Humalog, NS @ 50, electrolyte protocol -MD may consider liberalizing diet to cardiac carb consistent. -Encourage PO intake and honor food preferences within diet restrictions. -Monitor wt; noted daily wts ordered. -RD following.
--- NOTE | 2020-04-20 09:59 | NUR ---
SPOUSE AT BEDSIDE. SPOKE WITH HER AND PATIENT ABOUT PT BEING COOPERATIVE WITH CARE. SPOKE TO THEM ABOUT COMFORT CARE IF PATIENT DID NOT WANT TO CONTINUE USING BYPAP OR OTHER MEDICAL TREATMENTS. SPOUSE WANTS PT TO CONTINUE WITH CURRENT CARE. PLACED ON BIPAP AT THIS TIME AT 40%. WRIST RESTRAINTS ON. WILL CONTINUE TO MONITOR.
--- NOTE | 2020-04-20 11:54 | NUR ---
MEAL TRAY SET UP. PULLED UP AND REPOSITIONED FOR MEAL. BIPAP OFF. PLACED ON 4L HIGH NC. PT COOPERATIVE AT THIS TIME. WILL CONTINUE TO MONITOR.
--- NOTE | 2020-04-20 12:30 | NUR ---
ATE 100% OF LUNCH. PLACED ON BIPAP AT 40% AT THIS TIME. WILL CONTINUE TO MONITOR.
--- NOTE | 2020-04-20 14:21 | NUR ---
OT NOTE: REMOVED UE RESTRAINTS; BI PAP ON; PRACTICED ROLLING AND POSITIONING; MOD ASSIST WITH ROLLING; EXTENSIVE CUES AND HAND PLACEMENT FOR SCOOTING UP IN BED; PT INITIALLY PULLING ON CATH.. RE APPLIED RESTRAINTS.. PT ORIENTED TO SELF AND PLACE. ANNA LOUIS, OTR/L [phone]
--- NOTE | 2020-04-20 15:46 | NUR ---
PT CONFUSED. PULLING ON COLLIER CATHETER. WRIST RESTRAINTS IN PLACE. ATTEMPTED TO ORIENT PT. STILL CONFUSED. WILL CONTINUE TO MONITOR.
--- NOTE | 2020-04-20 19:00 | NUR ---
PT ASSESSMENT COMPLETED AT THIS TIME, NO CHANGES NOTED FROM NURSE REPORT, PT IS LETHARGIC BUT WILL AWAKE TO LOUD VOICE AND ONLY SHRUGS SHOULDERS FOR ANSWERS. VSS, WILL MONITOR FOR CHANGES IN NEURO STATUS
--- NOTE | 2020-04-20 21:10 | NUR ---
PT AWAKE AND ALERT, PT IS VERY CONFUSED, PT DOES NOT KNOW WHERE HE IS OR WHATS GOING ON. PT ORIENTED, PT STILL STILL CONFUSED ASKING WHERE HE SHOULD GO. WILL MONITOR PATIENT FOR CHANGES
--- NOTE | 2020-04-20 23:00 | NUR ---
PATIENT REASSESSMENT COMPLETE THIS TIME, NO CHANGE NOTED FROM PREVIOUS EXAM. VITAL SIGNS CONTINUE BE STABLE, PATIENT IS MORE ALERT AND ORIENTED TO PERSON, PATIENT IS STILL VERY CONFUSED AND DOES NOT KNOW WHERE HE IS OR WHAT IS GOING ON AT THIS TIME. WILL CONTINUE TO MONITOR FOR CHANGE IN NEUROLOGICAL STATUS. PATIENT REQUESTING SOMETHING TO EAT AND WAS PROVIDED HIS EVENING DINNER TRAY PATIENT IS SETTING UP IN HALF HOURS POSITION AND EATING INDEPENDENTLY NO DISTRESS NOTED.
[2020-04-21] VITALS (28 sets, daily range): BP systolic 87–123; BP diastolic 48–75
--- NOTE | 2020-04-21 01:00 | NUR ---
PT RESTING ON BIPAP, RESP EVEN AND NON LABORED, VSS, WILL MONITOR FOR CHANGES
--- NOTE | 2020-04-21 03:00 | NUR ---
PT REASSESSMENT COMPLETED AT THIS TIME, NO CHANGES NOTED FROM PREVIOUS EXAM, VSS. 0500 PT RESTING WITH EYES CLOSED, NO DISTRESS NOTED, VSS
[2020-04-21 05:49] LABS: BASOPHILS 0.4 % (0-2); EOSINOPHILS 5.4 % (0-7); HEMATOCRIT 36.4 % (42.0-54.0); HEMOGLOBIN 10.5 g/dL (13.5-17.5); IMMATURE GRANULOCYTES 0.2 % (0-5); LYMPHOCYTES 22.8 % (15-50); MCH 25.9 pg (26.0-34.0); MCHC 28.8 g/dL (31.0-37.0); MCV 89.9 fL (80.0-100.0); MEAN PLATELET VOLUME 8.9 fL (7.4-10.4); MONOCYTES 9.2 % (2-11); PLATELET COUNT 194 10x3/uL (130-400); RBC 4.05 10x6/uL (4.20-6.10); RDW 14.9 % (11.5-14.5); WBC 5.6 10x3/uL (4.8-10.8)
[2020-04-21 06:06] LABS: ANION GAP 3.6 mmol/L (8-16); CALCIUM 8.8 mg/dL (8.5-10.1); CARBON DIOXIDE 39.9 mmol/L (21.0-32.0); CREATININE - SERUM 1.6 mg/dL (0.6-1.3); POTASSIUM - SERUM 3.5 mmol/L (3.5-5.1)
--- NOTE | 2020-04-21 10:16 | NUR ---
0700 PT RECIEVED ALERT CONFUSED VSS DENIES PAIN COLLIER DRAINING YELLOW URINE, ON BIPAP AND RESTRAINTS, CALL LIGHT WITHIN REACH PT DENIES ALL NEEDS 0900 TOOK AM MEDS WITHOUT DIFFICULTY AND ATE 25% BREAKFAST
--- NOTE | 2020-04-21 16:48 | NUR ---
1200 ATE 25% LUNCH PER DR LARA AND PT SITTING UPRIGHT IN BED FOR AN HOUR, PT CONTINUALLY USING CALL LIGHT TO ASK WHEN HE CAN LAY BACK AGAIN, INFORMED BY DR OSBORN AND BYSELF THAT HE NEEDS TO SIT UP DURING THE DAY, USE IS TO WORK ON LUNGS [id number] PT ON BIPAP 1630 AND SON HERE FOR VISITATION, SPOKE WITH PT ABOUT DOING MORE FOR HIMSELF TO GET BETTER BY WORKING ON HIS MOVEMENT, FEEDING HIMSELF, DOING BREATHING EXERCISES, ETC
--- NOTE | 2020-04-21 17:05 | NUR ---
1200ASSISTED PT WITH LUNCH ATE 100% 1300 LINEN CHANGE AND CHG BATH DONE 1700 ATE TURKEY SANDWICH FOR DINNER BIPAP ON/OFF Q2 HOURS PER DR MCKEON, PT TOLERATED WELL
--- NOTE | 2020-04-21 19:00 | NUR ---
REPORT RECEIVED. RECEIVED PATIENT IN BED, AWAKE AND ALERT. ORIENTED TO SELF ONLY. SPEECH CLEAR. ON BIPAP. ASSESSMENT COMPLETED PER FLOW SHEET WTIH NO ACUTE DISTRESS OBSERVED. MONITORS CONNECTED TO PATIENT WITH ALARMS SET. VSS. CALL LIGHT IN REACH.
--- NOTE | 2020-04-21 21:00 | NUR ---
AWAKE AND ALERT. PM MEDS TAKEN WITHOUT DIFF. DENIES PAIN. VSS
--- NOTE | 2020-04-21 21:30 | NUR ---
SNACK GIVEN. ATE 100%.
--- NOTE | 2020-04-21 23:00 | NUR ---
AWAKE AND ALERT. ON BIPAP. REASSESSMENT COMPLETED PER FLOW SHEET WITH NO ACUTE DISTRESS OBSERVED. VSS
[2020-04-22] VITALS (22 sets, daily range): BP systolic 82–170; BP diastolic 53–143
--- NOTE | 2020-04-22 01:00 | NUR ---
AWAKE AND ALERT. VSS
--- NOTE | 2020-04-22 03:00 | NUR ---
REASSESSMENT COMPLETED PER FLOW SHEET WITH NO ACUTE DISTRESS OBSERVED. VSS. ON BIPAP. CALL LIGHT IN REACH
--- NOTE | 2020-04-22 05:00 | NUR ---
RESTING WITH EYES CLOSED, EASILY ROUSED AND ALERT. ON BIPAP. VSS. CALL LIGHT IN REACH
[2020-04-22 06:23] LABS: BASOPHILS 0.2 % (0-2); HEMATOCRIT 33.5 % (42.0-54.0); HEMOGLOBIN 9.7 g/dL (13.5-17.5); IMMATURE GRANULOCYTES 0.2 % (0-5); LYMPHOCYTES 24.8 % (15-50); MCH 25.5 pg (26.0-34.0); MONOCYTES 12.1 % (2-11); NEUTROPHILS 57.7 % (40-80); PLATELET COUNT 178 10x3/uL (130-400); RBC 3.81 10x6/uL (4.20-6.10); RDW 14.7 % (11.5-14.5); WBC 5.6 10x3/uL (4.8-10.8)
[2020-04-22 06:30] LABS: MCV 87.9 fL (80.0-100.0)
[2020-04-22 06:52] LABS: ANION GAP 4.8 mmol/L (8-16); CALCIUM 8.9 mg/dL (8.5-10.1); CREATININE - SERUM 1.4 mg/dL (0.6-1.3); PHOSPHOROUS 3.4 mg/dL (2.5-4.9); POTASSIUM - SERUM 3.2 mmol/L (3.5-5.1)
[2020-04-22 06:53] LABS: CARBON DIOXIDE 40.4 mmol/L (21.0-32.0)
--- NOTE | 2020-04-22 08:15 | NUR ---
RESTRAINTS OFF AND PT IS FEEDING SELF.K+ REPLACED.
--- NOTE | 2020-04-22 09:57 | NUR ---
PT FED SELF BREAKFAST AND BIPAP PLACED ORDERED. RESTRAINTS OFF. PT VERB UNDERSTANDING OF NOT PULLING AT MASK. CALL LIGHT IN REACH.
--- NOTE | 2020-04-22 13:52 | NUR ---
PT OOB TO CHAIR OVER AN HOUR. BACK TO BED WITH WALKER. BIPAP PLACED FOR [address] MCKEON HERE ON ROUNDS.
--- NOTE | 2020-04-22 18:05 | NUR ---
1700-PT OOB TO BSC. PT HAD LG BM. PT TO CHAIR FOR DINNER. PT BACK TO BED AND IS ATTEMPTING TO GET OOB AND IS MORE CONFUSED. BIPAP PLACED.
--- NOTE | 2020-04-22 18:44 | NUR ---
PT VERY CONFUSED. COMMING OUT OF BED. BED ALARM SOUNDING. PT PULLING BIPAP OFF. ASSISTED BACK TO BED AND POSITIONED FOR COMFORT. PT CONTINUES TO BE CONFUSED AND PULL OFF O2 AND BIPAP. BUE WRIST RESTRAINTS APPLIED ORDERED. PT MARIZA WELL.
--- NOTE | 2020-04-22 19:00 | NUR ---
PATIENT RESTING IN BED WITH NO S/S OF DISTRESS. VSS. ASSISTED PATIENT REPOSITIONING IN BED WITH YURI SUMMERS PER THE PATIENT'S REQUEST. PATIENT DENIES OTHER NEEDS AT THIS TIME. BED IN LOWEST POSITION AND CALL LIGHT WITHIN REACH. ENCOURAGED THE PATIENT TO CALL IF SHE HAS NEEDS. WILL CONTINUE TO MONITOR.
--- NOTE | 2020-04-22 19:00 | NUR ---
PATIENT RESTING IN BED WITH NO S/S OF DISTRESS AND DENIES NEEDS AT THIS TIME. VSS. BED IN LOWEST POSITION AND CALL LIGHT WITHIN REACH. ENCOURAGED THE PATIENT TO CALL IF HE HAS NEEDS. WILL CONTINUE TO MONITOR.
--- NOTE | 2020-04-22 21:36 | NUR ---
ADMINISTERED MEDS PER ORDERS. PATIENT DENIES OTHER NEEDS. WILL CONTINUE TO MONITOR.
--- NOTE | 2020-04-22 23:00 | NUR ---
PATIENT IS STILL CONFUSED AT THIS TIME, HOWEVER, COOPERATIVE. BROUGHT PATIENT WATER PER HIS REQUEST. PATIENT DENIES OTHER NEEDS AT THIS TIME. BED IN LOWEST POSITION AND CALL LIGHT WITHIN REACH. WILL CONTINUE TO MONITOR.
--- NOTE | 2020-04-22 23:00 | NUR ---
PATIENT RESTING IN BED WITH NO S/S OF DISTRESS. ASSISTED PATIENT REPOSITIONING PILLOWS PER HER REQUEST. PATIENT DENIES OTHER NEEDS AT THIS TIME. BED IN LOWEST POSITION AND CALL LIGHT WITHIN REACH. ENCOURAGED THE PATIENT TO CALL IF SHE HAS NEEDS. WILL CONTINUE TO MONITOR.
[2020-04-23] VITALS (23 sets, daily range): BP systolic 98–141; BP diastolic 44–85
--- NOTE | 2020-04-23 | NUR ---
PATIENT INCREASINGLY CONFUSED AND AGITATED AT THIS TIME. PATIENT HAS PULLED OFF BIPAP MASK AND BROKEN IT. PATIENT IS ALSO STATING HE IS GOING TO PULL OUT HIS COLLIER. EXPLAINED TO THE PATIENT THE IMPORTANCE OF WEARING THE BIPAP AND KEEPING IN HIS COLLIER CATH. PATIENT VERBALIZED UNDERSTANDING AND AGREED TO RESTRAINTS AND BIPAP. GAVE PATIENT WATER AND PULLED PATIENT UP IN BED PRIOR TO PLACING ON BIPAP. PATIENT DENIES OTHER NEEDS AT THIS TIME. BED IN LOWEST POSITION AND CALL LIGHT WITHIN REACH. ENCOURAGED THE PATIENT TO CALL IF HE HAS NEEDS. WILL CONTINUE TO MONITOR.
--- NOTE | 2020-04-23 01:00 | NUR ---
PATIENT RESTING IN BED WITH EYES CLOSED AND BIPAP ON. NO S/S OF DISTRESS. VSS. WILL CONTINUE TO MONITOR.
--- NOTE | 2020-04-23 03:00 | NUR ---
PATIENT RESTING IN BED WITH NO S/S OF DISTRESS AND DENIES NEEDS AT THIS TIME. BED IN LOWEST POSITION AND CALL LIGHT WITHIN REACH. ENCOURAGED THE PATIENT TO CALL IF HE HAS NEEDS. WILL CONTINUE TO MONITOR.
--- NOTE | 2020-04-23 05:00 | NUR ---
ASSISTED PATIENT REPOSITIONING IN BED. GAVE PATIENT ICE WATER. PATIENT DENIES OTHER NEEDS. VSS. ENCOURAGED PATIENT TO CALL IF HE HAS NEEDS. WILL CONTINUE TO MONITOR.
--- NOTE | 2020-04-23 06:15 | NUR ---
CHG BATH COMPLETED
--- NOTE | 2020-04-23 09:07 | NUR ---
0700 PT RECIEVED ALERT CONFUSED TO TIME AND SITUATION, EASILY REORIENTED, VSS DENIES PAIN, WHILE IN RESTRAINTS ATTEMPTING TO REMOVE O2 AND MONITORING EQUIPMENT, COLLIER DRAINING YELLOW URINE, CALL LIGHT WITHIN REACH 0800 ASSISTED WITH BREAKFAST, ATE 100% 0900 ASSISTED OBN BEDPAN THEN OFF OF BEDPAN, NO BM NOTED
--- NOTE | 2020-04-23 11:17 | NUR ---
Nutrition Follow-up: Remains confused but eating well. Ate 100% this AM. Diet: Renal ADA PO intake: 100% x last 4 meals WT: 257# (04/23); 281.9# (04/17); 254.6# (04/21) Last BM: 04/22 Labs noted: Glu 104, K+ 3.6 (04/22), PO4 3.4 (04/22) Meds noted: Lasix, KDur, Pepcid, Protonix, Humalog, electrolyte protocol -MD may consider liberalizing to cardiac carb consistent diet. -Monitor wt. -RD following.
--- NOTE | 2020-04-23 16:05 | NUR ---
OT NOTE: (AM) PT COMPLETED BED MOB WITH MOD A. PT COMPLETED SELF FEEDING WITH SETUP. (PM) PT REQUIRED MAX A WITH BED MOB TASKS. PT COMPLETED UE AROM AXS. [phone] THANK YOU,VALERIO SAINI
--- NOTE | 2020-04-23 17:58 | NUR ---
1200 ASSISTED PT WITH LUNCH 1630 ASSISTED WITH DINNER REPOSITIONED Q2 HOURS, PT CONTINUALLY PULLING AT MONITORING EQUIPMENT, O2 AND COLLIER DESPITE REOREINTATION AND RESTRAINTS
--- NOTE | 2020-04-23 18:31 | NUR ---
PT BROKE BIPAP MASK, RT AWARE, NC APPLIED
--- NOTE | 2020-04-23 19:30 | NUR ---
PT ALERT, CONFUSED, LUNGS CLEAR, O2 @ 4L VIA N/C, SWR IN USE, COLLIER PATENT TO BSD, PT IS DIFFICULT TO REDIRECT AT THIS TIME
--- NOTE | 2020-04-23 21:10 | NUR ---
PT CONFUSED, THINKS HE IS IN [place], PULLING AT RESTRAINTS, PULLING AT TELEMETRY AND GOWN, UNABLE TO REDIRECT
--- NOTE | 2020-04-23 22:30 | NUR ---
PT HAD BM, BATHED AND LINENS CHANGED, PT COOPERATIVE WITH BATH, VITALS STABLE
[2020-04-24] VITALS (20 sets, daily range): BP systolic 96–153; BP diastolic 51–96
--- NOTE | 2020-04-24 01:00 | NUR ---
PT SLEEPING WITH NO DISTRESS NOTED, VITALS STABLE
--- NOTE | 2020-04-24 03:15 | NUR ---
PT AWAKE, CONFUSED, EASILY REDIRECTED, REMAINS IN SWR, WILL CONT TO MONITOR
--- NOTE | 2020-04-24 05:15 | NUR ---
PT SLEEPING WITH NO DISTRESS, AWAKENS PERIODICALLY, NO DISTRESS NOTED
[2020-04-24 06:18] LABS: BASOPHILS 0.2 % (0-2); EOSINOPHILS 6.5 % (0-7); HEMATOCRIT 36.5 % (42.0-54.0); HEMOGLOBIN 10.8 g/dL (13.5-17.5); IMMATURE GRANULOCYTES 0.2 % (0-5); LYMPHOCYTES 21.4 % (15-50); MCHC 29.6 g/dL (31.0-37.0); MCV 87.7 fL (80.0-100.0); MEAN PLATELET VOLUME 9.3 fL (7.4-10.4); MONOCYTES 8.9 % (2-11); NEUTROPHILS 62.8 % (40-80); PLATELET COUNT 175 10x3/uL (130-400); RBC 4.16 10x6/uL (4.20-6.10); RDW 14.8 % (11.5-14.5); WBC 6.3 10x3/uL (4.8-10.8)
[2020-04-24 06:32] LABS: ALBUMIN 2.9 g/dL (3.4-5.0); ANION GAP 7.4 mmol/L (8-16); BILIRUBIN - TOTAL 0.5 mg/dL (0.2-1.3); CALCIUM 9.3 mg/dL (8.5-10.1); CARBON DIOXIDE 36.5 mmol/L (21.0-32.0); CREATININE - SERUM 1.3 mg/dL (0.6-1.3); MAGNESIUM - SERUM 2.3 mg/dL (1.8-2.4); POTASSIUM - SERUM 3.9 mmol/L (3.5-5.1); PROTEIN - SERUM 7.8 g/dL (6.4-8.2)
--- NOTE | 2020-04-24 10:00 | NUR ---
0700 PT RECIEVED ALERT, CONFUSED, EASILY REORIENTED, VSS, HAS PULLED OFF O2 AND PULSE OX, REPLACED AND IMPORTANCE EXPLAINED, COLLIER DRAINING YELLOW URINE 0800 ASSISTED WITH BREAKFAST ATE 100% 0900 TOOK AM MEDS WITHOUT DIFFICULTY
--- NOTE | 2020-04-24 14:13 | NUR ---
PULLED UP AND REPOSITIONED FOR COMFORT. WRIST RESTRAINTS IN PLACE PER ORDER. WILL CONTINUE TO MONITOR.
--- NOTE | 2020-04-24 14:45 | NUR ---
ASSISTED PT ONTO BEDPAN. NO STOOL NOTED. PT REMAINS CONFUSED BUT IN GOOD SPIRITS AT THIS TIME. PARTIAL LINEN CHANGE PROVIDED. ROOM TEMP DECREASED PER PT REQUEST. WRIST RESTRAINTS IN PLACE. WILL CONTINUE TO MONITOR.
--- NOTE | 2020-04-24 14:54 | NUR ---
OT NOTE: (AM) PT COMPLETED SUPINE TO SIT WITH MOD A. PT COMPLETED ADL MOB WITH CGA AND RW. PT COMPLETED UE AROM AX WITH WALKER MANAGEMENT. PT COMPLETED FACE/HAND HYGIENE WITH SETUP. PT CONFUSED AND REQUIRED REDIRECTION. (PM) PT COMPLETED UE AROM EX. PT COMPLETED FACE HYGIENE WITH SETUP. PT COMPLETED REPOSITIONING WITH MOD A. PT REQUIRED CUES FOR TASKS SEQUENCING AND STEPS. [phone] THEE ALMONTE COTA
--- NOTE | 2020-04-24 17:09 | NUR ---
PT RESTING COMFORTABLY. WRIST RESTRAINTS OFF AT THIS TIME FOR MEAL. SPOUSE AT BEDSIDE. WILL CONTINUE TO MONITOR.
--- NOTE | 2020-04-24 20:20 | NUR ---
PT ATTEMPTING TO GET UP AND PULLING LINES AND TUBES, WITH RESTRAINTS ON. ATTEMPTED TO KICK THIS NURSE WHEN ASSISTING HIM WITH UNTANGLING HIS GOWN FROM LINES AND TUBES, N/C OFF AND SPO2 DROPPING TO UPPER 80'S. ATTEMPTED TO REORIENT PT WITHOUT SUCCESS. PRN HALDOL GIVEN AT 2020 WITH ORAL MEDICATIONS WHICH HE ATTEMPTED TO SPIT OUT. ABLE TO GET PATIENT TO TAKE MEDICATIONS. PT CALM, REMAINS CONFUSED AND SLIDING FEET OUT OF BED AND YELLING OUT FOR HELP. WILL CONTINUE TO OBSERVE.
--- NOTE | 2020-04-24 22:49 | NUR ---
PT ON BIPAP 05/06 40%. TOLERATING WELL AT THIS TIME. WILL CONTINUE TO OBSERVE
[2020-04-25] VITALS (15 sets, daily range): BP systolic 88–158; BP diastolic 48–94
[2020-04-25 06:13] LABS: BASOPHILS 0.1 % (0-2); EOSINOPHILS 4.6 % (0-7); HEMATOCRIT 36.3 % (42.0-54.0); HEMOGLOBIN 10.7 g/dL (13.5-17.5); IMMATURE GRANULOCYTES 0.1 % (0-5); LYMPHOCYTES 16.4 % (15-50); MCH 25.6 pg (26.0-34.0); MCHC 29.5 g/dL (31.0-37.0); MCV 86.8 fL (80.0-100.0); MEAN PLATELET VOLUME 9.8 fL (7.4-10.4); NEUTROPHILS 71.8 % (40-80); PLATELET COUNT 182 10x3/uL (130-400); RBC 4.18 10x6/uL (4.20-6.10); RDW 14.9 % (11.5-14.5)
[2020-04-25 06:26] LABS: WBC 8.3 10x3/uL (4.8-10.8)
[2020-04-25 07:01] LABS: ANION GAP 6.2 mmol/L (8-16); BILIRUBIN - TOTAL 0.63 mg/dL (0.2-1.3); CALCIUM 9.5 mg/dL (8.5-10.1); CARBON DIOXIDE 36.8 mmol/L (21.0-32.0); CREATININE - SERUM 1.3 mg/dL (0.6-1.3); MAGNESIUM - SERUM 2.3 mg/dL (1.8-2.4); PHOSPHOROUS 4.1 mg/dL (2.5-4.9); PROTEIN - SERUM 7.9 g/dL (6.4-8.2)
--- NOTE | 2020-04-25 07:30 | NUR ---
PATIENT REORIENTATED TO PLACE, HE CAN TELL WHY HE IS HERE FOR LEGS AND BREATHING. VERY CONFUSED TIME AND PLACE. MAKING STATES THAT DO NOT MAKE ANY SENSE, SEEING PEOPLE IN ROOM THAT ARE NOT THERE. BREAKFAST TRAY SET UP , RESTRAINTED TO ALLOW PATIENT TO FEED SELF. WILL FEED SELF ALL OF TRAY.
--- NOTE | 2020-04-25 09:00 | NUR ---
PATIENT FOUND WITHOUT OXYGEN OFF, PULSE IN 86%. PATIENT PULLED ALL LINES OFF INCLUDING GOWN. PULLING ON COLLIER. RESTRAINTED TO KEEP OXYGEN ON. PATIENT RESTLESS. WANTING TO GO HOME. HALDOL 2 MG IM GIVEN
--- NOTE | 2020-04-25 10:22 | NUR ---
Nutrition Follow-up: Eating well. Diet: Renal ADA PO intake: 100% Wt: 249.1# (04/24); 254.9# (04/21); 212.7# (04/14); 268# (04/06); noted I/Os (-1510 cc on 04/24, -2300 cc on 04/23) Labs reviewed Meds noted: Lasix, KDur, Pepcid, Protonix, electrolyte protocol -Monitor wt. -RD following.
--- NOTE | 2020-04-25 10:54 | NUR ---
PHYSICAL THERAPY AMBULATED PATIENT IN [place], SAT PATIENT UP IN CHAIR AT BEDSIDE. FOUND PATIENT STANDING STATES HE IS GOING HOME. 2 NURSES WITH GREAT AMOUNT OF EFFORT PUT PATIENT BACK IN BED FOR SAFETY. PATIENT TOO CONFUSED TO UNDERSTAND, HE IS VERY UNSTEADY ON FEET. PATIENT CAN NOT HARDLY MOVE LEGS. RESTRAINTS APPLIED TO KEEP OXYGEN ON. PATIENT CONTINUES PULLS OFF OXYGEN AND PULLS ON ALL LINES. PATIENT WILL DE SAT INTO 80'S WHEN OXYGEN IS REMOVED. PATIENT STILL RESTLESS AND ALL OVER THE BED. SCREAMING FOR HELP. WORKING HEART RATE INTO 120'S.
--- NOTE | 2020-04-25 12:00 | NUR ---
LESS AGITATED. NAPPING AT INTERVALS. NOT SCREAMING OUT MUCH.
--- NOTE | 2020-04-25 14:04 | PN ---
PATIENT:CURLY CROWLEY MEDICAL RECORD: [id number] LOCATION:[facility].CV0 ADMISSION DATE: 04/05/20 PROGRESS NOTE DATE OF SERVICE: 04/24/2020 SUBJECTIVE: The patient's case was discussed with staff. He has no new complaint. OBJECTIVE: The patient is quite confused and disorganized. He is uncooperative with treatment and will not keep his BiPAP on. He has a critically high CO2 level of 75. ASSESSMENT: Delirium. PLAN: This patient presents a significant management challenge. He is experiencing respiratory failure with carbon dioxide retention and I believe that is the primary source of his confusion and agitation. Unfortunately, the medications that would relieve some of his confused, agitated behavior may also exacerbate the respiratory issue. I realize that in complex cases that often the best balance of relative good and bad effects of therapies are in play. I do not have a clear solution. I would recommend that if his behaviors are disruptive in a way that is not really manageable that he be given a low dose of an antipsychotic. I am going to order a low dose of Haldol that may be administered either IM or IV for the agitated behavior. I will avoid the use of a benzodiazepine because of its potential to suppress respiration and I will be happy to see him periodically during the course of this stay here. TRANSINT:[id number] Voice Confirmation ID: [id number] DOCUMENT ID: [id number] LAVERNE SOLIS MD at 1404 CC: [id number] DICTATION DATE: 04/24/20 1556 PROCUREMENT REPRESENTATIVE: 04/25/20 0238 ADM IN [place] [id number] [place] [address]
--- NOTE | 2020-04-25 15:00 | NUR ---
OT NOTE: PT COMPLETED BED MOB WITH MOD/MAX A. PT COMPLETED SUPINE TO SIT WITH MOD A. PT COMPLETED EOB SITTING WITH SBA/CGA. PT COMPLETED ADL MOB WITH RW AND REQUIRED EXTENSIVE VERBAL CUES FOR DIRECTIONAL WALKER MANAGEMENT. PT COMPLETED BUE AROM AXS. [phone] THANK YOU,VALERIO SAINI
--- NOTE | 2020-04-25 15:45 | NUR ---
PULLED COLLIER CATH FROM STAT LOCK, REPLACE ELECTROS. RESTRAINTS RETIED. PATIENT STILL OCC SCREAMS OUT. STILL VERY CONFUSED.
--- NOTE | 2020-04-25 17:00 | NUR ---
ATE WELL DINNER TRAY. RIGHT WRIST RESTRAINT REMOVED TO ALLOW PATIENT TO FEED SELF. PATIENT DOES ASK FOR A "BEER" SEVERAL TIMES DURING THE DAY.
--- NOTE | 2020-04-25 18:23 | NUR ---
PATIENT PULLING ON COLLIER, PULLED EKG LEADS OFF. WILL PULL ON COLLIER, THEN SCREAMS BECAUSE IT HURTS.
--- NOTE | 2020-04-25 19:25 | NUR ---
PT TRANSFERRED FROM CVICU TO ICU WITHOUT DIFFICULTY. ASSESSMENT COMPLETED, SEE FLOWSHEET. WILL CONTINUE TO MONITOR.
--- NOTE | 2020-04-25 21:00 | NUR ---
PT RESTING IN BED, NO ACUTE DISTRESS NOTED.
--- NOTE | 2020-04-25 23:00 | NUR ---
PT ASSISTED TO BESIDE COMMODE. LARGE SOLID BM NOTED.
[2020-04-26] VITALS (23 sets, daily range): BP systolic 85–160; BP diastolic 46–103
--- NOTE | 2020-04-26 01:00 | NUR ---
PT RESTLESS, ATTEMPTED TO GET OUT OF BED. WILL CONTINUE TO MONITOR.
--- NOTE | 2020-04-26 03:00 | NUR ---
REASSESSMENT COMPLETED, SEE FLOWSHEET. PT RESTING IN BED AT THIS TIME.
[2020-04-26 03:44] LABS: BASOPHILS 0.1 % (0-2); EOSINOPHILS 1.2 % (0-7); HEMATOCRIT 35.2 % (42.0-54.0); HEMOGLOBIN 10.6 g/dL (13.5-17.5); IMMATURE GRANULOCYTES 0.2 % (0-5); LYMPHOCYTES 12.2 % (15-50); MCH 25.7 pg (26.0-34.0); MCHC 30.1 g/dL (31.0-37.0); MCV 85.2 fL (80.0-100.0); MEAN PLATELET VOLUME 9.6 fL (7.4-10.4); MONOCYTES 5.9 % (2-11); NEUTROPHILS 80.4 % (40-80); PLATELET COUNT 180 10x3/uL (130-400); RBC 4.13 10x6/uL (4.20-6.10); RDW 14.8 % (11.5-14.5)
[2020-04-26 03:47] LABS: WBC 13.9 10x3/uL (4.8-10.8)
[2020-04-26 04:09] LABS: ANION GAP 6.8 mmol/L (8-16); BILIRUBIN - TOTAL 1.28 mg/dL (0.2-1.3); CALCIUM 9.3 mg/dL (8.5-10.1); CARBON DIOXIDE 35.4 mmol/L (21.0-32.0); CREATININE - SERUM 1.6 mg/dL (0.6-1.3); MAGNESIUM - SERUM 2.1 mg/dL (1.8-2.4); PHOSPHOROUS 4.3 mg/dL (2.5-4.9); POTASSIUM - SERUM 4.2 mmol/L (3.5-5.1)
--- NOTE | 2020-04-26 05:00 | NUR ---
PT RESTING IN BED, DISORIENTED TO TIME AND SITUATION. WILL CONTINUE TO MONITOR.
--- NOTE | 2020-04-26 07:15 | NUR ---
REPORT RECEIVED. PT CONFUSED. ORIENTED TO SELF AND PLACE BUT NOT TIME OR LOCATION. PT IS IN SOFT WRIST RESTRAINTS. HAS A COLLIER IN PLACE. SMALL INCISION TO LEFT FOREHEAD. DRY, FLAKING LEFT LEG. PT IS ON 5L OXYMIZER. VSS. WILL CONTINUE TO MONITOR. CALL LIGHT IN REACH.
--- NOTE | 2020-04-26 08:35 | NUR ---
PT ATE MOST OF HIS BREAKFAST. TOOK HIS MEDICATIONS WITH NO PROBLEMS. PT LEFT OUT OF RESTRAINTS. INSTRUCTED NOT TO TRY TO GET UP AND TO NOT PULL HIS CATHETER. PT VERBALIZED UNDERSTANDING. CALL LIGHT IN REACH. WILL CONTINUE TO MONITOR.
--- NOTE | 2020-04-26 09:30 | NUR ---
PHYSICAL THERAPY WORKING WITH PT.
--- NOTE | 2020-04-26 11:18 | MORECARE ---
CASE MANAGEMENT DISCHARGE SUMMARY PATIENT: CURLY CROWLEY UNIT: [id number] ADM DATE: 04/05/20 AGE: 64 : 51 SEX: M ROOM/BED: D.2303 AUTHOR: MAT,DOC PHYSICIAN: REFERRING PHYSICIAN: CLAYTON FOWLER MD DATE OF SERVICE: 04/26/20 Discharge Plan Patient Name: CURLY CROWLEY Facility: [facility]:[place] : 1955 Planned Disposition: Anticipated Discharge Date: Discharge Date: Expected LOS: Initial Reviewer: [email or web address] Initial Review Date: 04/05/2020 Generated: 04/26/20 12:18 pm Comments DCP- Discharge Planning Updated by [email or web address]: Carmella Ramos on 04/26/20 10:[address] CM contacted Elli to make sure they had received consult. CM faxed order to [phone]. Awaiting consult to see if patient can discharge to [facility]. CM will continue to follow and assist as needed with discharge planning / needs. DCP- Discharge Planning Updated by [email or web address]: Carmella Ramos on 04/18/20 3:[address] Patient Name: CURLY CROWLEY Admission Status: ER Accout number: [id number] Admission Date: 04-05-2020 : 1955 Admission Diagnosis:ALTERED MENTAL STATUS, UNSPECIFIED Attending: CLAYTON FOWLER Current LOS: 13 Anticipated DC Date: Planned Disposition: Primary Insurance: [employer] Discharge Planning Comments: CM called and spoke with patient's spouse Slime to complete initial dc planning assessment. CM educated Slime on the CM role and verbal consent given by patient to complete assessment. Patient lives at home with family. Patient is independent. At discharge patient plans to return home and feels this is a safe discharge. CM discussed availability of home health, rehab services, and medical equipment. Patient has [facility] and they plan to resume care when discharged. SALLY signed. Slime would like [facility] IP rehab if patient will qualify. No preference in DME if patient requires 02 @ discharge. Patient will have family to transport home. Patient denied known discharge needs at this time. CM will continue to follow and will assist as needed with dc plans/needs. Perl Software Engineer: Carmelal Ramos DCP- Discharge Planning Updated by [email or web address]: Rhonda Colon on 04/17/20 8:[address] CM called patient's at [phone] to discuss discharge planning/needs. I reached a voice mail and left a message to return my call. DCP- Discharge Planning Updated by [email or web address]: Carmellaneema Beltranr on 04/11/20 7:[address] CM RECIEVED A MESSAGE FROM YAYO BURNETT CM WITH [employer] CALLED AND LEFT HER INFORMATION IF PATIENT NEEDS ANY HELP WITH DISCHARGE PLANS [phone]. DCPIA - Discharge Planning Initial Assessment Updated by [id number]: Carmella Beltranr on 04/18/20 4:33 pm * Is the patient Alert and Oriented? Yes * How many steps to enter\exit or inside your home? * PCP ARIAS * Pharmacy [facility] * Preadmission Environment Home with Family * ADLs Independent * Equipment Walker * Other Equipment LIFT CHAIR * List name and contact numbers for known caregivers / representatives who currently or will assist patient after discharge: SLIME CROWLEY - SPOUSE - [phone] * Verbal permission to speak to the caregivers and representatives has been obtained from the patient. Yes * Community resources currently utilized Home Health * Please name any agencies selected above. [facility] * Additional services required to return to the preadmission environment? Yes * Can the patient safely return to the preadmission environment? No * Has this patient been hospitalized within the prior 30 days at any hospital? Yes Last DP export: 04/18/20 3:54 p Patient Name: CURLY CROWLEY Page [id number] at 1118 All edits/amendments must be made on the electronic document DICTATION DATE: 04/26/20 1118 CONSTRUCTION SALES REPRESENTATIVE: GARY 04/26/20 1118 RPT#: [id number] [place] DATE: STATUS: ADM IN [facility] [address] [place] [address] END OF REPORT
--- NOTE | 2020-04-26 11:30 | NUR ---
PT RESTING QUIETLY. BIPAP ON PT. VSS. WILL CONTINUE TO MONITOR.
--- NOTE | 2020-04-26 12:18 | NUR ---
OT NOTE: PT COMPLETED SUPNE TO SIT WITH MOD/MIN A. PT COMPLETED ALD MOB WITH CGA. PT COMPLETED FACE HYGIENE WITH SETUP. PT COMPLETED UE AROM EXS. [id number] THANK YOU,VALERIO SAINI
--- NOTE | 2020-04-26 12:29 | NUR ---
BLOOD SUGAR 146. NO COVERAGE NEEDED. AT BEDSIDE. WILL CONTINUE TO MONITOR.
--- NOTE | 2020-04-26 20:05 | MORECARE ---
CASE MANAGEMENT DISCHARGE SUMMARY PATIENT: CURLY CROWLEY UNIT: [id number] ADM DATE: 04/05/20 AGE: 64 : 53 SEX: M ROOM/BED: D.2303 AUTHOR: MAT,DOC PHYSICIAN: REFERRING PHYSICIAN: CLAYTON FOWLER MD DATE OF SERVICE: 04/26/20 Discharge Plan Patient Name: CURLY CROWLEY Facility: [facility]:[place] : 1955 Planned Disposition: Anticipated Discharge Date: Discharge Date: Expected LOS: Initial Reviewer: [email or web address] Initial Review Date: 04/05/2020 Generated: 04/26/20 9:04 pm Comments DCP- Discharge Planning Updated by [email or web address]: Carmella Ramos on 04/26/20 10:[address] CM contacted Elli to make sure they had received consult. CM faxed order to [phone]. Awaiting consult to see if patient can discharge to [facility]. CM will continue to follow and assist as needed with discharge planning / needs. DCP- Discharge Planning Updated by [email or web address]: Carmella Ramos on 04/18/20 3:[address] Patient Name: CURLY CROWLEY Admission Status: ER Accout number: [id number] Admission Date: 04-05-2020 : 1955 Admission Diagnosis:ALTERED MENTAL STATUS, UNSPECIFIED Attending: CLAYTON FOWLER Current LOS: 13 Anticipated DC Date: Planned Disposition: Primary Insurance: [employer] Discharge Planning Comments: CM called and spoke with patient's spouse Slime to complete initial dc planning assessment. CM educated Slime on the CM role and verbal consent given by patient to complete assessment. Patient lives at home with family. Patient is independent. At discharge patient plans to return home and feels this is a safe discharge. CM discussed availability of home health, rehab services, and medical equipment. Patient has [facility] and they plan to resume care when discharged. SALLY signed. Slime would like [facility] IP rehab if patient will qualify. No preference in DME if patient requires 02 @ discharge. Patient will have family to transport home. Patient denied known discharge needs at this time. CM will continue to follow and will assist as needed with dc plans/needs. Notched Blade Loader: Carmella Ramos DCP- Discharge Planning Updated by [email or web address]: Rhonda Colon on 04/17/20 8:[address] CM called patient's at [phone] to discuss discharge planning/needs. I reached a voice mail and left a message to return my call. DCP- Discharge Planning Updated by [email or web address]: Carmella Richard on 04/11/20 7:[address] CM RECIEVED A MESSAGE FROM YAYO BURNETT CM WITH [employer] CALLED AND LEFT HER INFORMATION IF PATIENT NEEDS ANY HELP WITH DISCHARGE PLANS [phone] EXT [phone]. DCPIA - Discharge Planning Initial Assessment Updated by [id number]: Carmella Richard on 04/18/20 4:33 pm * Is the patient Alert and Oriented? Yes * How many steps to enter\exit or inside your home? * PCP HUGO * Pharmacy [facility] * Preadmission Environment Home with Family * ADLs Independent * Equipment Walker * Other Equipment LIFT CHAIR * List name and contact numbers for known caregivers / representatives who currently or will assist patient after discharge: SLIME CROWLEY - SPOUSE - [phone] * Verbal permission to speak to the caregivers and representatives has been obtained from the patient. Yes * Community resources currently utilized Home Health * Please name any agencies selected above. [facility] * Additional services required to return to the preadmission environment? Yes * Can the patient safely return to the preadmission environment? No * Has this patient been hospitalized within the prior 30 days at any hospital? Yes Last DP export: 04/26/20 10:18 am Patient Name: CURLY CROWLEY Page 64049 at 2005 All edits/amendments must be made on the electronic document DICTATION DATE: 04/26/202003 PRODUCE SORTER: GARY 04/26/20 2004 RPT#: [id number] VT DATE: STATUS: ADM IN [facility] [address] [place] [address] END OF REPORT
[2020-04-27] VITALS (13 sets, daily range): BP systolic 90–143; BP diastolic 40–83
[2020-04-27 03:34] LABS: BASOPHILS 0.1 % (0-2); EOSINOPHILS 1.2 % (0-7); HEMATOCRIT 33.9 % (42.0-54.0); HEMOGLOBIN 10.1 g/dL (13.5-17.5); IMMATURE GRANULOCYTES 0.3 % (0-5); LYMPHOCYTES 7.7 % (15-50); MCH 25.4 pg (26.0-34.0); MCHC 29.8 g/dL (31.0-37.0); MCV 85.2 fL (80.0-100.0); MEAN PLATELET VOLUME 9.9 fL (7.4-10.4); MONOCYTES 6.8 % (2-11); NEUTROPHILS 83.9 % (40-80); PLATELET COUNT 215 10x3/uL (130-400); RBC 3.98 10x6/uL (4.20-6.10); RDW 14.6 % (11.5-14.5); WBC 15.5 10x3/uL (4.8-10.8)
[2020-04-27 03:55] LABS: ALBUMIN 2.8 g/dL (3.4-5.0); ANION GAP 7.2 mmol/L (8-16); BILIRUBIN - TOTAL 1.11 mg/dL (0.2-1.3); CARBON DIOXIDE 32.7 mmol/L (21.0-32.0); CREATININE - SERUM 1.6 mg/dL (0.6-1.3); PHOSPHOROUS 3.3 mg/dL (2.5-4.9); POTASSIUM - SERUM 3.9 mmol/L (3.5-5.1); PROTEIN - SERUM 7.8 g/dL (6.4-8.2)
--- NOTE | 2020-04-27 07:21 | NUR ---
1900 - REPORT RECEIVED, PT DISORIENTED TO TIME AND SITUATION. REORIENTED NEEDED. ASSESSMENT COMPLETED, SEE FLOWSHEET. WILL CONTINUE TO MONITOR. 2100 - NO CHANGES IN STATUS. 2300 - REASSESSMENT COMPLETED, SEE FLOWSHEET. 0100 - PT REMOVING MONITORING EQUIPMENT CONSTANTLY. REORIENTED NEEDED. 0300 - REASSESSMENT COMPLETED, CONTINUES TO REMOVE EQUIPMENT. 0500 - PT ATTEMPTING TO GET OUT OF BED, REORIENTED NEEDED.
--- NOTE | 2020-04-27 07:32 | NUR ---
Nutrition follow-up: Diet: renal ada PO intake 100% of most meals Labs reviewed Waiting of geripsych placement Wt: 250# RDN following
--- NOTE | 2020-04-27 07:35 | NUR ---
PT RECEIVED AWAKE AND ALERT, NOT ORIENTED. STAFF ASSISTED TO CHAIR. EATING BREAKFAST. WANTING TO GET UP AND WALK BUT HE DOESN'T KNOW WHERE.
--- NOTE | 2020-04-27 09:06 | NUR ---
PT SITTING UP IN CHAIR AFTER WALKING WITH THERAPY.
--- NOTE | 2020-04-27 09:27 | NUR ---
PT ASSIST BACK TO BED, BIPAP APPLIED BY RT.
--- NOTE | 2020-04-27 10:12 | NUR ---
COLLIER REMOVED, URINAL AT BEDSIDE. RT IN ROOM CHECKING ABG.
--- NOTE | 2020-04-27 12:00 | NUR ---
PT UP IN CHAIR EATING LUNCH.
--- NOTE | 2020-04-27 12:23 | MORECARE ---
CASE MANAGEMENT DISCHARGE SUMMARY PATIENT: CURLY CROWLEY UNIT: [id number] ADM DATE: 04/05/20 AGE: 64 : 53 SEX: M ROOM/BED: D.2303 AUTHOR: MATDOC PHYSICIAN: REFERRING PHYSICIAN: CLAYTON FOWLER MD DATE OF SERVICE: 04/27/20 Discharge Plan Patient Name: CURLY CROWLEY Facility: [facility]:[place] : 1955 Planned Disposition: Anticipated Discharge Date: Discharge Date: Expected LOS: Initial Reviewer: [email or web address] Initial Review Date: 04/05/2020 Generated: 04/27/20 1:22 pm Comments DCP- Discharge Planning Updated by [email or web address]: Sherry Stoddard on 04/27/20 11:[address] PER CM NOTES TRANSFER TO [facility]. HOWEVER QUESTION PENDING FOR ACUTE IP REHAB. TC X2 TO REHAB SCREENER. LEFT VM MESSAGE. REC TC FROM [facility] REGARDING POSSIBLE WEEKEND DISCHARGE. DISCUSSED PLAN AT THIS TIME W/ STAR. [employer] WILL F/U ON THURSDAY. TC TO RESP THERAPIST TO VERIFY RESP NEEDS. DCP- Discharge Planning Updated by [id number]: Carmella Ramos on 04/26/20 10:[address] CM contacted Elli to make sure they had received consult. CM faxed order to [phone]. Awaiting consult to see if patient can discharge to [facility]. CM will continue to follow and assist as needed with discharge planning / needs. DCP- Discharge Planning Updated by [email or web address]: Carmella Ramos on 04/18/20 3:[address] Patient Name: CURLY CROWLEY Admission Status: ER Accout number: [id number] Admission Date: 04-05-2020 : 1955 Admission Diagnosis:ALTERED MENTAL STATUS, UNSPECIFIED Attending: CLAYTON FOWLER Current LOS: 13 Anticipated DC Date: Planned Disposition: Primary Insurance: [employer] Discharge Planning Comments: CM called and spoke with patient's spouse Sliem to complete initial dc planning assessment. CM educated Slime on the CM role and verbal consent given by patient to complete assessment. Patient lives at home with family. Patient is independent. At discharge patient plans to return home and feels this is a safe discharge. CM discussed availability of home health, rehab services, and medical equipment. [facility] has [facility] and they plan to resume care when discharged. SALLY signed. Slime would like [facility] IP rehab if patient will qualify. No preference in DME if patient requires 02 @ discharge. Patient will have family to transport home. Patient denied known discharge needs at this time. CM will continue to follow and will assist as needed with dc plans/needs. Geographic Information System Analyst: Carmella Ramos DCP- Discharge Planning Updated by [email or web address]: Rhonda Colon on 04/17/20 8:[address] CM called patient's at [phone] to discuss discharge planning/needs. I reached a voice mail and left a message to return my call. DCP- Discharge Planning Updated by [id number]: Carmella Ramos on 04/11/20 7:[address] CM RECIEVED A MESSAGE FROM YAYO BURNETT CM WITH [employer] CALLED AND LEFT HER INFORMATION IF PATIENT NEEDS ANY HELP WITH DISCHARGE PLANS [phone] EXT [phone]. DCPIA - Discharge Planning Initial Assessment Updated by [email or web address]: Carmella Ramos on 04/18/20 4:33 pm * Is the patient Alert and Oriented? Yes * How many steps to enter\exit or inside your home? * PCP ARIAS * Pharmacy [facility] * Preadmission Environment Home with Family * ADLs Independent * Equipment Walker * Other Equipment LIFT CHAIR * List name and contact numbers for known caregivers / representatives who currently or will assist patient after discharge: SLIME CROWLEY - SPOUSE - [phone] * Verbal permission to speak to the caregivers and representatives has been obtained from the patient. Yes * Community resources currently utilized Home Health * Please name any agencies selected above. [facility] * Additional services required to return to the preadmission environment? Yes * Can the patient safely return to the preadmission environment? No * Has this patient been hospitalized within the prior 30 days at any hospital? Yes Last DP export: 04/26/20 7:05 pm Patient Name: CURLY CROWLEY Page 82593 at 1223 All edits/amendments must be made on the electronic document DICTATION DATE: 04/27/20 1223 SYSTEM SPECIALIST: GARY 04/27/20 1223 RPT#: [id number] DC DATE: STATUS: ADM IN [address] [place] [address] END OF REPORT
--- NOTE | 2020-04-27 12:38 | MORECARE ---
CASE MANAGEMENT DISCHARGE SUMMARY PATIENT: CURLY CROWLEY UNIT: [id number] ADM DATE: 04/05/20 AGE: 64 : 51 SEX: M ROOM/BED: D.2303 AUTHOR: MAT,DOC PHYSICIAN: REFERRING PHYSICIAN: CLAYTON FOWLER MD DATE OF SERVICE: 04/27/20 Discharge Plan Patient Name: CURLY CROWLEY Facility: [facility]:[place] : 1955 Planned Disposition: Anticipated Discharge Date: Discharge Date: Expected LOS: Initial Reviewer: [email or web address] Initial Review Date: 04/05/2020 Generated: 04/27/20 1:37 pm Comments DCP- Discharge Planning Updated by [email or web address]: Sherry Stoddard on 04/27/20 11:[address] AWAITING CONSULT BY DR SOLIS. AWAITING REHAB PRESCREEN. REPORTLY ORDERS FOR TRILOGY PROCUREMENT AT DISCHARGE. CM TO FOLLOW UP. DCP- Discharge Planning Updated by [email or web address]: Sherry Stoddard on 04/27/20 11:[address] PER CM NOTES TRANSFER TO [facility]. HOWEVER QUESTION PENDING FOR ACUTE IP REHAB. TC X2 TO REHAB SCREENER. LEFT VM MESSAGE. REC TC FROM [facility] REGARDING POSSIBLE WEEKEND DISCHARGE. DISCUSSED PLAN AT THIS TIME W/ STAR. [facility] WILL F/U ON THURSDAY. TC TO RESP THERAPIST TO VERIFY RESP NEEDS. DCP- Discharge Planning Updated by [email or web address]: Carmella Ramos on 04/26/20 10:[address] CM contacted Elli to make sure they had received consult. CM faxed order to [phone]. Awaiting consult to see if patient can discharge to [facility]. CM will continue to follow and assist as needed with discharge planning / needs. DCP- Discharge Planning Updated by [email or web address]: Carmella Ramos on 04/18/20 3:[address] Patient Name: CURLY CROWLEY Admission Status: ER Accout number: [id number] Admission Date: 04-05-2020 : 1955 Admission Diagnosis:ALTERED MENTAL STATUS, UNSPECIFIED Attending: CLAYTON FOWLER Current LOS: 13 Anticipated DC Date: Planned Disposition: Primary Insurance: [employer] Discharge Planning Comments: CM called and spoke with patient's spouse Aixa to complete initial dc planning assessment. CM educated Aixa on the CM role and verbal consent given by patient to complete assessment. Patient lives at home with family. Patient is independent. At discharge patient plans to return home and feels this is a safe discharge. CM discussed availability of home health, rehab services, and medical equipment. Patient has [facility] and they plan to resume care when discharged. SALLY signed. Aixa would like [facility] IP rehab if patient will qualify. No preference in DME if patient requires 02 @ discharge. Patient will have family to transport home. Patient denied known discharge needs at this time. CM will continue to follow and will assist as needed with dc plans/needs. Barber Tool Sharpener: Carmella Ramos DCP- Discharge Planning Updated by [email or web address]: Rhonda Colon on 04/17/20 8:[address] CM called patient's at [phone] to discuss discharge planning/needs. I reached a voice mail and left a message to return my call. DCP- Discharge Planning Updated by [id number]: Carmella Ramos on 04/11/20 7:[address] CM RECIEVED A MESSAGE FROM YAYO BURNETT CM WITH [facility] CALLED AND LEFT HER INFORMATION IF PATIENT NEEDS ANY HELP WITH DISCHARGE PLANS [phone] EXT [phone]. DCPIA - Discharge Planning Initial Assessment Updated by [email or web address]: Carmella Ramos on 04/18/20 4:33 pm * Is the patient Alert and Oriented? Yes * How many steps to enter\exit or inside your home? * PCP HUGO * Pharmacy [facility] * Preadmission Environment Home with Family * ADLs Independent * Equipment Walker * Other Equipment LIFT CHAIR * List name and contact numbers for known caregivers / representatives who currently or will assist patient after discharge: AIXA CROWLEY - SPOUSE - [phone] * Verbal permission to speak to the caregivers and representatives has been obtained from the patient. Yes * Community resources currently utilized Home Health * Please name any agencies selected above. [facility] * Additional services required to return to the preadmission environment? Yes * Can the patient safely return to the preadmission environment? No * Has this patient been hospitalized within the prior 30 days at any hospital? Yes Last DP export: 04/27/20 11:23 am Patient Name: CURLY CROWLEY Page 89569 at 1238 All edits/amendments must be made on the electronic document DICTATION DATE: 04/27/201236 HAND TOOL LAPPER: GARY 04/27/201236 RPT#: [id number] DC DATE: STATUS: ADM IN [facility] [address] [place] [address] END OF REPORT
--- NOTE | 2020-04-27 13:34 | NUR ---
PT SITTING IN CHAIR. PULSE OX 95% ON 4LNC, WEANED TO 3LNC AND NOTIFIED RT. CHAIR ALARM IN PLACE.
--- NOTE | 2020-04-27 13:48 | NUR ---
PT CLEANED AND ASSISTED BACK TO BED. BED ALARM ON.
--- NOTE | 2020-04-27 14:09 | NUR ---
Rehab Note- Acute INpatient Rehab prescreen order received. We've been following the patient since referralon 04/14 which he has not been medically stable but now is and PreAuth has been initiated and clinicals have been faxed into to for review for possible inpatient acute rehab stay. Will await determination for possible acute rehab stay. Thank you for this referral! Tamara Mena RN Clinical Liaison, [facility] Rehab
--- NOTE | 2020-04-27 14:45 | PN ---
PATIENT:CURLY CROWLEY MEDICAL RECORD: [id number] LOCATION:[facility] ADMISSION DATE: 04/05/20 PROGRESS NOTE DATE OF SERVICE: 04/22/2020 Mr. Crowley is known to me from clinical contact over the course of this 3-week hospitalization. He has had some periods of significant confusion and agitation. However, they have always been associated with hypercapnic state. During the brief episodes where he has had a normal CO2 level, his cognition and behavior had been normal. I do not think there is anything I can do for him on the behavioral unit. As mentioned in a recent note, this patient does represent something of a management problem given his respiratory situation, which causes him to be confused, but the very medications that might be helpful to address his agitated behavior can also exacerbate his underlying respiratory problems. I recognize the dilemma and understand that often the best course of action is one that balance is relative risk and benefit. Regarding an inpatient stay on the behavioral unit there just simply is not anything that I have to offer. I can advise and I have advised about how to manage his behavior, but again the medicines used p.r.n. for this purpose can worsen his underlying respiratory situation. TRANSINT:[id number] Voice Confirmation ID: [id number] DOCUMENT ID: [id number] LAVERNE SOLIS MD at 1445 CC: [id number] DICTATION DATE: 04/26/20 1544 DIETARY AIDE: 04/27/20 0014 ADM IN [facility] [address] [place] [address]
--- NOTE | 2020-04-27 14:58 | NUR ---
PT UP TO BSC FOR BM. CONTINUES TO SET OFF ALARM. WANTS TO LEAVE. IN CHAIR AT PRESENT. REORIENTED TO SURROUNDINGS.
--- NOTE | 2020-04-27 16:12 | NUR ---
PT QUITE STUBBORN AND FRUSTRATED ABOUT LIMITATIONS SUCH CERVICAL COLLAR AND NOT BEING ABLE TO START ON SOLID FOOD IMMEDIATELY. UNABLE TO VOID ON SIDE OF BED AND WANTS TO WALK TO BATHROOM, INSTRUCTED CANT DO THAT JUST YET SO FRUSTRATED AND THROUGH URINAL IN TRASH. TOLERATING ICE AND WATER SO WILL TRY AND ADVANCE IF ABLE. SCD'S ON, INCENTIVE SPIROMETRY USED.
--- NOTE | 2020-04-27 16:38 | NUR ---
PT SLEEPING AT PRESENT. WILL LET REST AND WAKE FOR DINNER.
--- NOTE | 2020-04-27 17:13 | MORECARE ---
CASE MANAGEMENT DISCHARGE SUMMARY PATIENT: CURLY CROWLEY UNIT: [id number] ADM DATE: 04/05/20 AGE: 64 : 51 SEX: M ROOM/BED: D.2303 AUTHOR: MAT,DOC PHYSICIAN: REFERRING PHYSICIAN: CLAYTON FOWLER MD DATE OF SERVICE: 04/27/20 Discharge Plan Patient Name: CURLY CROWLEY Facility: [facility]:[place] : 1955 Planned Disposition: Anticipated Discharge Date: Discharge Date: Expected LOS: Initial Reviewer: [id number] Initial Review Date: 04/05/2020 Generated: 04/27/20 6:12 pm Comments DCP- Discharge Planning Updated by [email or web address]: Sherry Stoddard on 04/27/20 4:[address] LATE ENTRY 1445 CM REC CB FROM ACUTE REHAB SCREENER, BHAVANI. THE REQUEST FOR AUTH HAS BEEN SUBMITTED TO [facility]. AWAITING AUTH. NEED TRILOGY ORDERS. DCP- Discharge Planning Updated by [id number]: Sherry Stoddard on 04/27/20 11:[address] AWAITING CONSULT BY DR SOLIS. AWAITING REHAB PRESCREEN. REPORTLY ORDERS FOR TRILOGY PROCUREMENT AT DISCHARGE. CM TO FOLLOW UP. DCP- Discharge Planning Updated by [id number]: Sherry Stoddard on 04/27/20 11:[address] PER CM NOTES TRANSFER TO [facility]. HOWEVER QUESTION PENDING FOR ACUTE IP REHAB. TC X2 TO REHAB SCREENER. LEFT VM MESSAGE. REC TC FROM [facility] REGARDING POSSIBLE WEEKEND DISCHARGE. DISCUSSED PLAN AT THIS TIME W/ STAR. [employer] WILL F/U ON THURSDAY. TC TO RESP THERAPIST TO VERIFY RESP NEEDS. DCP- Discharge Planning Updated by [email or web address]: Carmella Ramos on 04/26/20 10:[address] CM contacted [facility] to make sure they had received consult. CM faxed order to [phone]. Awaiting consult to see if patient can discharge to [facility]. CM will continue to follow and assist as needed with discharge planning / needs. DCP- Discharge Planning Updated by [email or web address]: Carmella Ramos on 04/18/20 3:[address] Patient Name: CURLY CROWLEY Admission Status: ER Accout number: [id number] Admission Date: 04-05-2020 : 1955 Admission Diagnosis:ALTERED MENTAL STATUS, UNSPECIFIED Attending: CLAYTON FOWLER Current LOS: 13 Anticipated DC Date: Planned Disposition: Primary Insurance: [employer] Discharge Planning Comments: CM called and spoke with patient's spouse Aixa to complete initial dc planning assessment. CM educated Aixa on the CM role and verbal consent given by patient to complete assessment. Patient lives at home with family. Patient is independent. At discharge patient plans to return home and feels this is a safe discharge. CM discussed availability of home health, rehab services, and medical equipment. Patient has [facility] and they plan to resume care when discharged. SALLY signed. Aixa would like [facility] IP rehab if patient will qualify. No preference in DME if patient requires 02 @ discharge. Patient will have family to transport home. Patient denied known discharge needs at this time. CM will continue to follow and will assist as needed with dc plans/needs. Medical Director/Head Team Physician: Carmella Ramos DCP- Discharge Planning Updated by [email or web address]: Rhonda Colon on 04/17/20 8:[address] CM called patient's at [phone] to discuss discharge planning/needs. I reached a voice mail and left a message to return my call. DCP- Discharge Planning Updated by [email or web address]: Carmella Ramos on 04/11/20 7:[address] CM RECIEVED A MESSAGE FROM YAYO BURNETT CM WITH [facility] CALLED AND LEFT HER INFORMATION IF PATIENT NEEDS ANY HELP WITH DISCHARGE PLANS [phone] EXT [phone]. DCPIA - Discharge Planning Initial Assessment Updated by [email or web address]: Carmella Ramos on 04/18/20 4:33 pm * Is the patient Alert and Oriented? Yes * How many steps to enter\exit or inside your home? * PCP ARIAS * Pharmacy [facility] * Preadmission Environment Home with Family * ADLs Independent * Equipment Walker * Other Equipment LIFT CHAIR * List name and contact numbers for known caregivers / representatives who currently or will assist patient after discharge: AIXA CROWLEY - SPOUSE - [phone] * Verbal permission to speak to the caregivers and representatives has been obtained from the patient. Yes * Community resources currently utilized Home Health * Please name any agencies selected above. [facility] * Additional services required to return to the preadmission environment? Yes * Can the patient safely return to the preadmission environment? No * Has this patient been hospitalized within the prior 30 days at any hospital? Yes Last DP export: 04/27/20 11:38 am Patient Name: CURLY CROWLEY Page 16840 at 1713 All edits/amendments must be made on the electronic document DICTATION DATE: 04/27/201711 ANODIC OPERATOR: GARY 04/27/201711 RPT#: [id number] DC DATE: STATUS: ADM IN [facility] [address] [place] [address] END OF REPORT
--- NOTE | 2020-04-27 18:33 | NUR ---
PT UP FOR MEAL IN CHAIR, NOW BACK TO BED. ALARM ON.
[2020-04-28] VITALS (15 sets, daily range): BP systolic 89–108; BP diastolic 39–73
--- NOTE | 2020-04-28 00:56 | NUR ---
1900-ASSESSMENT COMPLETED. PATIENT TOOK BP CUFF, PULSE OX, AND LEADS OFF. PUT THEM BACK ON AND PATIENT STATED HE DIDN'T NEED THEM ON. CONFUSION NOTED. ATTEMPTED TO REORIENT WITHOUT SUCCESS. BED ALARM ON. NC OFF, PLACED, NC ON AT 4L. 2100-TRIED TO GET UP OOB TWICE. ASSISTED BACK TO BED. BED ALARM ON. 0- BIPAP PLACED ON AT 40%. 2300--RE-ASSESSMENT COMPLETED. NO CHANGES SINCE LAST ASSESSMENT. PT HAS TAKEN OFF BIPAP [address] ON. 0056-EYES CLOSED, EASILY WAKES. VSS.
--- NOTE | 2020-04-28 03:00 | NUR ---
RE-ASSESSMENT COMPLETED. NO CHANGES SINCE LAST ASSESSMENT. VSS. EYES CLOSED, EASILY WAKES. BIPAP STILL ON
[2020-04-28 03:47] LABS: ALBUMIN 2.7 g/dL (3.4-5.0); ANION GAP 9.5 mmol/L (8-16); BILIRUBIN - TOTAL 0.89 mg/dL (0.2-1.3); CALCIUM 9.2 mg/dL (8.5-10.1); CARBON DIOXIDE 31.5 mmol/L (21.0-32.0); CREATININE - SERUM 1.8 mg/dL (0.6-1.3); MAGNESIUM - SERUM 2.4 mg/dL (1.8-2.4); PROTEIN - SERUM 7.9 g/dL (6.4-8.2)
[2020-04-28 03:55] LABS: BASOPHILS 0.1 % (0-2); EOSINOPHILS 2.4 % (0-7); HEMATOCRIT 33.6 % (42.0-54.0); IMMATURE GRANULOCYTES 0.1 % (0-5); LYMPHOCYTES 11.6 % (15-50); MCHC 29.8 g/dL (31.0-37.0); MCV 87.5 fL (80.0-100.0); MEAN PLATELET VOLUME 9.8 fL (7.4-10.4); MONOCYTES 10.4 % (2-11); NEUTROPHILS 75.4 % (40-80); PLATELET COUNT 234 10x3/uL (130-400); RBC 3.84 10x6/uL (4.20-6.10); WBC 13.8 10x3/uL (4.8-10.8)
--- NOTE | 2020-04-28 05:00 | NUR ---
CHG BATH WITH COMPLETE LINEN CHANGE
--- NOTE | 2020-04-28 10:23 | NUR ---
PER DR DAWSON, OKAY TO TRANSFER TO FLOOR.
--- NOTE | 2020-04-28 15:18 | NUR ---
0700 REPOFRT RECIEVED AND CARE ASSUMED OF PATIENT.. SEE FLOW SHEET FOR SHIFT ASSESMENT FINDINGS.. 0800 BREAKFAST SERVED AND PATIENT IS FEEDING SELF.. 0900 DR GRAY IS IN TO SEE PATIEN UPDATE IS GIVEN.. 1000 DR STANLEY IS IN TO SEE PATIENT SPOKE WITH DR GRAY RE PATIENT.. 1100 OK TO TRANSFER PATIENT TO THE FLOOR ORDER RECIEVED.. 1145 PHYSICAL THERAPY IN TO AMBULATE PATIENT IN UNIT.. PATIENT TOLERATED WELL.. BACK IN ROOM AND ASSISTED INTO CHAIR AT THE BEDSIDE,, FSBS DONE AND LUNCH SERVED TO PATIENT WHILE SITTING IN CHAIR,,, PT IS FEEDING SELF.. 1300 ASSISTED BACK TO BED ...
--- NOTE | 2020-04-28 17:35 | NUR ---
1600 IN TO SEE PATIENT UPDATE IS GIVEN.. 1700 DIET SERVED BS DONE NO INSULIN COVER 1730 ROOM OBTAINED ON FLOOR 2109 1735 REPORT CALLED TO PRUDENCE LEÓN LPN ON FLOOR 1736 PT TRAnsported to floor via wheel chair in attendance
--- NOTE | 2020-04-28 18:07 | NUR ---
PT ARRIVED VIA WHEELCHAIR WITH ALL BELONGINGS. RECIEVED WATER AND URINAL PER REQUEST. PLACED ON 3L NC. BED ALARM IN PLACE AND FUNCTIONING PROPERLY. PT DENIES FURTHER NEEDS OR PAIN AT THIS TIME. VSS. BED IN LOWEST POSITION. RR EVEN AND UNLABORED. CALL LIGHT WITHIN REACH. WILL CONTINUE TO MONITOR.
--- NOTE | 2020-04-28 19:00 | NUR ---
BEDSIDE REPORT RECEIVED, PT CARE ASSUMED. INTRODUCED SELF AND WROTE NAME ON BOARD. PT SITTING UP IN BED, AAOX2, DISORIENTED TO TIME AND SITUATION. REQUESTING WATER, PROVIDED. DENIES ANY OTHER NEEDS AT THIS TIME. BED IN LOWEST, SRX3, CALL LIGHT AND URINAL WITHIN REACH. BED ALARM ON AND FUNCTIONING. WILL CTM.
[2020-04-29 00:30] VITALS: BP 102/58
[2020-04-29 04:34] VITALS: BP 97/51
[2020-04-29 08:42] VITALS: BP 94/57
[2020-04-29 10:35] LABS: ANION GAP 8.9 mmol/L (8-16); CARBON DIOXIDE 30.3 mmol/L (21.0-32.0); CREATININE - SERUM 1.4 mg/dL (0.6-1.3); POTASSIUM - SERUM 4.2 mmol/L (3.5-5.1)
[2020-04-29 10:37] LABS: BASOPHILS 0.3 % (0-2); EOSINOPHILS 3.1 % (0-7); HEMATOCRIT 32.4 % (42.0-54.0); HEMOGLOBIN 9.7 g/dL (13.5-17.5); IMMATURE GRANULOCYTES 0.3 % (0-5); LYMPHOCYTES 13.1 % (15-50); MCH 25.6 pg (26.0-34.0); MCHC 29.9 g/dL (31.0-37.0); MONOCYTES 10.9 % (2-11); NEUTROPHILS 72.3 % (40-80); PLATELET COUNT 274 10x3/uL (130-400); RBC 3.79 10x6/uL (4.20-6.10); RDW 14.9 % (11.5-14.5)
[2020-04-29 10:48] LABS: MCV 85.5 fL (80.0-100.0); WBC 7.5 10x3/uL (4.8-10.8)
[2020-04-29 13:55] VITALS: BP 105/53
--- NOTE | 2020-04-29 14:00 | NUR ---
PT CONTINUES TO HAVE INTERMIENT CONFUSION , IRRITABILITY, AND ATTEMPTS TO GET OOB ON HIS OWN. FALL MONITOR/EXIT ALARM IN USE. PT AMBULATED INTO THE BATHROOM WITH NURSE ASSIST AND THE USE OF POTTY CHAIR AN AMBULATORY AID. NO BM AT THIS TIME. RETURNED TO BED, ALARMS ACTIVE CALL LIGHT IN REACH.
[2020-04-29 16:16] VITALS: BP 108/52
--- NOTE | 2020-04-29 19:10 | NUR ---
BEDSIDE REPORT RECEIVED, PT CARE ASSUMED. WROTE NAME ON BOARD. PT SITTING UP IN BED, AAOX3, EASILY REORIENTED TO PLACE. REQUESTING DARLIN DHILLON, PROVIDED. DENIES ANY OTHER NEEDS AT THIS TIME. BED IN LOWEST, SRX2, CALL LIGHT AND URINAL WITHIN REACH. BED ALARM ON AND FUNCTIONING. WILL CTM.
[2020-04-29 20:30] VITALS: BP 109/64
[2020-04-30 04:30] VITALS: BP 109/55
--- NOTE | 2020-04-30 07:20 | NUR ---
RECIEVE REPORT. ALERT AND ORIENTED TO PERSON AND PLACE. SITTING UP IN BED. BED ALARM ON. NO SIGNS OF DISTRESS. DENIES ANY NEEDS. CONTINUE PLAN OF CARE AND SAFETY PRECAUTIONS.
[2020-04-30 07:51] VITALS: BP 117/69
[2020-04-30 08:03] LABS: BASOPHILS 0.2 % (0-2); EOSINOPHILS 5.9 % (0-7); HEMATOCRIT 31.5 % (42.0-54.0); HEMOGLOBIN 9.4 g/dL (13.5-17.5); IMMATURE GRANULOCYTES 0.2 % (0-5); MCH 25.4 pg (26.0-34.0); MCHC 29.8 g/dL (31.0-37.0); MCV 85.1 fL (80.0-100.0); MEAN PLATELET VOLUME 9.4 fL (7.4-10.4); MONOCYTES 13.9 % (2-11); NEUTROPHILS 57.8 % (40-80); PLATELET COUNT 283 10x3/uL (130-400); RDW 14.8 % (11.5-14.5); WBC 5.9 10x3/uL (4.8-10.8)
[2020-04-30 08:27] LABS: ANION GAP 9.6 mmol/L (8-16); CALCIUM 9.1 mg/dL (8.5-10.1); CARBON DIOXIDE 31.4 mmol/L (21.0-32.0); CREATININE - SERUM 1.4 mg/dL (0.6-1.3); MAGNESIUM - SERUM 2.1 mg/dL (1.8-2.4)
--- NOTE | 2020-04-30 10:19 | NUR ---
Rehab Note- Called automated system with [employer] & authorization is still pending with review. Continue to await determination for possible inpatient acute rehab stay. Will continue to follow. Thank you for this referral! Tamara Mena RN Clinical Liaison, [facility] Rehab
[2020-04-30 11:48] VITALS: BP 109/59
--- NOTE | 2020-04-30 14:48 | NUR ---
OT NOTE: PT COMPLETED SIT TO STAND WITH CGA. PT COMPLETED SITTING BALANCE WITH SPV. PT COMLETED FACE HYGIENE WITH SETUP. PT IS STILL CONFUSED AND REQUIRED VERBAL CUES. [phone] THANK YOU,VALERIO SAINI
[2020-04-30 15:09] VITALS: BP 103/67
--- NOTE | 2020-04-30 15:47 | MORECARE ---
CASE MANAGEMENT DISCHARGE SUMMARY PATIENT: CURLY CROWLEY UNIT: [id number] ADM DATE: 04/05/20 AGE: 64 : 53 SEX: M ROOM/BED: D.2110 AUTHOR: MAT,DOC PHYSICIAN: REFERRING PHYSICIAN: CLAYTON FOWLER MD DATE OF SERVICE: 04/30/20 Discharge Plan Patient Name: CURLY CROWLEY Facility: [facility] : 1955 Planned Disposition: Anticipated Discharge Date: Discharge Date: Expected LOS: Initial Reviewer: [email or web address] Initial Review Date: 04/05/2020 Generated: 04/30/20 4:47 pm DCP- Discharge Planning Updated by [email or web address]: Sherry Stoddard on 04/27/20 4:[address] LATE ENTRY 1445 CM REC CB FROM ACUTE REHAB SCREENER, BHAVANI. THE REQUEST FOR AUTH HAS BEEN SUBMITTED TO [facility]. AWAITING AUTH. NEED TRILOGY ORDERS. DCP- Discharge Planning Updated by [email or web address]: Sherry Stoddard on 04/27/20 11:[address] AWAITING CONSULT BY DR SOLIS. AWAITING REHAB PRESCREEN. REPORTLY ORDERS FOR TRILOGY PROCUREMENT AT DISCHARGE. CM TO FOLLOW UP. DCP- Discharge Planning Updated by [email or web address]: Sherry Stoddard on 04/27/20 11:[address] PER CM NOTES TRANSFER TO [facility]END[facility]. HOWEVER QUESTION PENDING FOR ACUTE IP REHAB. TC X2 TO REHAB SCREENER. LEFT VM MESSAGE. REC TC FROM [facility] REGARDING POSSIBLE WEEKEND DISCHARGE. DISCUSSED PLAN AT THIS TIME W/ STAR. [facility] WILL F/U ON THURSDAY. TC TO RESP THERAPIST TO VERIFY RESP NEEDS. DCP- Discharge Planning Updated by [email or web address]: Carmella Ramos on 04/26/20 10:[address] CM contacted Elli to make sure they had received consult. CM faxed order to [phone]. Awaiting consult to see if patient can discharge to [facility]. CM will continue to follow and assist as needed with discharge planning / needs. DCP- Discharge Planning Updated by [id number]: Carmella Ramos on 04/18/20 3:[address] Patient Name: CURLY CROWLEY Admission Status: ER Accout number: [id number] Admission Date: 04-05-2020 : 1955 Admission Diagnosis:ALTERED MENTAL STATUS, UNSPECIFIED Attending: CLAYTON FOWLER Current LOS: 13 Anticipated DC Date: Planned Disposition: Primary Insurance: [employer] Discharge Planning Comments: CM called and spoke with patient's spouse Slime to complete initial dc planning assessment. CM educated Slime on the CM role and verbal consent given by patient to complete assessment. Patient lives at home with family. Patient is independent. At discharge patient plans to return home and feels this is a safe discharge. CM discussed availability of home health, rehab services, and medical equipment. Patient has [facility] and they plan to resume care when discharged. SALLY signed. Slime would like [facility] IP rehab if patient will qualify. No preference in DME if patient requires 02 @ discharge. Patient will have family to transport home. Patient denied known discharge needs at this time. CM will continue to follow and will assist as needed with dc plans/needs. City Councilman: Carmella Ramos DCP- Discharge Planning Updated by [email or web address]: Rhonda Colon on 04/17/20 8:[address] CM called patient's at [phone] to discuss discharge planning/needs. I reached a voice mail and left a message to return my call. DCP- Discharge Planning Updated by [email or web address]: Carmella Ramos on 04/11/20 7:[address] CM RECIEVED A MESSAGE FROM YAYO BURNETT CM WITH [facility] CALLED AND LEFT HER INFORMATION IF PATIENT NEEDS ANY HELP WITH DISCHARGE PLANS [phone] [phone]. DCPIA - Discharge Planning Initial Assessment Updated by [email or web address]: Carmella Ramos on 04/18/20 4:33 pm * Is the patient Alert and Oriented? Yes * How many steps to enter\exit or inside your home? * PCP ARIAS * Pharmacy [facility] * Preadmission Environment Home with Family * ADLs Independent * Equipment Walker * Other Equipment LIFT CHAIR * List name and contact numbers for known caregivers / representatives who currently or will assist patient after discharge: SLIME CROWLEY - SPOUSE - [phone] * Verbal permission to speak to the caregivers and representatives has been obtained from the patient. Yes * Community resources currently utilized Home Health * Please name any agencies selected above. [facility] * Additional services required to return to the preadmission environment? Yes * Can the patient safely return to the preadmission environment? No * Has this patient been hospitalized within the prior 30 days at any hospital? Yes External Providers External Provider: Janeth Goodman Contact Date: Service Request Date: Service Type: Resolution: Reviewer: Comments: Coverage Notice Reviewer: [email or web address] Jass Colon Notice Issued Date-Time: 04/30/2020 15:45 Notice Type: Patient Choice Letter Notice Delivered To: Family Member Relationship to Patient: Spouse Process Plant Operator Name: Delivery Method: - Gabrielle Days: Prior Verbal Notification: Recipient Understood Notice: Recipient Signature: Med Rec Note Co-signed by Attending: Coverage Notice Comment: Last DP export: 04/27/20 4:13 pm Patient Name: CURLY CROWLEY Page 12095 at 1547 All edits/amendments must be made on the electronic document DICTATION DATE: 04/30/20 1547 GLASS ARTIST: GARY 04/30/20 1547 RPT#: [id number] DC DATE: STATUS: ADM IN [facility] [address] [place] [address] END OF REPORT
--- NOTE | 2020-04-30 15:54 | NUR ---
OT NOTE: PT COMPLETED STANDING BALANCE WITH CGA. PT COMPLETED TOILETING TASKS WITH SBA/CGA. PT COMPLETED SITTING BALANCE WITH SBA. [phone] THEE ALMONTE COTA
--- NOTE | 2020-04-30 15:54 | MORECARE ---
CASE MANAGEMENT DISCHARGE SUMMARY PATIENT: CURLY CROWLEY UNIT: [id number] ADM DATE: 04/05/20 AGE: 64 : 53 SEX: M ROOM/BED: D.2110 AUTHOR: MAT,DOC PHYSICIAN: REFERRING PHYSICIAN: CLAYTON FOWLER MD DATE OF SERVICE: 04/30/20 Discharge Plan Patient Name: CURLY CROWLEY Facility: [facility]:[place] : 1955 Planned Disposition: Anticipated Discharge Date: Discharge Date: Expected LOS: Initial Reviewer: [email or web address] Initial Review Date: 04/05/2020 Generated: 04/30/20 4:54 pm Comments DCP- Discharge Planning Updated by [email or web address]: Rhonda Colon on 04/30/20 2:[address] I spoke with Dr. Saez about Trilogy order and he would like him to have a trilogy. I spoke with patient and he agrees. Patient states to call his for DME preference. I called [phone] and spoke with patient's , she would like to use [facility] [employer]. I called Freddy and informed her and clinical faxed. CM will continue to follow and assist with discharge planning/needs. DCP- Discharge Planning Updated by [id number]: Sherry Stoddard on 04/27/20 4:[address] LATE ENTRY 1445 CM REC CB FROM ACUTE REHAB SCREENER, BHAVANI. THE REQUEST FOR AUTH HAS BEEN SUBMITTED TO [facility]. AWAITING AUTH. NEED TRILOGY ORDERS. DCP- Discharge Planning Updated by [email or web address]: Sherry Stoddard on 04/27/20 11:[address] AWAITING CONSULT BY DR SOLIS. AWAITING REHAB PRESCREEN. REPORTLY ORDERS FOR TRILOGY PROCUREMENT AT DISCHARGE. CM TO FOLLOW UP. DCP- Discharge Planning Updated by [email or web address]: Sherry Stoddard on 04/27/20 11:[address] PER CM NOTES TRANSFER TO [facility] PEND[facility]. HOWEVER QUESTION PENDING FOR ACUTE IP REHAB. TC X2 TO REHAB SCREENER. LEFT VM MESSAGE. REC TC FROM [facility] REGARDING POSSIBLE WEEKEND DISCHARGE. DISCUSSED PLAN AT THIS TIME W/ [facility]. [facility] WILL F/U ON THURSDAY. TC TO RESP THERAPIST TO VERIFY RESP NEEDS. DCP- Discharge Planning Updated by [email or web address]: Carmella Ramos on 04/26/20 10:[address] CM contacted Elli to make sure they had received consult. CM faxed order to [phone]. Awaiting consult to see if patient can discharge to [facility]. CM will continue to follow and assist as needed with discharge planning / needs. DCP- Discharge Planning Updated by [email or web address]: Carmella Ramos on 04/18/20 3:[address] Patient Name: CURLY CROWLEY Admission Status: ER Accout number: [id number] Admission Date: 04-05-2020 : 1955 Admission Diagnosis:ALTERED MENTAL STATUS, UNSPECIFIED Attending: CLAYTON FOWLER Current LOS: 13 Anticipated DC Date: Planned Disposition: Primary Insurance: [employer] Discharge Planning Comments: CM called and spoke with patient's spouse Slime to complete initial dc planning assessment. CM educated Slime on the CM role and verbal consent given by patient to complete assessment. Patient lives at home with family. Patient is independent. At discharge patient plans to return home and feels this is a safe discharge. CM discussed availability of home health, rehab services, and medical equipment. Patient has [facility] and they plan to resume care when discharged. SALLY signed. Slime would like [facility] IP rehab if patient will qualify. No preference in DME if patient requires 02 @ discharge. Patient will have family to transport home. Patient denied known discharge needs at this time. CM will continue to follow and will assist as needed with dc plans/needs. File Clerk Data Entry: Carmella Ramos DCP- Discharge Planning Updated by [email or web address]: Rhonda Colon on 04/17/20 8:[address] CM called patient's at [phone] to discuss discharge planning/needs. I reached a voice mail and left a message to return my call. DCP- Discharge Planning Updated by [email or web address]: Carmella Ramos on 04/11/20 7:[address] CM RECIEVED A MESSAGE FROM YAYO BURNETT CM WITH [facility] CALLED AND LEFT HER INFORMATION IF PATIENT NEEDS ANY HELP WITH DISCHARGE PLANS [phone] [phone]. DCPIA - Discharge Planning Initial Assessment Updated by [email or web address]: Carmella Ramos on 04/18/20 4:33 pm * Is the patient Alert and Oriented? Yes * How many steps to enter\exit or inside your home? * PCP HUGO * Pharmacy [facility] * Preadmission Environment Home with Family * ADLs Independent * Equipment Walker * Other Equipment LIFT CHAIR * List name and contact numbers for known caregivers / representatives who currently or will assist patient after discharge: SLIME CROWLEY - SPOUSE - [phone] * Verbal permission to speak to the caregivers and representatives has been obtained from the patient. Yes * Community resources currently utilized Home Health * Please name any agencies selected above. [facility] * Additional services required to return to the preadmission environment? Yes * Can the patient safely return to the preadmission environment? No * Has this patient been hospitalized within the prior 30 days at any hospital? Yes Coverage Notice Reviewer: [email or web address] Jass Colon Notice Issued Date-Time: 04/30/2020 15:45 Notice Type: Patient Choice Letter Notice Delivered To: Family Member Relationship to Patient: Spouse Cable Television Program Director Name: Delivery Method: HAND - Hand Delivered Gabrielle Days: Prior Verbal Notification: Recipient Understood Notice: Yes Recipient Signature: Yes Med Rec Note Co-signed by Attending: Coverage Notice Comment: SALLY FOR [facility] and [facility] and [facility] inpatient rehab. Last DP export: 04/30/20 2:47 pm Patient Name: CURLY CROWLEY Page 78050 at 1554 All edits/amendments must be made on the electronic document DICTATION DATE: 04/30/20 1554 STRIPPER LATEX: GARY 04/30/20 1554 RPT#: [id number] DC DATE: STATUS: ADM IN [facility] [address] [place] [address] END OF REPORT
--- NOTE | 2020-04-30 19:48 | NUR ---
REPORT RECEIVED, WILL CONTINUE POC. PATIENT IS AAOX2, SITTING IN CHAIR, RESPIRATORY THERAPY ADMINISTERED BREATHING TX. NO S/S OF DISTRESS OBSERVED, RR EVEN AND UNLABORED ON 3L O2 VIA NC. PATIENT DENIES NEEDS AT THIS TIME. CL IN REACH, BED LOCKED AND LOWERED. NING ALARM ON. WILL CTM.
[2020-04-30 20:00] VITALS: BP 111/66
[2020-05-01] VITALS: BP 120/80
--- NOTE | 2020-05-01 02:29 | NUR ---
I have reviewed this patient and I concur with the Shift Assessment completed by the Licensed Practical Nurse today this shift.
[2020-05-01 04:00] VITALS: BP 117/71
[2020-05-01 05:46] LABS: BASOPHILS 0.3 % (0-2); EOSINOPHILS 6.2 % (0-7); HEMATOCRIT 33.2 % (42.0-54.0); IMMATURE GRANULOCYTES 0.5 % (0-5); LYMPHOCYTES 26.5 % (15-50); MCH 25.3 pg (26.0-34.0); MCHC 30.1 g/dL (31.0-37.0); MCV 83.8 fL (80.0-100.0); MEAN PLATELET VOLUME 8.7 fL (7.4-10.4); MONOCYTES 12.4 % (2-11); NEUTROPHILS 54.1 % (40-80); PLATELET COUNT 293 10x3/uL (130-400); RBC 3.96 10x6/uL (4.20-6.10); RDW 14.5 % (11.5-14.5); WBC 6.2 10x3/uL (4.8-10.8)
[2020-05-01 06:01] LABS: ANION GAP 7.1 mmol/L (8-16); CALCIUM 9.2 mg/dL (8.5-10.1); CARBON DIOXIDE 34.1 mmol/L (21.0-32.0); CREATININE - SERUM 1.4 mg/dL (0.6-1.3); POTASSIUM - SERUM 4.2 mmol/L (3.5-5.1)
--- NOTE | 2020-05-01 07:20 | NUR ---
RECIEVE REPORT. ALERT AND ORIENTED X4. SITTING UP IN CHAIR. DENIES ANY NEEDS. CONTINUE PLAN OF CARE AND SAFETY PRECAUTIONS.
[2020-05-01 10:03] VITALS: BP 120/79
--- NOTE | 2020-05-01 13:07 | NUR ---
Nutrition Follow-up: Good/fair PO intake. Diet: Renal ADA PO intake: 50-100% Wt: 244# (04/28); 281.9# (04/17); 254.6# (04/21) Labs noted: Glu 109 Meds noted: Lasix, KDur, Pepcid, Protonix, electrolyte protocol -Encourage PO intake and honor food preferences within diet restrictions. -Monitor wt. -RD following.
[2020-05-01 13:33] VITALS: BP 108/68
--- NOTE | 2020-05-01 13:33 | MORECARE ---
CASE MANAGEMENT DISCHARGE SUMMARY PATIENT: CURLY CROWLEY UNIT: [id number] ADM DATE: 04/05/20 AGE: 64 : 51 SEX: M ROOM/BED: D.2110 AUTHOR: MAT,DOC PHYSICIAN: REFERRING PHYSICIAN: CLAYTON FOWLER MD DATE OF SERVICE: 05/01/20 Discharge Plan Patient Name: CURLY CROWLEY Facility: [facility]:[place] : 1955 Planned Disposition: Anticipated Discharge Date: Discharge Date: Expected LOS: Initial Reviewer: [email or web address] Initial Review Date: 04/05/2020 Generated: 05/01/20 2:32 pm Comments DCP- Discharge Planning Updated by [email or web address]: Rhonda Colon on 05/01/20 12:[address] I spoke with Freddy with [facility] and he has been approved for his Trilogy. Simone will deliver it to the hospital today. I called risk and insurance manager Yayo and left a message to see if she could expedite the process to get him approved for inpatient rehab. CM will continue to follow and assist with discharge planning/needs. DCP- Discharge Planning Updated by [email or web address]: Rhonda Colon on 04/30/20 2:[address] I spoke with Dr. Saez about Trilogy order and he would like him to have a trilogy. I spoke with patient and he agrees. Patient states to call his for DME preference. I called [phone] and spoke with patient's , she would like to use [facility]. I called Freddy and informed her and clinical faxed. CM will continue to follow and assist with discharge planning/needs. DCP- Discharge Planning Updated by [email or web address]: Sherry Stoddard on 04/27/20 4:[address] LATE ENTRY 1445 CM REC CB FROM ACUTE REHAB [facility]VAANI CHOUDHURY. THE REQUEST FOR AUTH HAS BEEN SUBMITTED TO [facility]. AWAITING AUTH. NEED TRILOGY ORDERS. DCP- Discharge Planning Updated by [id number]: Sherry Stoddard on 04/27/20 11:[address] AWAITING CONSULT BY DR SOLIS. AWAITING REHAB PRESCREEN. REPORTLY ORDERS FOR TRILOGY PROCUREMENT AT DISCHARGE. CM TO FOLLOW UP. DCP- Discharge Planning Updated by [email or web address]: Sherry Stoddard on 04/27/20 11:[address] PER CM NOTES TRANSFER TO [facility] P[facility]. HOWEVER QUESTION PENDING FOR ACUTE IP REHAB. TC X2 TO REHAB SCREENER. LEFT VM MESSAGE. REC TC FROM [employer] [facility] REGARDING POSSIBLE WEEKEND DISCHARGE. DISCUSSED PLAN AT THIS TIME W/ STAR. [facility] WILL F/U ON THURSDAY. TC TO RESP THERAPIST TO VERIFY RESP NEEDS. DCP- Discharge Planning Updated by [email or web address]: Carmella Ramos on 04/26/20 10:[address] CM contacted [facility] to make sure they had received consult. CM faxed order to [phone]. Awaiting consult to see if patient can discharge to [facility]. CM will continue to follow and assist as needed with discharge planning / needs. DCP- Discharge Planning Updated by [email or web address]: Carmella Ramos on 04/18/20 3:[address] Patient Name: CURLY CROWLEY Admission Status: ER Accout number: [id number] Admission Date: 04-05-2020 : 1955 Admission Diagnosis:ALTERED MENTAL STATUS, UNSPECIFIED Attending: CLAYTON FOWLER Current LOS: 13 Anticipated DC Date: Planned Disposition: Primary Insurance: [employer] Discharge Planning Comments: CM called and spoke with patient's spouse Slime to complete initial dc planning assessment. CM educated Slime on the CM role and verbal consent given by patient to complete assessment. Patient lives at home with family. Patient is independent. At discharge patient plans to return home and feels this is a safe discharge. CM discussed availability of home health, rehab services, and medical equipment. Patient has [facility] and they plan to resume care when discharged. SALLY signed. Slime would like [facility] IP rehab if patient will qualify. No preference in DME if patient requires 02 @ discharge. Patient will have family to transport home. Patient denied known discharge needs at this time. CM will continue to follow and will assist as needed with dc plans/needs. Foundry Melt Supervisor: Carmella Ramos DCP- Discharge Planning Updated by [email or web address]: Rhonda Colon on 04/17/20 8:[address] CM called patient's at [phone] to discuss discharge planning/needs. I reached a voice mail and left a message to return my call. DCP- Discharge Planning Updated by [id number]: Carmella Ramos on 04/11/20 7:[address] CM RECIEVED A MESSAGE FROM YAYO BURNETT CM WITH [employer] CALLED AND LEFT HER INFORMATION IF PATIENT NEEDS ANY HELP WITH DISCHARGE PLANS [phone] EXT [phone]. DCPIA - Discharge Planning Initial Assessment Updated by [id number]: Carmella Ramos on 04/18/20 4:33 pm * Is the patient Alert and Oriented? Yes * How many steps to enter\exit or inside your home? * PCP ARIAS * Pharmacy [facility] * Preadmission Environment Home with Family * ADLs Independent * Equipment Walker * Other Equipment LIFT CHAIR * List name and contact numbers for known caregivers / representatives who currently or will assist patient after discharge: SLIME CROWLEY - SPOUSE - [phone] * Verbal permission to speak to the caregivers and representatives has been obtained from the patient. Yes * Community resources currently utilized Home Health * Please name any agencies selected above. [facility] * Additional services required to return to the preadmission environment? Yes * Can the patient safely return to the preadmission environment? No * Has this patient been hospitalized within the prior 30 days at any hospital? Yes Coverage Notice Reviewer: [email or web address] Jass Colon Notice Issued Date-Time: 04/30/2020 15:45 Notice Type: Patient Choice Letter Notice Delivered To: Family Member Relationship to Patient: Spouse Inside Contractor Sales Name: Delivery Method: HAND - Hand Delivered Gabrielle Days: Prior Verbal Notification: Recipient Understood Notice: Yes Recipient Signature: Yes Med Rec Note Co-signed by Attending: Coverage Notice Comment: SALLY FOR [facility] and [facility] and [facility] inpatient rehab. Last DP export: 04/30/20 2:54 pm Patient Name: CURLY CROWLEY Page 19104 at 1333 All edits/amendments must be made on the electronic document DICTATION DATE: 05/01/202 CHAIR MECHANIC: GARY 05/01/20 133 RPT#: [id number] DC DATE: STATUS: ADM IN [facility] [address] [place] [address] END OF REPORT
--- NOTE | 2020-05-01 13:53 | PN ---
PATIENT:CURLY CROWLEY MEDICAL RECORD: [id number] LOCATION:[address] ADMISSION DATE: 04/05/20 PROGRESS NOTE DATE OF SERVICE: 04/30/2020 SUBJECTIVE: The patient's case was discussed with staff. He has no new complaint. OBJECTIVE: The patient is oriented fully. He did, however, think this is the April, instead of the , but I am going to count that since he has been in the hospital for a month. His mood is euthymic. His affect is appropriate. Thought processes are goal directed. ASSESSMENT: Delirium, resolved. PLAN: This patient has been quite confused in the hospital here and at other times intact. As stated before, when he is confused it typically has been related to respiratory failure and hypoxia or hypercapnia. I have reviewed the chart and the note from the television director is certainly not very encouraging about his long-term prognosis. I do not see any reason for him to be admitted to the behavioral unit, but he may develop some behavior problems while on rehabilitation. If so, I would be happy to see him again and assess the situation as best I can. There is certainly no evidence of direct or acute dangerousness. TRANSINT:[id number] Voice Confirmation ID: [id number] DOCUMENT ID: [id number] LAVERNE SOLIS MD at 1353 CC: [id number] DICTATION DATE: 04/30/20 1655 HEEL DIPPER: 05/01/20 0312 ADM IN [place] [id number] [place] [address]
--- NOTE | 2020-05-01 14:13 | NUR ---
Rehab Note- Called [facility], was able to speak with someone that I was transferred over to [place] with [employer] team & stated that its says case is pending review in their system awaiting clinicals. Informed her that I had a fax confirmation from Thursday04/27/2020 @ 1214 that 99pgs of clinicals were received. Checked to see if they were awaiting to be uploaded & stated that they weren't. Informed her that I had put in the request as Urgent on Thursday which she verified, faxed clinicals w/ updated clinicals at this time @ confirmation that 103pgs were received @ 1114. @ 1400 called & left voicemail w/ Carmen Obinna that was is nurse case manger during his last acute hospital stay to see if she could assist w/ PreAuth process- will await return call @ this time. Will continue to await determination at this time. Thank you for this referral! Tamara Mena RN Clinical Liaison, [facility] Rehab
--- NOTE | 2020-05-01 14:28 | NUR ---
Rehab Note- Received return call from Carmen with , stated that she has reached out ot her supervisor intelligence analyst about concerns of clinicals not being received on Friday 04/27, but states she now sees where the clinicals have been uploaded for review today from fax earlier today fot Acute Inpatient Rehab PreAuth admit. Stated she had also spoken with Rhonda Colon CM on the acute side of the hospital today. Will continue to follow and await determination. Thank you for this referral! Tamara Mena RN Clinical Liaison, [facility] Rehab
--- NOTE | 2020-05-01 15:47 | NUR ---
OT NOTE: (AM) PT COMPLETED SIT TO STAND WITH SBA. PT COMPLETED ADL MOB WITH CGA. PT COMPLETED UB HYGIENE TASKS WITH MIN A. (PM) PT COMPLETED SITTING BALANCE WITH SBA. PT COMPLETED HAND AND FACE HYGIENE WITH SETUP WHILE SEATED. [phone] THANK YOU,VALERIO SAINI
--- NOTE | 2020-05-01 16:48 | NUR ---
ALERT AND ORIENTED X4. SHOWER AND LINEN CHANGE COMPLETE. TRILOGY DELIVERED TO ROOM.
[2020-05-01 18:29] VITALS: BP 107/65
--- NOTE | 2020-05-01 19:00 | NUR ---
REPORT RECEIVED, WILL CONTINUE POC. PATIENT IS AAOX4, SITTING UP IN CHAIR. NO S/S OF DISTRESS OBSERVED, RR EVEN AND UNLABORED ON 2L O2 VIA NC. PATIENT DENIES NEEDS AT THIS TIME. CL IN REACH, BED LOCKED AND LOWERED. WILL CTM.
[2020-05-01 20:00] VITALS: BP 100/65
[2020-05-02] VITALS: BP 108/69
--- NOTE | 2020-05-02 01:35 | NUR ---
PATIENT C/O BACK PAIN. PRN TYLENOL ADMINISTERED PER ORDERS. PATIENT UP TO CHAIR. CL IN REACH, NING ALARM ON.
--- NOTE | 2020-05-02 03:35 | NUR ---
I have reviewed this patient and I concur with the Shift Assessment completed by the Licensed Practical Nurse today this shift.
[2020-05-02 04:00] VITALS: BP 106/66
[2020-05-02 05:11] LABS: BASOPHILS 0.2 % (0-2); EOSINOPHILS 5.1 % (0-7); HEMATOCRIT 33.1 % (42.0-54.0); HEMOGLOBIN 10.1 g/dL (13.5-17.5); IMMATURE GRANULOCYTES 0.9 % (0-5); LYMPHOCYTES 25.2 % (15-50); MCH 25.3 pg (26.0-34.0); MCHC 30.5 g/dL (31.0-37.0); MEAN PLATELET VOLUME 8.8 fL (7.4-10.4); MONOCYTES 10.4 % (2-11); NEUTROPHILS 58.2 % (40-80); PLATELET COUNT 302 10x3/uL (130-400); RBC 3.99 10x6/uL (4.20-6.10); RDW 14.6 % (11.5-14.5); WBC 6.4 10x3/uL (4.8-10.8)
[2020-05-02 05:37] LABS: ANION GAP 7.7 mmol/L (8-16); CALCIUM 9.4 mg/dL (8.5-10.1); CARBON DIOXIDE 32.4 mmol/L (21.0-32.0); POTASSIUM - SERUM 4.1 mmol/L (3.5-5.1)
[2020-05-02 05:44] LABS: CREATININE - SERUM 1.8 mg/dL (0.6-1.3)
--- NOTE | 2020-05-02 07:33 | NUR ---
REPORT RECEIVED. PT SITTING UP IN BEDSIDE CHAIR. STATES HE DID NOT SLEEP VERY WELL LAST NIGHT. RR EVEN AND UNLABORED ON 2L NC. HE CURRENTLY HAS NO IV ACCESS. CHAIR LOCKED AND IN LOWEST POSITION, CALL LIGHT WITHIN REACH. WILL CTM
--- NOTE | 2020-05-02 08:23 | MORECARE ---
CASE MANAGEMENT DISCHARGE SUMMARY PATIENT: CURLY CROWLEY UNIT: [id number] ADM DATE: 04/05/20 AGE: 64 : 53 SEX: M ROOM/BED: D.2110 AUTHOR: MAT,DOC PHYSICIAN: REFERRING PHYSICIAN: CLAYTON FOWLER MD DATE OF SERVICE: 05/02/20 Discharge Plan Patient Name: CURLY CROWLEY Facility: [facility]:[place] : 1955 Planned Disposition: Anticipated Discharge Date: Discharge Date: Expected LOS: Initial Reviewer: [id number] Initial Review Date: 04/05/2020 Generated: 05/02/20 9:22 am Comments DCP- Discharge Planning Updated by [id number]: Rhonda Colon on 05/02/20 7:[address] I spoke with patient about trilogy, he states "I used it for about 25 minutes last night." I encouraged him to use his trilogy. He states if insurance approves, he would still like to go down to inpatient rehab for "a few days." prior to going home. I have informed Freddy with [facility] that he will need nebulizer at discharge and oxygen. I faxed the order. His neb meds he will need to get at his pharmacy since he is private insurance. CM will continue to follow and assist with discharge planning/needs. DCP- Discharge Planning Updated by [email or web address]: Rhonda Isaiah on 05/01/20 12:[address] I spoke with Freddy with [facility] and he has been approved for his Trilogy. [facility] will deliver it to the hospital today. I called health insurance sales agent Yayo and left a message to see if she could expedite the process to get him approved for inpatient rehab. CM will continue to follow and assist with discharge planning/needs. DCP- Discharge Planning Updated by [email or web address]: Rhonda Colon on 04/30/20 2:[address] I spoke with Dr. Saez about Trilogy order and he would like him to have a trilogy. I spoke with patient and he agrees. Patient states to call his for DME preference. I called [phone] and spoke with patient's , she would like to use [facility]. I called Freddy and informed her and clinical faxed. CM will continue to follow and assist with discharge planning/needs. DCP- Discharge Planning Updated by [id number]: Sherry Stoddard on 04/27/20 4:[address] LATE ENTRY 1445 CM REC CB FROM ACUTE REHAB SCREENER, BHAVANI. THE REQUEST FOR AUTH HAS BEEN SUBMITTED TO [employer]. AWAITING AUTH. NEED TRILOGY ORDERS. DCP- Discharge Planning Updated by [id number]: Sherry Stoddard on 04/27/20 11:[address] AWAITING CONSULT BY DR SOLIS. AWAITING REHAB PRESCREEN. REPORTLY ORDERS FOR TRILOGY PROCUREMENT AT DISCHARGE. CM TO FOLLOW UP. DCP- Discharge Planning Updated by [id number]: Sherry Stoddard on 04/27/20 11:[address] PER CM NOTES TRANSFER TO [facility]. HOWEVER QUESTION PENDING FOR ACUTE IP REHAB. TC X2 TO REHAB SCREENER. LEFT VM MESSAGE. REC TC FROM [employer] [facility] REGARDING POSSIBLE WEEKEND DISCHARGE. DISCUSSED PLAN AT THIS TIME W/ STAR. [employer] WILL F/U ON THURSDAY. TC TO RESP THERAPIST TO VERIFY RESP NEEDS. DCP- Discharge Planning Updated by [id number]: Carmella Ramos on 04/26/20 10:[address] CM contacted [facility] to make sure they had received consult. CM faxed order to [phone]. Awaiting consult to see if patient can discharge to [facility]. CM will continue to follow and assist as needed with discharge planning / needs. DCP- Discharge Planning Updated by [id number]: Carmella Ramos on 04/18/20 3:[address] Patient Name: CURLY CROWLEY Admission Status: ER Accout number: [id number] Admission Date: 04-05-2020 : 1955 Admission Diagnosis:ALTERED MENTAL STATUS, UNSPECIFIED Attending: CLAYTON FOWLER Current LOS: 13 Anticipated DC Date: Planned Disposition: Primary Insurance: Parental [employer] Discharge Planning Comments: CM called and spoke with patient's spouse Slime to complete initial dc planning assessment. CM educated Slime on the CM role and verbal consent given by patient to complete assessment. Patient lives at home with family. Patient is independent. At discharge patient plans to return home and feels this is a safe discharge. CM discussed availability of home health, rehab services, and medical equipment. Patient has [facility] and they plan to resume care when discharged. SALLY signed. Slime would like [facility] IP rehab if patient will qualify. No preference in DME if patient requires 02 @ discharge. Patient will have family to transport home. Patient denied known discharge needs at this time. CM will continue to follow and will assist as needed with dc plans/needs. Asphalt Mixer: Carmella Ramos DCP- Discharge Planning Updated by [id number]: Rhonda Colon on 04/17/20 8:[address] CM called patient's at [phone] to discuss discharge planning/needs. I reached a voice mail and left a message to return my call. DCP- Discharge Planning Updated by [email or web address]: Carmella Ramos on 04/11/20 7:[address] CM RECIEVED A MESSAGE FROM YAYO BURNETT CM WITH [employer] CALLED AND LEFT HER INFORMATION IF PATIENT NEEDS ANY HELP WITH DISCHARGE PLANS [phone] EXT [phone]. DCPIA - Discharge Planning Initial Assessment Updated by [id number]: Carmella Ramos on 04/18/20 4:33 pm * Is the patient Alert and Oriented? Yes * How many steps to enter\\exit or inside your home? * PCP HUGO * Pharmacy [facility] * Preadmission Environment Home with Family * ADLs Independent * Equipment Walker * Other Equipment LIFT CHAIR * List name and contact numbers for known caregivers / representatives who currently or will assist patient after discharge: SLIME CROWLEY - SPOUSE - [phone] * Verbal permission to speak to the caregivers and representatives has been obtained from the patient. Yes * Community resources currently utilized Home Health * Please name any agencies selected above. [facility] * Additional services required to return to the preadmission environment? Yes * Can the patient safely return to the preadmission environment? No * Has this patient been hospitalized within the prior 30 days at any hospital? Yes Coverage Notice Reviewer: [id number] - Rhonda Colon Notice Issued Date-Time: 04/30/2020 15:45 Notice Type: Patient Choice Letter Notice Delivered To: Family Member Relationship to Patient: Spouse Conductor Yard Name: Delivery Method: HAND - Hand Delivered Gabrielle Days: Prior Verbal Notification: Recipient Understood Notice: Yes Recipient Signature: Yes Med Rec Note Co-signed by Attending: Coverage Notice Comment: SALLY FOR [facility] and [facility] and [facility] inpatient rehab. Last DP export: 05/01/20 12:33 pm Patient Name: CURLY CROWLEY Page 00116 at 0823 All edits/amendments must be made on the electronic document DICTATION DATE: 05/02/20821 PARAMEDICAL AIDE: GARY 05/02/20821 RPT#: [id number] DC DATE: STATUS: ADM IN [facility] [address] [place] [address] END OF REPORT
[2020-05-02 08:25] VITALS: BP 113/70
--- NOTE | 2020-05-02 10:22 | NUR ---
Rehab Note- Spoke w/ AARON Morales with stating that she had gotten authorization approval through their remote medical coder Dr. Garcia. Received VM from FABIOLA Coyle with the UR department with with approval for 7 day authorization approval #[id number]. Will accept the patient today if medically stable and ready for discharge from the acute hospital. Thank you for this referral! Tamara Mena RN Clinical Liaison, [facility] Rehab
[2020-05-02] MEDS ORDERED: BROVANA15 MCG/2 M INH (11:22)
[2020-05-02] MEDS ORDERED: IPRAT-ALBUT 0.5-3 ML UPD (11:22)
[2020-05-02] MEDS ORDERED: LOVENOX40 MG/0.4 SC (11:22)
[2020-05-02] MEDS ORDERED: COREG 3.1253.125 MG PO (11:22)
[2020-05-02] MEDS ORDERED: PULMICORT0.5 MG/21 UPD (11:23)
[2020-05-02] MEDS ORDERED: PROTONIX40 MG PO (11:23)
[2020-05-02] MEDS ORDERED: MELATONIN 3 MG1 TAB PO (11:24)
[2020-05-02] MEDS ORDERED: HUMALOG 30100 UNITS/ SC (11:24)
[2020-05-02 12:37] VITALS: BP 103/66
--- NOTE | 2020-05-02 13:06 | MORECARE ---
CASE MANAGEMENT DISCHARGE SUMMARY PATIENT: CURLY CROWLEY UNIT: [id number] ADM DATE: 04/05/20 AGE: 64 : 53 SEX: M ROOM/BED: D.2110 AUTHOR: MATDOC PHYSICIAN: REFERRING PHYSICIAN: CLAYTON FOWLER MD DATE OF SERVICE: 05/02/20 Discharge Plan Patient Name: CURLY CROWLEY Facility: [facility]:[place] : 1955 Planned Disposition: Anticipated Discharge Date: Discharge Date: Expected LOS: Initial Reviewer: [id number] Initial Review Date: 04/05/2020 Generated: 05/02/20 2:05 pm Comments DCP- Discharge Planning Updated by [id number]: Rhonda Colon on 05/02/20 12:[address] Patient Name: CURLY CROWLEY Encounter No: [id number] : 1955 Primary Insurance: [employer] Anticipated DC Date: Planned Disposition: External Planned Provider: : DCP follow-up note: Patient and family in agreement with discharge plan. No changes to plan. I called and s\\informed his that he is discharging today to inpatient rehab. I informed her that when he is discharged from inpatient rehab he should have his trilogy with him. I have notified [facility] that he will need his nebulizer. He will need a Rx for neb meds to his pharmacy. He will need a walk test prior to discharge from inpatient rehab to qualify for home oxygen needs. Case management will follow and assist as needed. Rhonda Isaiah DCP- Discharge Planning Updated by [id number]: Rhonda Colon on 05/02/20 7:[address] I spoke with patient about trilogy, he states "I used it for about 25 minutes last night." I encouraged him to use his trilogy. He states if insurance approves, he would still like to go down to inpatient rehab for "a few days." prior to going home. I have informed Freddy with [facility] that he will need nebulizer at discharge and oxygen. I faxed the order. His neb meds he will need to get at his pharmacy since he is private insurance. CM will continue to follow and assist with discharge planning/needs. DCP- Discharge Planning Updated by [id number]: Rhonda Colon on 05/01/20 12:[address] I spoke with Freddy with [facility] and he has been approved for his Trilogy. [facility] will deliver it to the hospital today. I called insurance account assistant Yayo and left a message to see if she could expedite the process to get him approved for inpatient rehab. CM will continue to follow and assist with discharge planning/needs. DCP- Discharge Planning Updated by [id number]: Rhonda Colon on 04/30/20 2:[address] I spoke with Dr. Saez about Trilogy order and he would like him to have a trilogy. I spoke with patient and he agrees. Patient states to call his for DME preference. I called [phone] and spoke with patient's , she would like to use [facility]. I called Freddy and informed her and clinical faxed. CM will continue to follow and assist with discharge planning/needs. DCP- Discharge Planning Updated by [id number]: Sherry Stoddard on 04/27/20 4:[address] LATE ENTRY 1445 CM REC CB FROM ACUTE REHAB SCREENER, BHAVANI. THE REQUEST FOR AUTH HAS BEEN SUBMITTED TO [employer]. AWAITING AUTH. NEED TRILOGY ORDERS. DCP- Discharge Planning Updated by [id number]: Sherry Stoddard on 04/27/20 11:[address] AWAITING CONSULT BY DR SOLIS. AWAITING REHAB PRESCREEN. REPORTLY ORDERS FOR TRILOGY PROCUREMENT AT DISCHARGE. CM TO FOLLOW UP. DCP- Discharge Planning Updated by [id number]: Sherry Stoddard on 04/27/20 11:[address] PER CM NOTES TRANSFER TO [facility]. HOWEVER QUESTION PENDING FOR ACUTE IP REHAB. TC X2 TO REHAB SCREENER. LEFT VM MESSAGE. REC TC FROM [employer] REGARDING POSSIBLE WEEKEND DISCHARGE. DISCUSSED PLAN AT THIS TIME W/ [facility]. [facility] WILL F/U ON THURSDAY. TC TO RESP THERAPIST TO VERIFY RESP NEEDS. DCP- Discharge Planning Updated by [id number]: Carmella Ramos on 04/26/20 10:[address] CM contacted [facility] to make sure they had received consult. CM faxed order to [phone]. Awaiting consult to see if patient can discharge to [facility]. CM will continue to follow and assist as needed with discharge planning / needs. DCP- Discharge Planning Updated by [id number]: Carmella Ramos on 04/18/20 3:[address] Patient Name: CURLY CROWLEY Admission Status: ER Accout number: [id number] Admission Date: 04-05-2020 : 1955 Admission Diagnosis:ALTERED MENTAL STATUS, UNSPECIFIED Attending: CLAYTON FOWLER Current LOS: 13 Anticipated DC Date: Planned Disposition: Primary Insurance: [employer] Discharge Planning Comments: CM called and spoke with patient's spouse Slime to complete initial dc planning assessment. CM educated Slime on the CM role and verbal consent given by patient to complete assessment. Patient lives at home with family. Patient is independent. At discharge patient plans to return home and feels this is a safe discharge. CM discussed availability of home health, rehab services, and medical equipment. Patient has [facility] and they plan to resume care when discharged. SALLY signed. Slime would like [facility] IP rehab if patient will qualify. No preference in DME if patient requires 02 @ discharge. Patient will have family to transport home. Patient denied known discharge needs at this time. CM will continue to follow and will assist as needed with dc plans/needs. Gettering Operator: Carmella Ramos DCP- Discharge Planning Updated by [id number]: Rhonda Colon on 04/17/20 8:[address] CM called patient's at [phone] to discuss discharge planning/needs. I reached a voice mail and left a message to return my call. DCP- Discharge Planning Updated by [id number]: Carmella Ramos on 04/11/20 7:[address] CM RECIEVED A MESSAGE FROM YAYO BURNETT CM WITH [facility] CALLED AND LEFT HER INFORMATION IF PATIENT NEEDS ANY HELP WITH DISCHARGE PLANS [phone] EXT [phone]. DCPIA - Discharge Planning Initial Assessment Updated by [id number]: Carmella Ramos on 04/18/20 4:33 pm * Is the patient Alert and Oriented? Yes * How many steps to enter\\exit or inside your home? * PCP ARIAS * Pharmacy [facility] * Preadmission Environment Home with Family * ADLs Independent * Equipment Walker * Other Equipment LIFT CHAIR * List name and contact numbers for known caregivers / representatives who currently or will assist patient after discharge: SLIME CROWLEY - SPOUSE - [phone] * Verbal permission to speak to the caregivers and representatives has been obtained from the patient. Yes * Community resources currently utilized Home Health * Please name any agencies selected above. [facility] * Additional services required to return to the preadmission environment? Yes * Can the patient safely return to the preadmission environment? No * Has this patient been hospitalized within the prior 30 days at any hospital? Yes Coverage Notice Reviewer: [id number] Jass Colon Notice Issued Date-Time: 04/30/2020 15:45 Notice Type: Patient Choice Letter Notice Delivered To: Family Member Relationship to Patient: Spouse Data Science And Iot Manager Name: Delivery Method: HAND - Hand Delivered Gabrielle Days: Prior Verbal Notification: Recipient Understood Notice: Yes Recipient Signature: Yes Med Rec Note Co-signed by Attending: Coverage Notice Comment: SALLY FOR [facility] and [facility] and [facility] inpatient rehab. Last DP export: 05/02/20 7:23 a Patient Name: CURLY CROWLEY Page [phone] at 1306 All edits/amendments must be made on the electronic document DICTATION DATE: 05/02/20 1305 CALCINER FEEDER: GARY 05/02/20 1305 RPT#: [id number] DC DATE: STATUS: ADM IN [facility] [address] [place] [address] END OF REPORT
[2020-05-02] MEDS ORDERED: FLORAJEN3 CAPS460 MG PO (13:07)
[2020-05-02] MEDS ORDERED: FAMOTIDINE10 MG PO (13:08)
[2020-05-02] MEDS ORDERED: K-DUR20 MEQ PO (13:08)
--- NOTE | 2020-05-02 14:39 | NUR ---
I have reviewed this patient and I concur with the Shift Assessment completed by the Licensed Practical Nurse today this shift.
--- NOTE | 2020-05-02 14:45 | NUR ---
SPOKE WITH REHAB TO FIND OUT WHAT THE HOLD UP WAS ON GETTING A ROOM NUMBER, JEM STATED THEY WERE WAITING ON TO APPROVE THE PTS SCREEN, THEN THEY WOULD CALL ME WITH A ROOM NUMBER.
--- NOTE | 2020-05-02 17:06 | NUR ---
REPORT GIVEN TO HANY. PT TRANSPORTED VIA WHEELCHAIR TO REHAB. ALL BELONGINGS TAKEN WITH PT AT THIS TIME.
--- NOTE | 2020-05-03 08:37 | MORECARE ---
CASE MANAGEMENT DISCHARGE SUMMARY PATIENT: CURLY CROWLEY UNIT: [id number] ADM DATE: 04/05/20 AGE: 64 : 51 SEX: M ROOM/BED: D.2110 AUTHOR: MATDOC PHYSICIAN: REFERRING PHYSICIAN: CLAYTON FOWLER MD DATE OF SERVICE: 05/03/20 Discharge Plan Patient Name: CURLY CROWLEY Facility: [facility]:[place] : 1955 Planned Disposition: Anticipated Discharge Date: Discharge Date: 05/02/2020 Expected LOS: Initial Reviewer: [email or web address] Initial Review Date: 04/05/2020 Generated: 05/03/20 9:36 am Comments DCP- Discharge Planning Updated by [id number]: Rhonda Colon on 05/02/20 12:[address] Patient Name: CURLY CROWLEY Encounter No: [id number] : 1955 Primary Insurance: [employer] Anticipated DC Date: Planned Disposition: External Planned Provider: : DCP follow-up note: Patient and family in agreement with discharge plan. No changes to plan. I called and s\\informed his that he is discharging today to inpatient rehab. I informed her that when he is discharged from inpatient rehab he should have his trilogy with him. I have notified [facility] that he will need his nebulizer. He will need a Rx for neb meds to his pharmacy. He will need a walk test prior to discharge from inpatient rehab to qualify for home oxygen needs. Case management will follow and assist as needed. Rhonda Colon DCP- Discharge Planning Updated by [id number]: Rhonda Isaiah on 05/02/20 7:[address] I spoke with patient about trilogy, he states "I used it for about 25 minutes last night." I encouraged him to use his trilogy. He states if insurance approves, he would still like to go down to inpatient rehab for "a few days." prior to going home. I have informed Freddy with [facility] that he will need nebulizer at discharge and oxygen. I faxed the order. His neb meds he will need to get at his pharmacy since he is private insurance. CM will continue to follow and assist with discharge planning/needs. DCP- Discharge Planning Updated by [id number]: Rhonda Colon on 05/01/20 12:[address] I spoke with Freddy with [facility] and he has been approved for his Trilogy. Simone will deliver it to the hospital today. I called insurance policy clerk Yayo and left a message to see if she could expedite the process to get him approved for inpatient rehab. CM will continue to follow and assist with discharge planning/needs. DCP- Discharge Planning Updated by [id number]: Rhonda Colon on 04/30/20 2:[address] I spoke with Dr. Saez about Trilogy order and he would like him to have a trilogy. I spoke with patient and he agrees. Patient states to call his for DME preference. I called [phone] and spoke with patient's , she would like to use [facility]. I called Freddy and informed her and clinical faxed. CM will continue to follow and assist with discharge planning/needs. DCP- Discharge Planning Updated by [id number]: Sherry Stoddard on 04/27/20 4:[address] LATE ENTRY 1445 CM REC CB FROM ACUTE REHAB SCREENERBHAVANI. THE REQUEST FOR AUTH HAS BEEN SUBMITTED TO [facility]. AWAITING AUTH. NEED TRILOGY ORDERS. DCP- Discharge Planning Updated by [id number]: Sherry Stoddard on 04/27/20 11:[address] AWAITING CONSULT BY DR SOLIS. AWAITING REHAB PRESCREEN. REPORTLY ORDERS FOR TRILOGY PROCUREMENT AT DISCHARGE. CM TO FOLLOW UP. DCP- Discharge Planning Updated by [id number]: Sherry Stoddard on 04/27/20 11:[address] PER CM NOTES TRANSFER TO [facility] PEND[facility]. HOWEVER QUESTION PENDING FOR ACUTE IP REHAB. TC X2 TO REHAB SCREENER. LEFT VM MESSAGE. REC TC FROM [employer] REGARDING POSSIBLE WEEKEND DISCHARGE. DISCUSSED PLAN AT THIS TIME W/ [facility]. [facility] WILL F/U ON THURSDAY. TC TO RESP THERAPIST TO VERIFY RESP NEEDS. DCP- Discharge Planning Updated by [id number]: Carmella Ramos on 04/26/20 10:[address] CM contacted [facility] to make sure they had received consult. CM faxed order to [phone]. Awaiting consult to see if patient can discharge to [facility]. CM will continue to follow and assist as needed with discharge planning / needs. DCP- Discharge Planning Updated by [id number]: Carmella Ramos on 04/18/20 3:[address] Patient Name: CURLY CROWLEY Admission Status: ER Accout number: [id number] Admission Date: 04-05-2020 : 1955 Admission Diagnosis:ALTERED MENTAL STATUS, UNSPECIFIED Attending: CLAYTON FOWLER Current LOS: 13 Anticipated DC Date: Planned Disposition: Primary Insurance: [employer] Discharge Planning Comments: CM called and spoke with patient's spouse Slime to complete initial dc planning assessment. CM educated Slime on the CM role and verbal consent given by patient to complete assessment. Patient lives at home with family. Patient is independent. At discharge patient plans to return home and feels this is a safe discharge. CM discussed availability of home health, rehab services, and medical equipment. Patient has [facility] and they plan to resume care when discharged. SALLY signed. Slime would like [facility] IP rehab if patient will qualify. No preference in DME if patient requires 02 @ discharge. Patient will have family to transport home. Patient denied known discharge needs at this time. CM will continue to follow and will assist as needed with dc plans/needs. Brazing Machine Setter: Carmella Ramos DCP- Discharge Planning Updated by [id number]: Rhonda Colon on 04/17/20 8:[address] CM called patient's at [phone] to discuss discharge planning/needs. I reached a voice mail and left a message to return my call. DCP- Discharge Planning Updated by [id number]: Carmella Ramos on 04/11/20 7:[address] CM RECIEVED A MESSAGE FROM YAYO BURNETT CM WITH [facility] CALLED AND LEFT HER INFORMATION IF PATIENT NEEDS ANY HELP WITH DISCHARGE PLANS [phone] EXT [phone]. DCPIA - Discharge Planning Initial Assessment Updated by [id number]: Carmella Ramos on 04/18/20 4:33 pm * Is the patient Alert and Oriented? Yes * How many steps to enter\\exit or inside your home? * PCP ARIAS * Pharmacy [facility] * Preadmission Environment Home with Family * ADLs Independent * Equipment Walker * Other Equipment LIFT CHAIR * List name and contact numbers for known caregivers / representatives who currently or will assist patient after discharge: SLIME CROWLEY - SPOUSE - [phone] * Verbal permission to speak to the caregivers and representatives has been obtained from the patient. Yes * Community resources currently utilized Home Health * Please name any agencies selected above. [facility] * Additional services required to return to the preadmission environment? Yes * Can the patient safely return to the preadmission environment? No * Has this patient been hospitalized within the prior 30 days at any hospital? Yes Coverage Notice Reviewer: [email or web address] Jass Colon Notice Issued Date-Time: 04/30/2020 15:45 Notice Type: Patient Choice Letter Notice Delivered To: Family Member Relationship to Patient: Spouse Sustainability Specialist Name: Delivery Method: HAND - Hand Delivered Gabrielle Days: Prior Verbal Notification: Recipient Understood Notice: Yes Recipient Signature: Yes Med Rec Note Co-signed by Attending: Coverage Notice Comment: SALLY FOR [facility] and [facility] and [facility] inpatient rehab. Last DP export: 05/02/20 12:06 p Patient Name: CURLY CROWLEY Page [phone] at 0837 All edits/amendments must be made on the electronic document DICTATION DATE: 05/03/20835 OUTREACH CONSULTANT: GARY 05/03/20835 RPT#: [id number] DC DATE:05/02/20 STATUS: DIS IN [facility] [address] [place] [address] END OF REPORT
== END 2020-05-02 17:08 | DRG 637 ==
LOC: D.ER 11:16 → D.CVICU 13:15 → D.ICU 13:15 → D.M2 13:15 → D.ICU 04-11 → D.M2 04-13 16:11 → D.CVICU 04-17 12:47 → D.ICU 04-25 19:42 → D.M2 04-28 17:58
PROVIDERS: Emergency Medicine; Family Medicine; Internal Medicine Nephrology; Internal Medicine Pulmonary Disease; ADMIT Family Medicine; ATTEND Family Medicine
PROC: 5A1935Z Respiratory Ventilation, Less than 24 Consecutive Hours (ICD-10-PCS; principal; 2020-04-11)
PROC: 0BH17EZ Insertion of Endotracheal Airway into Trachea, Via Natural or Artificial Opening (ICD-10-PCS; 2020-04-11)
PROC: 0HB1XZX Excision of Face Skin, External Approach, Diagnostic (ICD-10-PCS; 2020-04-16)
DX: E11.628 Type 2 diabetes mellitus with other skin complications (principal); G93.41 Metabolic encephalopathy; J96.21 Acute and chronic respiratory failure with hypoxia; I50.23 Acute on chronic systolic (congestive) heart failure; L03.116 Cellulitis of left lower limb; E87.1 Hypo-osmolality and hyponatremia; Z68.41 Body mass index [BMI] 40.0-44.9, adult; N39.0 Urinary tract infection, site not specified; I13.0 Hypertensive heart and chronic kidney disease with heart failure and stage 1 through stage 4 chronic kidney disease, or unspecified chronic kidney disease; J44.1 Chronic obstructive pulmonary disease with (acute) exacerbation; E11.65 Type 2 diabetes mellitus with hyperglycemia; N17.0 Acute kidney failure with tubular necrosis; E78.5 Hyperlipidemia, unspecified; D64.9 Anemia, unspecified; E66.01 Morbid (severe) obesity due to excess calories; E87.5 Hyperkalemia; E11.22 Type 2 diabetes mellitus with diabetic chronic kidney disease; N18.9 Chronic kidney disease, unspecified; R41.0 Disorientation, unspecified; I11.0 Hypertensive heart disease with heart failure; N17.9 Acute kidney failure, unspecified; E03.9 Hypothyroidism, unspecified; C43.39 Malignant melanoma of other parts of face; G89.29 Other chronic pain; G47.33 Obstructive sleep apnea (adult) (pediatric); E83.42 Hypomagnesemia

== ENCOUNTER 2020-05-02 15:10 | Inpatient (IN) | payer BC ==
[~2020-05-02] VITALS: Ht 177.8 cm; Wt 108.0 kg
[~2020-05-02 15:10] MED LIST changes: +BROVANA15 MCG/2 M INH; +COREG 3.1253.125 MG PO; +FAMOTIDINE10 MG PO; +FLORAJEN3 CAPS460 MG PO; +HUMALOG 30100 UNITS/ SC; +IPRAT-ALBUT 0.5-3 ML UPD; +K-DUR20 MEQ PO; +LOVENOX40 MG/0.4 SC; +MELATONIN 3 MG1 TAB PO; +PROTONIX40 MG PO; +PULMICORT0.5 MG/21 UPD
--- NOTE | 2020-05-02 16:40 | NUR ---
RECIEVED FROM ACUTE FLOOR TO ROOM 1108B;ORIENTED TO ROOM AND SURROUNDINGS.CL IN REACH.
[2020-05-02 18:19] VITALS: BP 132/88; BMI 34.2
--- NOTE | 2020-05-02 19:10 | NUR ---
PT SITTING UP ON SIDE OF BED. O2 ON 2L VIA NC. CL IN REACH. BED ALARM ON. DENIES NEEDS AT THIS TIME. A/O X4. RESP EVEN AND UNLABORED. LUNGS DIMINISHED. BOWEL ACTIVE X4. WILL CONTINUE TO MONITOR.
[2020-05-02 21:10] VITALS: BP 106/72
--- NOTE | 2020-05-03 00:14 | NUR ---
I have reviewed this patient and I concur with the Shift Assessment completed by the Licensed Practical Nurse today this shift.
[2020-05-03 07:09] LABS: ANION GAP 7.4 mmol/L (8-16); CALCIUM 8.7 mg/dL (8.5-10.1); CARBON DIOXIDE 34.8 mmol/L (21.0-32.0); CREATININE - SERUM 1.5 mg/dL (0.6-1.3); POTASSIUM - SERUM 4.2 mmol/L (3.5-5.1)
[2020-05-03 07:49] LABS: HEMATOCRIT 34.5 % (42.0-54.0); HEMOGLOBIN 10.8 g/dL (13.5-17.5); LYMPHOCYTES 21.4 % (15-50); MCH 25.9 pg (26.0-34.0); MCHC 31.3 g/dL (31.0-37.0); MCV 82.7 fL (80.0-100.0); MEAN PLATELET VOLUME 8.7 fL (7.4-10.4); NEUTROPHILS 64.3 % (40-80); PLATELET COUNT 271 10x3/uL (130-400); RBC 4.17 10x6/uL (4.20-6.10); RDW 14.3 % (11.5-14.5); WBC 6.2 10x3/uL (4.8-10.8)
[2020-05-03 08:00] VITALS: BP 111/67
--- NOTE | 2020-05-03 09:38 | NUR ---
0700 RECEIVED BEDSIDE REPORT FROM NIGHT NURSE INTRODUCED MYSELF TO PATIENT ASSESSMENT COMPLETE DISCUSSION WITH PATIENT REGARDING TRILOGY USE
[2020-05-03 13:13] VITALS: Ht 177.8 cm; Wt 108.0 kg
--- NOTE | 2020-05-03 13:19 | NUR ---
1130 BLOOD SUGAR 111
--- NOTE | 2020-05-03 17:09 | NUR ---
1530 AMBULATING AROUND IN ROOM WITHOUT COMPLICATIONS
--- NOTE | 2020-05-03 17:11 | NUR ---
1630 BLOOD SUGAR 105
--- NOTE | 2020-05-03 19:13 | NUR ---
PT SITTING UP ON SIDE OF BED WITH TRIOLOGY ON. CL IN REACH. DENIES NEEDS AT THIS TIME. BED IN LOW SIDE RAILS X2. A/O X4. LUNGS DIMINISHED. BOWEL ACTIVE X4. RESP EVEN AND UNLABORED. WILL CONTINUE TO MONITOR.
[2020-05-03 20:01] VITALS: BP 103/63
--- NOTE | 2020-05-04 00:10 | NUR ---
I have reviewed this patient and I concur with the Shift Assessment completed by the Licensed Practical Nurse today this shift.
--- NOTE | 2020-05-04 05:09 | NUR ---
PT HAS BEEN UP AND DOWN ALL NIGHT WITH NOT MUCH REST. PT STATES READY TO GO HOME TODAY. CL IN REACH. BED ALARM ON. WCTM
[2020-05-04 05:24] LABS: BASOPHILS 0.2 % (0-2); EOSINOPHILS 6.5 % (0-7); HEMATOCRIT 31.7 % (42.0-54.0); HEMOGLOBIN 9.5 g/dL (13.5-17.5); IMMATURE GRANULOCYTES 1.1 % (0-5); LYMPHOCYTES 25.2 % (15-50); MCH 25.4 pg (26.0-34.0); MEAN PLATELET VOLUME 8.9 fL (7.4-10.4); MONOCYTES 11.4 % (2-11); NEUTROPHILS 55.6 % (40-80); PLATELET COUNT 227 10x3/uL (130-400); RBC 3.74 10x6/uL (4.20-6.10); RDW 14.9 % (11.5-14.5); WBC 6.2 10x3/uL (4.8-10.8)
[2020-05-04 05:25] LABS: MCV 84.8 fL (80.0-100.0)
[2020-05-04 05:53] LABS: ANION GAP 5.9 mmol/L (8-16); CARBON DIOXIDE 33.1 mmol/L (21.0-32.0); CREATININE - SERUM 1.5 mg/dL (0.6-1.3)
--- NOTE | 2020-05-04 07:26 | NUR ---
PT SITTING UP IN BED. RR EVEN AND UNLABORED ON 2L NC. EYES CLOSED. BED IN LOWEST POSITION. NO DISTRESS NOTED. CALL LIGHT WITHIN REACH. WILL CONTINUE TO MONITOR.
[2020-05-04 07:49] VITALS: BP 107/60
--- NOTE | 2020-05-04 15:17 | NUR ---
PATIENT ADMITTED TO REHAB FROM ACUTE FLOOR. DR. SKELTON IS PATIENT PCP. ORDERS FOR PATIENT TRILOGY , NEBULIZER AND O2 HAS BEEN FAXED TO [facility]. PATIENT IS A CLIENT OF [facility]. WILL CONTINUE TO FOLLOW WITH PATIENT. DISCHARGE PLANS ARE FOR PATIENT TO RETURN HOME.
--- NOTE | 2020-05-04 19:11 | NUR ---
PATIENT RECEIVED SITTING UP IN BED. ASSESSMENT & VITAL SIGNS DONE. NO C/O PAIN OR DISTRESS. BED LOW. ALARM ON. CALL LIGHT WITHIN REACH. WILL CONTINUE TO MONITOR.
[2020-05-04 20:00] VITALS: BP 103/56
--- NOTE | 2020-05-05 01:39 | NUR ---
I have reviewed this patient and I concur with the Shift Assessment completed by the Licensed Practical Nurse today this shift.
--- NOTE | 2020-05-05 03:34 | NUR ---
PATIENT EYES CLOSED. TRILOGY CONTINUES PER ORDER. BED LOW. ALARM ON. CALL LIGHT WITHIN REACH. WILL CONTINUE TO MONITOR.
--- NOTE | 2020-05-05 05:41 | NUR ---
PATIENT REFUSED TO TAKE SHOWER X 3. IS WAITING FOR TO BRING HIS CLOTHES. BED LOW. CALL LIGHT WITHIN REACH. WILL CONTINUE TO MONITOR.
[2020-05-05 08:00] VITALS: BP 108/65
--- NOTE | 2020-05-05 08:00 | NUR ---
SHIFT ASSMT COMPLETED.
--- NOTE | 2020-05-05 19:32 | NUR ---
PATIENT RECEIVED SITTING UP IN WHEELCHAIR. ASSESSMENT & VITAL SIGNS DONE. NO C/O PAIN OR DISTRESS. BED LOW. CALL LIGHT WITHIN REACH. WILL CONTINUE TO MONITOR.
[2020-05-05 20:00] VITALS: BP 94/40
--- NOTE | 2020-05-05 23:49 | NUR ---
I have reviewed this patient and I concur with the Shift Assessment completed by the Licensed Practical Nurse today this shift.
[2020-05-06 00:03] VITALS: BP 111/69
--- NOTE | 2020-05-06 00:48 | NUR ---
PATIENT AWAKE WANTED B/P TAKEN AGAIN. BP WAS 111/65 P 77. PATIENT NOT WORRIED ABOUT BP & WAS GOING BACK TO SLEEP WITH O2@3LNC. DID NOT WANT HIS TRILOGY ON. BED LOW. CALL LIGHT WITHIN REACH. WILL CONTINUE TO MONITOR.
--- NOTE | 2020-05-06 05:18 | NUR ---
PATIENT ON TRILOGY FOR PAST 3 HOURS. EYES CLOSED. BED LOW. CALL LIGHT WITHIN REACH. WILL CONTINUE TO MONITOR.
--- NOTE | 2020-05-06 08:00 | NUR ---
SHIFT ASSMT COMPLETED.CL IN REACH.BREAKFAST GIVEN.
[2020-05-06 08:15] VITALS: BP 121/71
--- NOTE | 2020-05-06 12:00 | NUR ---
SITTING UP EATING LUNCH.DENIES NEEDS.
--- NOTE | 2020-05-06 19:24 | NUR ---
PATIENT RECEIVED SITTING UP IN BED. ASSESMENT & VITAL SIGNS DONE. NO C/O PAIN OR DISTRESS. BED LOW. TRILOGY ON. CALL LIGHT WITHIN REACH. WILL CONTINUE TO MONITOR.
[2020-05-06 20:27] VITALS: BP 123/68
--- NOTE | 2020-05-07 00:17 | NUR ---
I have reviewed this patient and I concur with the Shift Assessment completed by the Licensed Practical Nurse today this shift.
--- NOTE | 2020-05-07 02:32 | NUR ---
PATIENT GIVEN SHOWER. LINENS CHANGED. PATIENT IN LOW BED. FEET ON PILLOW. CALL LIGHT WITHIN REACH. WILL CONTINUE TO MONITOR.
--- NOTE | 2020-05-07 07:10 | NUR ---
ALERT AND ORIENTED. NO C/O PAIN. CL IN REACH. EDEMA 3+ LLE. ELEVATED ON PILLOW.
[2020-05-07 07:44] VITALS: BP 118/75
--- NOTE | 2020-05-07 07:47 | RHP ---
PATIENT: CURLY CROWLEY MEDICAL RECORD: [id number] ACCOUNT: [id number] LOCATION:[facility]1108 : 53 ADMISSION DATE: 05/02/20 REHABILITATION HISTORY AND PHYSICAL EXAMINATION POST ADMISSION PHYSICIAN EXAMINATION ADMITTING DIAGNOSIS: Critical illness myopathy. HISTORY OF PRESENT ILLNESS: The patient is a 64-year-old morbidly obese gentleman who presented to the ED with acute mental status changes. He had been in the hospital recently for a left lower extremity cellulitis and kidney injury. He was followed by nephrology and podiatry. He felt like the acute kidney injury was secondary to acute tubular necrosis from lack of perfusion. He was discharged on 03/28/2020 on oral antibiotics with home health and creatinine of 2.9. On 04/05/2020, presented to the Emergency Room with altered mental status. He was lethargic and obtunded. He was admitted with acute kidney injury with creatinine of 4.4 upon admit, cellulitis and elevated potassium. The patient has been followed by nephrology throughout his stay for his potassium and also his creatinine. The patient also had a pulmonary consult due to hypercapnic respiratory failure. The patient was emergently intubated on 04/11/2020 and extubated on 04/12/2020. He was seen by [facility], noted to be rambling and coherent, refusing care, fighting staff. He was disrobing himself, pulling out his IV. He was fighting his BiPAP and required wrist restraints. His mental status has cleared during his acute hospital stay. He has been receiving physical and occupational therapy during his stay. He has had a prolonged hospital stay, progressing with therapy and recent hospitalization. He is being monitored closely for his O2 intake. Monitor his wounds, cellulitis, his anticoagulation therapy, his I's and O's, definitely his electrolytes and his blood sugars. He has got balance deficit, decreased activity tolerance, proximal muscle weakness, impaired mobility, decreased quality of life, decreased range of motion. He has got a gait disturbance, limited safety awareness. He is a medical complexity. He is risk for falls, cues for equipment. He has got low endurance, unsteady gait, balance, he fatigues easily. These are all barriers to his discharge home. He lives at home with his , was independent with ADLs and mobility prior to this. Currently set up for mod assist for ADLs, mod assist for mobility. He is using supplemental O2. He and his family will plan for him to return home at his prior level of functioning or better. COMORBIDITIES: Include weakness, delirium, altered mental status, renal injury, elevated troponin, metabolic encephalopathy, UTI, demand ischemia, diabetes, hyperlipidemia, morbid obesity with BMI greater than 40 and hypothyroidism. PAST MEDICAL HISTORY: Significant for neuropathy, hypertension, edema, peripheral vascular disease, chronic back pain, radiculopathy. PAST SURGICAL HISTORY: Includes appendectomy. ALLERGIES: No known drug allergies. CURRENT MEDICATIONS: Include Floranex daily, he is on Lovenox 40 mg subQ daily, Protonix 40 mg daily, potassium 20 mEq b.i.d., famotidine 20 mg b.i.d., albuterol updrafts as needed, budesonide 0.5 mg b.i.d., Brovana 15 mcg b.i.d., he is on a glucose replacement protocol, he is on melatonin 6 mg at bedtime, he is on a low-resistant sliding scale insulin, he is on carvedilol 3.125 mg b.i.d. HISTORY AND PHYSICAL [id number] CURLY CROWLEY with meals and MiraLax as needed. HABITS: No alcohol or tobacco use. FAMILY HISTORY: Noncontributory. SOCIAL HISTORY: The patient hopes to return back home and get back to his prior level of functioning. REVIEW OF SYSTEMS: GENERAL: Does complain of weakness and fatigue. HEENT: Denies cold, cough, or congestion. CARDIOVASCULAR: Denies any chest pain. PHYSICAL EXAMINATION: VITAL SIGNS: Stable, afebrile. GENERAL: A somewhat obese gentleman in no acute distress upon exam. HEENT: Normocephalic and atraumatic. Mucosa moist. NECK: Supple. No lymphadenopathy. LUNGS: Clear at this time. No wheezing, rhonchi or rales. HEART: Regular rate and rhythm. No murmurs, rubs, or gallops. ABDOMEN: Soft, benign, and nondistended. Positive bowel sounds times 4. EXTREMITIES: No clubbing, cyanosis. Does have changes from a cellulitis with some discoloration. NEUROLOGIC: Does have some proximal muscle weakness. LABORATORY DATA: White count is 6.2, H&H of 10.8 and 34.5 and platelet count is 271. His sodium is 138, potassium 4.2, BUN and creatinine of 28 and 1.5 and blood sugar is 113. ASSESSMENT: This is a 64-year-old gentleman admitted to the rehab with a working diagnosis of critical illness myopathy. The patient has potential to make improvement. We instituted the following multidisciplinary therapies include, but not limited to physical, occupational, respiratory, speech, nutritional services, prosthetics and orthotics. Given his complex medical condition and risks for more complications, rehabilitation services cannot be provided at a low level of care such as skilled nurse facility. PLAN: 1. Admit to [facility] for intensive inpatient therapy to include the following disciplines: A. Physical therapy to improve gait, all transfer skills and bed mobility to a modified independent level. B. Occupational therapy to improve activities of daily living. C. Case management to assist with discharge planning and placement options. D. Nutrition to assist with nutritional needs. E. Rehabilitation nursing to assist in monitoring the patient's underlying medical conditions and to assist with any type of bowel or bladder management. 2. The patient's current medication and medical care will be continued. 3. The patient will be placed on standard fall precautions. 4. The patient's estimated length of stay is approximately 7-10 days. 5. We will discuss this patient during care team staff meeting this week. We will follow his blood sugars closely and I am going to see again in the a.m. TRANSINT:[id number] Voice Confirmation ID: [id number] DOCUMENT ID: [id number] HISTORY AND PHYSICAL [id number] CURLY CROWLEY notes whether there has been none or any medical/functional change since admission: - No change since prescreen. GRAZYNA attests patient continues to be appropriate for IRF: - Continues to be appropriate. MELINA SERRANO MD at 0747 CC: [id number] DICTATION DATE: 05/03/20 0756 PRODUCTION INSPECTOR: 05/03/20 0846 ADM IN [place] [id number] [place] [address]
--- NOTE | 2020-05-07 09:58 | NUR ---
Nutrition Follow-up: Diet: Renal ADA PO intake: 100% x 8 meals Last BM: 05/06/20 x 2. WT: 238# (05/03/20) Meds noted: SSI. Labs noted: POC Glu 100 (WNL) Recommend continue current diet. RD following.
--- NOTE | 2020-05-07 10:57 | NUR ---
PARTICIPATED IN THERAPY THIS AM. NO C/O PAIN. IN ROOM AT THIS TIME. CL IN REACH.
--- NOTE | 2020-05-07 16:47 | NUR ---
O2 95% RA AT REST.
--- NOTE | 2020-05-07 17:00 | NUR ---
RESTING WO DISTRESS. TO BE DC'D HOME TOMORROW. CL IN REACH.
--- NOTE | 2020-05-07 19:30 | NUR ---
PT IN BED, AAO X 3. RESP EVEN AND UNLABORED. NO DISTRESS NOTED. CL IN REACH, SR UP X 2.
[2020-05-07 21:45] VITALS: BP 113/70
--- NOTE | 2020-05-07 23:17 | NUR ---
I have reviewed this patient and I concur with the Shift Assessment completed by the Licensed Practical Nurse today this shift.
--- NOTE | 2020-05-08 07:34 | NUR ---
ALERT AND ORIENTED. NO C/O PAIN. RESP EVEN AND UNLABORED. CL IN REACH.
[2020-05-08 09:33] VITALS: BP 121/80
--- NOTE | 2020-05-08 10:28 | NUR ---
NO CHANGE IN ASSESSMENT. PRESCRIPTIONS CALLED TO [facility] ON [facility]. TO DC HOME TODAY. DC INSTRUCTIONS GIVEN. VERBALIZES UNDERSTANDING. WILL ASSIST TO CAR IN WC PER STAFF.
--- NOTE | 2020-05-08 10:37 | NUR ---
PATIENT DSICHARGING HOME WITH FAMILY TODAY. [facility] WILL RESUME THERAPY AT HOME. [facility] HAS DELIVERED A TRIOLOGY AND NEBULIZER TO PATIENT. PATIENT TO MAKE AN APPOINTMENT WITH [facility] FOR FOLLOW UP PATHOLOGY. DR. ARIAS 05/21/20 @ 10:30, DR. MCKEON 07/04/20 @ 1:15. SALLY SIGNED, NO COMPARE DATA REVIEWED PATIENT WIUSHES TO STAY WITH [facility]. IMM SERVED AND EXPLAINED, ONE GIVEN TO PATIENT AND ONE FILED IN CHART. DSICHARGE INSTRUCTIONS FAXED TO PCP, HOME HEALTH AND REVIEWED WITH PATIENT PER PRIMARY NURSE.
--- NOTE | 2020-05-08 14:10 | NUR ---
DISCHARGE INSTRUCTIONS FAXED TO [facility] , AUTH. [id number] WITH CONFORMATION RECIEVED
== END 2020-05-08 13:23 | disposition home health service (06) | DRG 91 ==
LOC: D.REHAB 15:10
PROVIDERS: ADMIT Emergency Medicine; ATTEND Emergency Medicine
DX: G72.81 Critical illness myopathy (principal); G93.41 Metabolic encephalopathy; J96.02 Acute respiratory failure with hypercapnia; N39.0 Urinary tract infection, site not specified; Z68.41 Body mass index [BMI] 40.0-44.9, adult; N17.9 Acute kidney failure, unspecified; L03.116 Cellulitis of left lower limb; R53.1 Weakness; R41.0 Disorientation, unspecified; R41.82 Altered mental status, unspecified; E11.9 Type 2 diabetes mellitus without complications; E78.5 Hyperlipidemia, unspecified; E66.01 Morbid (severe) obesity due to excess calories; E03.9 Hypothyroidism, unspecified; M62.81 Muscle weakness (generalized); R26.9 Unspecified abnormalities of gait and mobility; L53.9 Erythematous condition, unspecified; I73.9 Peripheral vascular disease, unspecified; I10 Essential (primary) hypertension; G89.29 Other chronic pain; D64.9 Anemia, unspecified; I12.9 Hypertensive chronic kidney disease with stage 1 through stage 4 chronic kidney disease, or unspecified chronic kidney disease; N18.9 Chronic kidney disease, unspecified; E87.5 Hyperkalemia